=== PATIENT | male | born 1935 | race Caucasian/White ===

== ENCOUNTER 2017-01-11 12:53 | Emergency (ER) | payer MEDICARE, BC ==
[2017-01-11 13:11] VITALS: BP 135/78
--- NOTE | 2017-01-11 13:43 | UC ---
Lower Extremity/Ankle HPI - HPI Summary HPI Summary: acute exacerbation of right foot pain---has an appointment with Dr. Parks on January 25, 2017 hoping to get an injection in foot for pain----has an appointment with Podiatry in 5 days- - History of Current Complaint Chief Complaint: UCLowerExtremity Stated Complaint: RIGHT FOOT PAIN Time Seen by Provider: 01/11/17 13:07 Hx Obtained From: Patient Onset/Duration: Gradual Onset, Lasting Weeks, Worse Since - past few days Severity Initially: Mild Severity Currently: Severe Pain Intensity: 10 Pain Scale Used: 0-10 Numeric Aggravating Factor(s): Standing, Ambulation Alleviating Factor(s): Rest, Elevation Able to Bear Weight: Yes - Allergies/Home Medications Allergies/Adverse Reactions: Allergies Allergy/AdvReac Type Severity Reaction Status Date / Time No Known Allergies Allergy Verified 01/11/17 12:59 PMH/Surg Hx/FS Hx/Imm Hx Previously Healthy: No Neurological History: Other Other Neurological History: Parkinsons - Surgical History Surgical History: Yes Surgery Procedure, Year, and Place: TURP, CYSTOSCOPY, BLADDER BIOPSIES, T&A, 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,BLADDER DISTENSION(STRETCHING-NO IMPLANT) - Family History Known Family History: Negative: Cardiac Disease, Hypertension, Diabetes - Social History Occupation: Retired Lives: With Family Alcohol Use: Occasionally Substance Use Type: None Smoking Status (MU): Former Smoker When Did the Patient Quit Smoking/Using Tobacco: 1966 Review of Systems Constitutional: Negative Skin: Negative Eyes: Negative ENT: Negative Respiratory: Negative Cardiovascular: Negative Gastrointestinal: Negative Genitourinary: Negative Motor: Negative Neurovascular: Negative Musculoskeletal: Arthralgia - 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---has on area near distal 2/3 meta tarsal that is calloused and the bone is painful Neurological: Negative Psychological: Negative Is Patient Immunocompromised?: No All Other Systems Reviewed And Are Negative: Yes Physical Exam Triage Information Reviewed: Yes Appearance: Well-Nourished, Ill-Appearing - chronic, Pain Distress - moderate Vital Signs: Initial Vital Signs Temp 98 F 01/11/17 13:00 Pulse 83 01/11/17 13:00 Resp 18 01/11/17 13:00 BP 135/78 01/11/17 13:00 Pulse Ox 96 01/11/17 13:00 Vital Signs Reviewed: Yes Eye Exam: Normal Eyes: Positive: Conjunctiva Clear ENT Exam: Normal ENT: Positive: Normal ENT inspection, Hearing grossly normal. 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---has on area near distal 2/ 3 meta tarsal that is calloused and the bone is painful Neurological Exam: Normal Neurological: Positive: Alert Psychological Exam: Normal Skin Exam: Normal Lower Extremity Course/Dx - Course Course Of Treatment: patient refused additional pain medication and walker--- encouraged patient to take tylenol, use orthodic follow with speciality care as planned - Differential Dx/Diagnosis Differential Diagnosis/HQI/PQRI: Arthritis, Contusion, Fracture (Closed), Sprain , Strain Provider Diagnoses: Right foot arthritis / pain Discharge - Discharge Plan Condition: Stable Disposition: HOME Patient Education Materials: Osteoarthritis (ED) Referrals: Jose J Pollock MD [Primary Care Provider] - Additional Instructions: Follow with Dr. Parks and podiatry as planned
== END 2017-01-11 13:41 | disposition home or self-care (01) ==
LOC: UCCORT 12:53
DX: M19.071 Primary osteoarthritis, right ankle and foot (principal); M79.671 Pain in right foot; G20 Parkinson's disease; Z87.891 Personal history of nicotine dependence
CPT/HCPCS: 99212; G0463

== ENCOUNTER 2018-05-23 17:44 | Emergency (ER) | payer MEDICARE, BC ==
[2018-05-23 17:53] VITALS: BP 144/63
--- NOTE | 2018-05-23 18:02 | UC ---
Respiratory Complaint HPI - HPI Summary HPI Summary: 83-year-old male comes in with a chief complaint of a cough for approximately 4 days. 4 days ago the cough was mild. He was eating 3 days ago when he coughed and sneezed the same time and he wonders if he aspirated some of the food that he was eating. He does not remember what he was eating. Ever since that time the cough has been worse. Cough is worse when he lays down. He feels a burning in his chest. He does not feel short of breath. He has chronic pedal edema that has not changed. He has no calf pain or history of DVT or pulmonary embolus. He does feel like he is wheezing. 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,BLADDER DISTENSION(STRETCHING-NO IMPLANT) - Family History Known Family History: Negative: Cardiac Disease, Hypertension, Diabetes - Social History Alcohol Use: Occasionally Substance Use Type: None Smoking Status (MU): Former Smoker When Did the Patient Quit Smoking/Using Tobacco: 1966 Review of Systems All Other Systems Reviewed And Are Negative: Yes Constitutional: Positive: Negative Skin: Positive: Negative Eyes: Positive: Negative ENT: Positive: Negative Respiratory: Positive: Cough Cardiovascular: Positive: Other - see hpi Motor: Positive: Negative Neurovascular: Positive: Negative Musculoskeletal: Positive: Edema - chronic Neurological: Positive: Negative Psychological: Positive: Negative Is Patient Immunocompromised?: No Physical Exam Triage Information Reviewed: Yes Appearance: Well-Appearing, No Pain Distress, Well-Nourished Vital Signs: Initial Vital Signs Temp 97.8 F 05/23/18 17:47 Pulse 83 05/23/18 17:47 Resp 24 05/23/18 17:47 BP 144/63 05/23/18 17:47 Pulse Ox 99 05/23/18 17:47 Vital Signs Reviewed: Yes Eye Exam: Normal Eyes: Positive: Conjunctiva Clear ENT: Positive: Pharynx normal Neck exam: Normal Neck: Positive: Supple Respiratory: Positive: Lungs clear, Normal breath sounds, No respiratory distress Cardiovascular: Positive: RRR Musculoskeletal: Positive: Edema @ - b/l, Other: - no calf tenderness Neurological Exam: Normal Neurological: Positive: Alert, Muscle Tone Normal Psychological Exam: Normal Psychological: Positive: Normal Response To Family, Age Appropriate Behavior Skin Exam: Normal UC Diagnostic Evaluation - Laboratory O2 Sat by Pulse Oximetry: 99 Respiratory Course/Dx - Course Course Of Treatment: I discussed the x-ray report with the patient and his . I do not see any obvious infiltrate at this time radiologist reading is pending. Plan is to treat with Augmentin for possible aspiration. Patient was given albuterol here in clinic which did not improve his symptoms at all therefore I don't plan to use a bronchodilator. Plan is to follow-up his primary care doctor and if things are not improving further evaluation and treatment potentially with a follow-up with a animal daycare provider. Patient does have some edema but he says that's chronic and his calves were nontender so at this time I do not believe that CHF or pulmonary embolism as the cause of his symptoms however over I did let the patient and his know that they need close follow-up especially if if he does not improve completely. Also let him know if he worsens with a fever more shortness of breath he's to go to the emergency department. - Differential Dx/Diagnosis Provider Diagnosis: Bronchitis, Cough, Aspiration into airway Discharge - Sign-Out/Discharge Documenting (check all that apply): Patient Departure All imaging exams completed and their final reports reviewed: No - Discharge Plan Condition: Stable Disposition: HOME Prescriptions: Amoxicillin/Clavulanate TAB* [Augmentin TAB 875*] 875 mg PO BID #20 tab Patient Education Materials: Acute Bronchitis (ED), Aspiration Pneumonia (DC), Chronic Cough (ED) Referrals: Jose J Pollock MD [Primary Care Provider] - Mona Nance MD [Medical Doctor] - Additional Instructions: FOLLOW UP WITH YOUR DOCTOR. GO TO THE EMERGENCY DEPARTMENT FOR ANY WORSENING OF YOUR CONDITION; CHEST PAIN, SHORTNESS OF BREATH, YOU FEEL ILL OR QUESTIONS OR CONCERNS. - Billing Disposition and Condition Condition: STABLE Disposition: Home
--- OUTSIDE RECORDS SUMMARY | 2018-05-23 18:52 | XMS REPORT | Continuity of Care Document ---
:1935 External Reference #:[id number] Author Name Janeth Verdin Care Team Providers Name Role Phone Jose J Pollock III, MD Primary Care Physician Unavailable Payers Type Date Identification Numbers Payment Provider Subscriber Policy Number: [id number] Medicare Dutch Chavira PayID: [id number] [address] [place] [address] Policy Number: [id number] [facility] Dutch Chavira Group Number: [id number] [address] PayID: [id number] [place] [address] Advance Directives Type Date Description Status Comment Other Directive 04/04/2007 Health Care Proxy Living Will Current and Verified Problems Date Description Provider Status Onset: 01/12/2011 Benign essential hypertension Jose J Pollock M.D. Active Onset: 01/12/2011 Pure hypercholesterolemia Jose J Pollock M.D. Active Onset: 02/09/2011 Aortic valve disorder Luciano Reno M.D. Active Onset: 02/09/2011 Pre-surgery evaluation Luciano Reno M.D. Active Onset: 02/09/2011 Electrocardiogram abnormal Luciano Reno M.D. Active Onset: 09/22/2011 Dysuria Jose J Pollock M.D. Active Onset: 02/15/2012 Mitral valve disorder Luciano Reno M.D. Active Onset: 02/25/2012 Abnormal gait Jose J Pollock M.D. Active Onset: 04/03/2012 Parkinson's disease Jose J Pollock M.D. 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 Active Onset: 01/03/2013 Chronic interstitial cystitis Jose J Pollock M.D. Active Onset: 10/11/2013 Low blood pressure Luciano Reno M.D. Active Onset: 02/04/2015 Essential hypertension Jose J Pollock M.D. Active Onset: 05/05/2018 Obstructive sleep apnea syndrome Jose J Pollock M.D. Active Family History Date Family Member(s) Problem(s) Comments Father due to Natural Causes () - ? cause; in his 80s Mother due to Bladder Cancer () - in her 80s Social History Type Date Description Comments Sex Unknown Marital Status Lives With Occupation Retired Cigarette Use Quit 40 Years Ago ETOH Use 01/03/2013 Occasionally consumes alcohol Tobacco Use Start: Unknown End: Patient is a former Unknown smoker Recreational Drug Use Denies Drug Use Tobacco Use Start: Unknown Started at 17, quit at 21. Smoked 5 cigs per day. Smoking Status Reviewed: 05/18/18 Started at 17, quit at 21. Smoked 5 cigs per day. Exercise Type/Frequency Exercises regularly some daily exercises, pt started a "boxing for Parkinson's dz" class Allergies, Adverse Reactions, Alerts Description No Known Drug Allergies Medications Medication Date Status Form Strength Qnty SIG Indications Ordering Provider Nitroglycerin 04/13 Active 30gra apply Dutch 0.2% ms sparingly Mecenas, Lidocaine 2% to rectal MD, FACS area as directed Protonix 11/[address] 20mg 90tab Take One Jose J s Tablet By Ramona Pollock M.D. Every Day Rollator 12/01 Active Misc 1unit with 4 s thick jesse Campos M.D. brakes, basket and seat. dx: m48.07 and g20 Sinemet 01/10 Active Tablets 25-100mg 405ta 1 po tid lisa Campos M.D. Miralax Active Packet [id number] 1mon 1/2 dose Unknown /0000 po qday Rapaflo Active Capsules 8mg 30cap 1 by Unknown /0000 s mouth every day Lyrica Active Capsules 100mg 120ca 1 by Unknown /0000 ps mouth daily Zyrtec Allergy Active Tablets 10mg 1 by Unknown /0000 mouth every day Tylenol Active Capsules 325mg 120ca 2 tablets Unknown /0000 ps every 8 hours as needed for pain Amlodipine Active Tablets 10mg 90tab 1 by Jose J Patel Besmiah / s mouth Maris, every day M.D. Advil Active Tablets 200mg 1 tabs 2 Unknown / times a day as needed Hydrocodone-Aceta Active Tablets 10-325mg 1 tab by Unknown minophen / mouth every 6 hours as needed Pyridium Active Tablets 100mg one by Unknown / mouth three times a day for 3 days prn Requip 08/02 Hx Tablets 0.5mg 90tab 1 tabs by s mouth at [facility], - bedtime M.D. 05/03 Tylenol 8 Hour 02/28 Hx Tablets ER 650mg See Unknown Arthritis Pain /2015 Instructi - ons 02/07 Lioresal 02/28 Hx Tablets 10mg Bedtime Unknown Repack /2015 - 05/01 Dawes 02/28 Hx Tablets 10-325mg Q4H - 05/02 Pyridium 02/28 Hx Tablets 100mg Three Times - Daily 05/01 [facility] XR 02/28 Hx Caps ER 20mg 3 tabs 24HR orally - daily 11/23 Requip 10 Hx Tablets 1mg 0.5 by mouth at [facility], - breafeast M.D. 08/02 , 0.5 at 4pm and 1.75 at bedtime- doesnt take breakfast or 4 pm dose,just at hs Requip 09/24 Hx Tablets 1.5mg 1 [facility].. M.[facility]. 03/24 Cialis 12/31 Hx Tablets 20mg 14tab take 1 Jose J Patel /2013 s daily, Maris, - prn M.D. 09/13 Enalapril Maleate 10/17 Hx Tablets 2.5mg 90tab take 1 401.1 Jose J Patel s tab by Juan Jose Pollock at M.D. 11/21 bedtime Requip 08/27 Hx Tablets 0.5mg 810ta Take 3 bs tabs po Andres - tid M.DReginald 09/24 Cialis 01/03 Hx Tablets 10mg 3tabs qd prn Jose J Patel Juan Jose Pollock.DReginald 08/27 Azilect 09/07 Hx Tablets 1mg 90tab take one Carmen s tablet by Andres - mouth M.DReginald 10/23 every Requip 09/01 Hx Tablets 0.5mg 810ta 1 by Carmen bs mouth Juan Jose Campos M.D. 09/01 Enalapril Maleate 08/24 Hx Tablets 10mg 90tab take one Jose J Patel s tablet by Maris - ramona one M.D. 10/17 daily Ropinirole HCL 04/27 Hx Tablets 0.25mg 120ta 1 tab by Silvestre lisa mouth and Emilee, - 2 tabs M.DReginald 09/01 night Hydrocodone 04/03 Hx Tablets 10-300mg 60tab 1 tablet Jose J Patel Bitartrate/Acetflorecita s by preeti Chakraborty - every 4 M.D. 11/07 hours needed Carbidopa/Levodop 02/20 Hx Tablets 25-100mg 90tab one po Ernst /2012 s tid Juan Jose Hebert M.D. 02/20 Ropinirole HCL 02/20 Hx Tablets 0.25mg 120ta 1 tab by Silvestre lisa mouth and Emilee, - 2 tabs M.DReginald 04/27 night Enalapril Maleate 02/14 Hx Tablets 10mg 90tab 1 po qd Jose J Patel Juan Jose Nina M.D. 06/05 Neurontin 12/23 Hx Tablets 600mg 90tab 1 po tid Farooq s Juan Jose Mc M.D.,FACP 12/23 Gabapentin 12/23 Hx Tablets 600mg 180ta take one Jose J Patel bs tablet by Juan Jose Pollock M.D. 12/05 times a day Cymbalta 10/[address] 30mg 90cap 1 po qam Jose J Patel Juan Jose Pool M.D. 02/14 Yaya 09/21 Hx Tablets 5-40mg 30tab one per Jose J Patel s Juan Jose Dhaliwal M.D. 09/02 Cymbalta 09/[address] 60mg 1 po qd Jose J Patel Juan Jose Schmitz M.D. 10/25 Physical Therapy 04/05 Hx pelvice 781.2 Jose J EReginald floor Juan Jose Pollock M.D. 08/24 on interstit ial cystitis Vesicare 12/01 Hx Tablets 5mg 90tab 1 po qd Juan Jose Mcgee M.D. 04/05 Zithromax Z-Ben 08/19 Hx Tablets 250mg 1tabs 2tab 466.0 today and Juan Jose Delcid 1tab Lacie 11/05 daily x 4days Neurontin 11/27 Hx Tablets 600mg 180ta 1 in am, Farooq bs 1tab in Neha Barrera - Lacie,[facility] 12/23 Enalapril Maleate 04/03 Hx Tablets 5mg 90tab 1 po qd Maris s IIIJuan Jose 04/03 Enalapril Maleate 04/03 Hx Tablets 20mg 90tab 1 po qd Jose J Patel Juan Jose Nina M.D. 08/24 Cialis 11/25 Hx Tablets 5mg 30tab 1 PO prn Jose J Patel Juan Jose Nina M.D. 01/03 Astelin 08/22 Hx Solution 137mcg/Sp 1unit 2 bid prn Jose J Patel Juan Jose Patel M.D. 04/02 Metamucil 08/22 Hx Capsules 0.52gm 30cap po qd Jose J Patel s Juan Jose Pollock M.D. 11/25 Protonix 08/[address] 20mg 90tab Take One Jose J Patel s Tablet By Juan Jose Pollock M.D. 11/07 Every Day Cystoprotek 11/21 Hx herbal med taken Physician - 1 bid Practices 04/05 Prelief 11/21 Hx OTC with Jose J Patel meals Juan Jose Pollock- Lacie 11/07 "de-acidi fy the food" Saw Marion 11/21 Hx Capsules 160mg 1 po qd Physician - Practices 02/14 Flonase 11/21 Hx Suspension 50mcg/Act 1Bott 1 Jose J Patel le intranasa Juan Jose Pollock to Lacie 08/22 nostril daily Prevacid Hx Capsules DR 15mg 180ca 1 po bid Jose J Patel Juan Jose Wilkins M.D. 08/22 Paxil Hx Tablets 10mg 90tab 1 tab po Jose J Patel / s Juan Jose Ramirez M.D. 09/21 Multi-Vitamin Hx Tablets 1 PO qd Other Physician - Practices 08/27 Glucosamine Hx Capsules 500-400 qd Other Chondroitin Physician - Practices 09/02 Colace Hx Capsules 100mg 30cap 1 PO bid Other s Physician - Practices 02/14 Fiber Con Hx prn Other Physician - Practices 11/21 Aspirin Hx Tablets 81mg 100ta 1 PO qd Nato, bs MD Danny - 08/24 Votaw-3 Hx Capsules 1000mg 30cap 1 PO qd. Other s Physician - Practices 02/14 Cynthia Hx Tablets 180mg 90tab 1 po qd Jose J E. / s Juan Jose Pollock M.D. 10/10 Azo Standard Hx Tablets 97.5mg prn Unknown Maximum Strength /0000 - 05/01 Flomax Hx Capsules 0.4mg 30cap 1 po qd Unknown /0000 s - 02/24 Valium 00/00 Hx Tablets 5mg 60tab 1/2 tab Jose J E. /0000 s bid prn Maris, - M.D. 09/20 Ibuprofen 00/00 Hx Capsules 200mg prn Unknown / - 08/24 Hydrocodone /00 Hx Tablets 5-500mg 75tab 1 tablet Unknown Bitartrate/Acetam /0000 s by mouth inophen - every 4 12/10 hours needed Azilect Hx Tablets 1mg 1 po Unknown / daily - 10/02 Trospium Chloride Hx Caps ER 60mg Rosas, ER /0000 24HR Juan Jose Brannon MD 01/03 Requip Hx Tablets 0.25mg 180ta 2 po tid Unknown / bs - 09/01 Requip 0000 Hx Tablets 1mg 90tab take one Unknown s tablet by - mouth tid 08/27 Cysto Protek /00 Hx qd / - 01/03 Excedrin Migraine Hx Tablets 250-250-6 qd otc Unknown / 5mg - 08/27 [facility] XR Hx Caps ER 60mg 30cap 1 po qd Unknown / 24HR s - 09/20 Cystoprotek Hx Capsule 2 caps po Unknown / daily - 08/27 Aspirin Low Dose Hx Tablets 81mg 30tab 1 po qd Unknown / s - 09/02 Requip 0000 Hx Tablets 0.25mg 90tab take one Juliana M. /0000 s by mouth Feliz, - every M.D. 09/14 night at /2016 bedtime, together with three 0.5mg tabs Singulair Hx Tablets 10mg 90tab take one Jose J E. /0000 s tablet by Maris, - mouth at M.D. 02/04 bedtime /2014 prn Aloe Vera 00 Hx Capsules 4 PO Unknown / Daily. - 10/10 Aleve 00 Hx Tablets 220mg 1 Tablet Unknown /0000 Daily - 01/22 Myrbetriq Hx Tablets ER 50mg 1 by Unknown /0000 24HR mouth - every day 11/07 Nortriptyline HCL 00/ Hx Capsules 10mg 90cap 1 po Unknown /0000 s qhs.. - 12/24 Baclofen Hx Tablets 10mg 90tab 1/2 tab Unknown /0000 s bid - 09/02 Trospium Chloride Hx Tablets 60mg 60tab 1 tab by Unknown /0000 s mouth - once a /2018 Carbidopa-Levodop Hx Tablets 25-100mg 90tab 1 by Unknown a /0000 s mouth - three 05/24 times day Azo Tabs Hx Tablets 95mg prn Unknown /0000 - 09/22 Tylenol Extra Hx Tablets 500mg 2 by Unknown Strength /0000 mouth as - needed 10/30 Baclofen Hx Tablets 10mg 1 by Unknown /0000 mouth two - times a 11/07 day needed Azelastine HCL Hx Solution 0.1% 2 Unknown (Nasal) /0000 inhalatio - ns in 11/02 nostril twice daily as needed Aleve Hx Tablets 220mg 1 po as Unknown /0000 needed - 11/07 [facility] XR Hx Caps ER 60mg 1 po qday Unknown /0000 24HR - 11/02 Uribel Hx Capsules 118mg 1 tab Unknown /0000 orally - every 4 /16 hrs prn /2017 Citrucel Hx Tablets 500mg 2 tabs Unknown /0000 twice a - day 11/07 Calcium Hx 65mg 1 tab Unknown Glycerophosphate /0000 daily by - mouth 04/10 Seroquel Hx Tablets 25mg 45tab take 1/2 Carmen /0000 s tab by Andres, - mouth at M.D. 05/05 bedtime /2018 Sorbitol Hx Solution 70% 30 Unknown / millilite - rs by 02/01 mouth needed constipat ion Prelief Hx Tablets 340(65-50 take Unknown /0000 )mg - (CA-P) 05/03 Immunizations CPT Code Status Date Vaccine Lot # [id number] Given 02/02/2018 Fluzone High Dose 63013 Given 02/07/2017 Influenza Virus Vaccine, Quadrivalent, Split, Preservative Free 58538 Given 02/26/2016 Fluzone High Dose 50437 Given 02/04/2015 Influenza Virus Vaccine, Quadrivalent, Split, [id number] Preservative Free 22874 Given 09/02/2014 Pneumococcal Conjugate Vaccine 13 Valent For [id number] Intramuscular Use 03205 Given 01/23/2014 Tdap - Tetanus/Diptheria/Acellular Pertussis [id number] 74343 Given 01/23/2014 Influenza Virus Vaccine, Quadrivalent, Split, [id number] Preservative Free Q2038 Given 02/03/2012 Fluzone Vaccine Q2038 Given 01/25/2012 Fluzone Vaccine Q2038 Given 01/04/2011 Fluzone Vaccine [id number] 67923 Given 02/10/2010 Influenza Virus 3Yrs & Over [id number] 49348 Given 02/13/2009 Influenza Virus 3Yrs & Over 63246 Given 11/22/2007 Zoster (Zostavax) [id number] 32179 Given 11/07/2003 Td (History By Patient) 24650 Given 10/20/2000 Pneumovax (History By Patient) Vital Signs Date Vital Result Comment 05/18/2018 10:17am Heart Rate 74 /min Respiratory Rate 18 /min Body Temperature 97.0 F 05/09/2018 1:32pm Height 62.5 inches 5'2.50" Weight 180.00 lb BP Systolic Sitting 108 mmHg BP Diastolic Sitting 66 mmHg Respiratory Rate 16 /min Pain Level 3 BMI (Body Mass Index) 32.4 kg/m2 05/05/2018 9:42am Height 62.5 inches 5'2.50" Weight 183.00 lb Heart Rate 73 /min BP Systolic 100 mmHg BP Diastolic 56 mmHg Body Temperature 97.4 F O2 % BldC Oximetry 97 % BMI (Body Mass Index) 32.9 kg/m2 04/13/2018 9:58am Height 62.5 inches 5'2.50" Weight 184.00 lb Heart Rate 76 /min BP Systolic 146 mmHg BP Diastolic 90 mmHg Respiratory Rate 18 /min Body Temperature 97.7 F BMI (Body Mass Index) 33.1 kg/m2 04/11/2018 12:02pm Height 62.5 inches 5'2.50" Weight 184.00 lb Heart Rate 74 /min BP Systolic 118 mmHg BP Diastolic 72 mmHg BMI (Body Mass Index) 33.1 kg/m2 02/07/2018 11:01am Height 62.5 inches 5'2.50" Weight 175.00 lb BP Systolic Sitting 124 mmHg BP Diastolic Sitting 68 mmHg Respiratory Rate 17 /min Pain Level 5 BMI (Body Mass Index) 31.5 kg/m2 12/01/2017 1:25pm Height 62.5 inches 5'2.50" Weight 176.00 lb Heart Rate 60 /min BP Systolic Sitting 116 mmHg lue rg cuff BP Diastolic Sitting 62 mmHg lue rg cuff BMI (Body Mass Index) 31.7 kg/m2 Ejection Fraction 55-60% echo 12/23/16 11/24/2017 10:22am Height 62.5 inches 5'2.50" Weight 174.00 lb Heart Rate 69 /min BP Systolic Sitting 120 mmHg BP Diastolic Sitting 50 mmHg O2 % BldC Oximetry 96 % BMI (Body Mass Index) 31.3 kg/m2 11/08/2017 11:07am Height 62.5 inches 5'2.50" Weight 172.00 lb Heart Rate 70 /min BP Systolic Sitting 116 mmHg BP Diastolic Sitting 66 mmHg Respiratory Rate 20 /min O2 % BldC Oximetry 93 % BMI (Body Mass Index) 31.0 kg/m2 08/23/2017 3:46pm Height 62.5 inches 5'2.50" Weight 178.00 lb Heart Rate 81 /min BP Systolic Sitting 144 mmHg BP Diastolic Sitting 78 mmHg Respiratory Rate 16 /min Pain Level 2 O2 % BldC Oximetry 96 % Ra BMI (Body Mass Index) 32.0 kg/m2 05/23/2017 2:51pm Weight 185.00 lb Heart Rate 93 /min BP Systolic Sitting 105 mmHg BP Diastolic Sitting 65 mmHg Body Temperature 97.4 F O2 % BldC Oximetry 96 % 05/03/2017 4:22pm Height 62.5 inches 5'2.50" Weight 183.00 lb Heart Rate 90 /min BP Systolic 116 mmHg BP Diastolic 74 mmHg Respiratory Rate 20 /min Pain Level 8 O2 % BldC Oximetry 96 % BMI (Body Mass Index) 32.9 kg/m2 05/02/2017 10:39am Height 62.5 inches 5'2.50" Weight 182.00 lb Heart Rate 88 /min BP Systolic Sitting 150 mmHg Right arm BP Diastolic Sitting 100 mmHg Right arm Body Temperature 97.3 F Pain Level 9 burning/sharp pain rectum O2 % BldC Oximetry 96 % BMI (Body Mass Index) 32.8 kg/m2 02/08/2017 10:35am Height 63 inches 5'3" Weight 175.00 lb Heart Rate 83 /min BP Systolic Sitting 124 mmHg BP Diastolic Sitting 74 mmHg Respiratory Rate 16 /min Pain Level 7 O2 % BldC Oximetry 98 % Ra BMI (Body Mass Index) 31.0 kg/m2 01/11/2017 12:00am Weight 175.00 lb Heart Rate 83 /min BP Systolic 135 mmHg BP Diastolic 78 mmHg Respiratory Rate 18 /min Body Temperature 98.0 F O2 % BldC Oximetry 96 % 12/07/2016 3:08pm Height 63 inches 5'3" Weight 177.00 lb with shoes Heart Rate 94 /min BP Systolic Sitting 110 mmHg LA reg cuff BP Diastolic Sitting 68 mmHg LA reg cuff BMI (Body Mass Index) 31.4 kg/m2 Ejection Fraction 55% - 60% echo 11/28/14 12/01/2016 11:44am Height 63 inches 5'3" Weight 175.00 lb Heart Rate 78 /min BP Systolic Sitting 98 mmHg BP Diastolic Sitting 60 mmHg Respiratory Rate 16 /min BMI (Body Mass Index) 31.0 kg/m2 11/03/2016 9:03am Height 63 inches 5'3" Heart Rate 92 /min BP Systolic 124 mmHg BP Diastolic 80 mmHg Respiratory Rate 20 /min Pain Level 9 10/15/2016 9:44am Height 63 inches 5'3" Weight 179.25 lb Heart Rate 90 /min BP Systolic 120 mmHg BP Diastolic 80 mmHg Body Temperature 98.1 F O2 % BldC Oximetry 95 % BMI (Body Mass Index) 31.7 kg/m2 09/14/2016 10:21am Height 63 inches 5'3" Weight 180.25 lb Heart Rate 90 /min BP Systolic Sitting 118 mmHg BP Diastolic Sitting 68 mmHg Respiratory Rate 17 /min Pain Level 0 BMI (Body Mass Index) 31.9 kg/m2 04/28/2016 9:45am Height 63 inches 5'3" Weight 185.00 lb BP Systolic Sitting 142 mmHg BP Diastolic Sitting 78 mmHg Pain Level 2 BMI (Body Mass Index) 32.8 kg/m2 03/31/2016 1:06pm Height 63 inches 5'3" Weight 185.00 lb BP Systolic 126 mmHg BP Diastolic 70 mmHg Pain Level 2 BMI (Body Mass Index) 32.8 kg/m2 03/24/2016 11:15am Height 63 inches 5'3" Weight 185.00 lb Heart Rate 101 /min BP Systolic Sitting 142 mmHg BP Diastolic Sitting 76 mmHg Body Temperature 97.7 F O2 % BldC Oximetry 97 % BMI (Body Mass Index) 32.8 kg/m2 03/08/2016 11:24am Height 63 inches 5'3" Weight 180.00 lb Heart Rate 72 /min BP Systolic 122 mmHg BP Diastolic 72 mmHg Pain Level 9 BMI (Body Mass Index) 31.9 kg/m2 03/01/2016 11:15am Heart Rate 78 /min BP Systolic Sitting 120 mmHg BP Diastolic Sitting 70 mmHg Pain Level 0 O2 % BldC Oximetry 96 % 12/23/2015 3:21pm Height 65 inches 5'5" Weight 180.00 lb with shoes Heart Rate 80 /min BP Systolic Sitting 112 mmHg LA reg cuff BP Diastolic Sitting 60 mmHg LA reg cuff Respiratory Rate 17 /min BMI (Body Mass Index) 30.0 kg/m2 Ejection Fraction 55-60% date 11/28/14 ECHO 12/23/2015 9:48am Height 65 inches 5'5" Weight 180.00 lb Heart Rate 64 /min BP Systolic Sitting 136 mmHg BP Diastolic Sitting 70 mmHg BMI (Body Mass Index) 30.0 kg/m2 09/23/2015 12:01pm Weight 184.00 lb Heart Rate 77 /min BP Systolic Sitting 112 mmHg BP Diastolic Sitting 69 mmHg Body Temperature 96.5 F 09/02/2015 10:20am Height 63.5 inches 5'3.50" Weight 180.00 lb Heart Rate 84 /min BP Systolic Sitting 108 mmHg BP Diastolic Sitting 66 mmHg BMI (Body Mass Index) 31.4 kg/m2 02/05/2015 9:45am Height 63.5 inches 5'3.50" Weight 180.00 lb Heart Rate 76 /min BP Systolic Sitting 114 mmHg BP Diastolic Sitting 70 mmHg Respiratory Rate 14 /min BMI (Body Mass Index) 31.4 kg/m2 02/04/2015 1:31pm Height 63.5 inches 5'3.50" Weight 182.50 lb Heart Rate 86 /min BP Systolic Sitting 132 mmHg BP Diastolic Sitting 84 mmHg Respiratory Rate 16 /min Body Temperature 97.6 F Pain Level 0 O2 % BldC Oximetry 93 % BMI (Body Mass Index) 31.8 kg/m2 01/21/2015 10:30am Height 65 inches 5'5" Weight 180.00 lb Heart Rate 74 /min BP Systolic Sitting 110 mmHg BP Diastolic Sitting 64 mmHg BMI (Body Mass Index) 30.0 kg/m2 12/25/2014 10:44am Height 65 inches 5'5" Weight 182.50 lb w/ shoes Heart Rate 80 /min BP Systolic Sitting 114 mmHg LA, reg BP Diastolic Sitting 62 mmHg LA, reg BMI (Body Mass Index) 30.4 kg/m2 Ejection Fraction 55-60% 11/28/14 ECHO 12/03/2014 1:34pm Height 65 inches 5'5" Weight 178.00 lb with shoes Heart Rate 88 /min regular BP Systolic 116 mmHg left arm home cuff BP Diastolic 65 mmHg left arm home cuff BP Systolic Sitting 114 mmHg left arm reg cuff BP Diastolic Sitting 66 mmHg left arm reg cuff Respiratory Rate 18 /min BMI (Body Mass Index) 29.6 kg/m2 11/21/2014 3:07pm Height 65 inches 5'5" Weight 178.00 lb w/o shoes Heart Rate 78 /min reg BP Systolic 84 mmHg Rue, reg cuff BP Diastolic 60 mmHg Rue, reg cuff BP Systolic Sitting 84 mmHg Lue, reg cuff BP Diastolic Sitting 52 mmHg Lue, reg cuff Respiratory Rate 18 /min BMI (Body Mass Index) 29.6 kg/m2 Ejection Fraction 60-65% as of 11/06/13 echo 09/24/2014 9:36am Height 65 inches 5'5" Weight 180.00 lb Heart Rate 80 /min BP Systolic Sitting 108 mmHg BP Diastolic Sitting 66 mmHg BMI (Body Mass Index) 30.0 kg/m2 09/19/2014 2:12pm Height 65 inches 5'5" Weight 181.00 lb Heart Rate 89 /min BP Systolic Sitting 100 mmHg BP Diastolic Sitting 60 mmHg Body Temperature 97.8 F O2 % BldC Oximetry 96 % BMI (Body Mass Index) 30.1 kg/m2 09/02/2014 11:33am Weight 182.00 lb Heart Rate 54 /min BP Systolic Sitting 138 mmHg BP Diastolic Sitting 72 mmHg Body Temperature 97.6 F O2 % BldC Oximetry 91 % 04/19/2014 10:23am Height 65 inches 5'5" Weight 183.00 lb with shoes Heart Rate 84 /min BP Systolic Sitting 116 mmHg LA, reg cuff BP Diastolic Sitting 62 mmHg LA, reg cuff BP Systolic Standing 108 mmHg LA BP Diastolic Standing 64 mmHg LA Respiratory Rate 16 /min BMI (Body Mass Index) 30.4 kg/m2 04/09/2014 10:20am Height 65 inches 5'5" Weight 165.00 lb Heart Rate 86 /min BP Systolic Sitting 104 mmHg BP Diastolic Sitting 60 mmHg BMI (Body Mass Index) 27.5 kg/m2 01/23/2014 10:32am Weight 175.75 lb Heart Rate 83 /min BP Systolic Sitting 130 mmHg BP Diastolic Sitting 52 mmHg Body Temperature 97.0 F O2 % BldC Oximetry 92 % 12/25/2013 10:31am Weight 165.00 lb Heart Rate 84 /min BP Systolic Sitting 104 mmHg BP Diastolic Sitting 60 mmHg Respiratory Rate 12 /min 12/05/2013 11:03am Height 65 inches 5'5" Weight 168.00 lb w/clothes and shoes Heart Rate 84 /min BP Systolic Sitting 134 mmHg BP Diastolic Sitting 76 mmHg Respiratory Rate 14 /min BMI (Body Mass Index) 28.0 kg/m2 11/01/2013 12:58pm Height 65 inches 5'5" Weight 168.50 lb Heart Rate 76 /min BP Systolic Sitting 98 mmHg BP Diastolic Sitting 50 mmHg Respiratory Rate 16 /min BMI (Body Mass Index) 28.0 kg/m2 10/17/2013 2:07pm Height 65 inches 5'5" Weight 170.00 lb Heart Rate 80 /min BP Systolic 89 mmHg home unit, left BP Diastolic 48 mmHg home unit, left BP Systolic Sitting 98 mmHg left, reg BP Diastolic Sitting 58 mmHg left, reg BP Systolic Standing 72 mmHg left, stand BP Diastolic Standing 48 mmHg left, stand BMI (Body Mass Index) 28.3 kg/m2 10/11/2013 2:11pm Height 65 inches 5'5" Weight 167.75 lb Heart Rate 80 /min BP Systolic Sitting 92 mmHg BP Diastolic Sitting 46 mmHg Respiratory Rate 14 /min BMI (Body Mass Index) 27.9 kg/m2 09/20/2013 3:29pm Weight 173.25 lb Heart Rate 84 /min BP Systolic Sitting 150 mmHg BP Diastolic Sitting 90 mmHg Body Temperature 98.5 F 08/27/2013 10:43am Weight 171.00 lb Heart Rate 82 /min BP Systolic Sitting 114 mmHg BP Diastolic Sitting 64 mmHg Body Temperature 97.1 F 02/16/2013 1:23pm Height 64 inches 5'4" Weight 167.00 lb Heart Rate 76 /min BP Systolic Sitting 150 mmHg BP Diastolic Sitting 90 mmHg Respiratory Rate 16 /min BMI (Body Mass Index) 28.7 kg/m2 01/03/2013 2:17pm Height 64 inches 5'4" Weight 171.00 lb Heart Rate 92 /min BP Systolic Sitting 120 mmHg BP Diastolic Sitting 68 mmHg BMI (Body Mass Index) 29.3 kg/m2 09/07/2012 1:12pm Heart Rate 80 /min BP Systolic Sitting 114 mmHg BP Diastolic Sitting 60 mmHg Respiratory Rate 12 /min 08/24/2012 11:23am Weight 167.00 lb Heart Rate 76 /min BP Systolic Sitting 118 mmHg BP Diastolic Sitting 80 mmHg 04/03/2012 3:38pm Height 64.25 inches 5'4.25" Weight 168.00 lb Heart Rate 80 /min BP Systolic Sitting 128 mmHg BP Diastolic Sitting 72 mmHg BMI (Body Mass Index) 28.6 kg/m2 02/25/2012 9:57am Height 64.5 inches 5'4.50" Weight 169.00 lb Heart Rate 84 /min BP Systolic Sitting 120 mmHg BP Diastolic Sitting 76 mmHg BMI (Body Mass Index) 28.6 kg/m2 02/15/2012 2:13pm Height 64.5 inches 5'4.50" Weight 169.00 lb Heart Rate 80 /min BP Systolic Sitting 130 mmHg BP Diastolic Sitting 80 mmHg Respiratory Rate 20 /min BMI (Body Mass Index) 28.6 kg/m2 12/01/2011 9:53am Height 64.5 inches 5'4.50" Weight 165.00 lb Heart Rate 80 /min BP Systolic Sitting 144 mmHg BP Diastolic Sitting 76 mmHg BMI (Body Mass Index) 27.9 kg/m2 09/22/2011 1:05pm Height 64.5 inches 5'4.50" Weight 171.00 lb Heart Rate 70 /min BP Systolic Sitting 118 mmHg BP Diastolic Sitting 60 mmHg BMI (Body Mass Index) 28.9 kg/m2 04/05/2011 10:52am Height 64.5 inches 5'4.50" Weight 166.00 lb Heart Rate 88 /min BP Systolic Sitting 154 mmHg BP Diastolic Sitting 84 mmHg BMI (Body Mass Index) 28.1 kg/m2 02/09/2011 2:12pm Weight 166.00 lb Heart Rate 76 /min BP Systolic 144 mmHg BP Diastolic 72 mmHg Respiratory Rate 16 /min 12/01/2010 9:54am Weight 164.00 lb Heart Rate 72 /min BP Systolic Sitting 150 mmHg BP Diastolic Sitting 90 mmHg 08/19/2010 11:07am Weight 164.00 lb Heart Rate 72 /min BP Systolic Sitting 124 mmHg BP Diastolic Sitting 72 mmHg Body Temperature 98.1 F lt ear 04/28/2010 11:04am Weight 166.00 lb Heart Rate 76 /min BP Systolic Sitting 158 mmHg BP Diastolic Sitting 84 mmHg 04/13/2010 9:29am Weight 167.00 lb Heart Rate 80 /min BP Systolic 160 mmHg BP Diastolic 82 mmHg Respiratory Rate 18 /min 02/10/2010 2:05pm Weight 166.00 lb Heart Rate 78 /min BP Systolic Sitting 132 mmHg BP Diastolic Sitting 82 mmHg 01/07/2010 4:13pm Weight 165.00 lb Heart Rate 72 /min BP Systolic Sitting 150 mmHg BP Diastolic Sitting 88 mmHg 11/27/2009 9:05am Weight 166.00 lb Heart Rate 73 /min BP Systolic Sitting 164 mmHg BP Diastolic Sitting 98 mmHg 10/28/2009 9:54am Weight 165.00 lb Heart Rate 78 /min BP Systolic Sitting 160 mmHg BP Diastolic Sitting 84 mmHg 04/29/2009 11:01am Weight 170.00 lb Heart Rate 72 /min BP Systolic Sitting 160 mmHg BP Diastolic Sitting 82 mmHg 04/03/2009 4:10pm Heart Rate 68 /min BP Systolic Sitting 176 mmHg BP Diastolic Sitting 86 mmHg 03/26/2009 11:45am Height 64.5 inches 5'4.50" Weight 175.00 lb Heart Rate 78 /min BP Systolic Sitting 160 mmHg BP Diastolic Sitting 72 mmHg BMI (Body Mass Index) 29.6 kg/m2 11/25/2008 9:11am Height 64.5 inches 5'4.50" Weight 165.00 lb Heart Rate 76 /min BP Systolic Sitting 150 mmHg BP Diastolic Sitting 94 mmHg BMI (Body Mass Index) 27.9 kg/m2 08/22/2008 11:41am Height 64.5 inches 5'4.50" Weight 172.00 lb Heart Rate 80 /min BP Systolic Sitting 144 mmHg BP Diastolic Sitting 80 mmHg BMI (Body Mass Index) 29.1 kg/m2 11/22/2007 9:03am Height 64.5 inches 5'4.50" Weight 164.00 lb down 7# since last year Heart Rate 68 /min BP Systolic Sitting 114 mmHg BP Diastolic Sitting 80 mmHg BMI (Body Mass Index) 27.7 kg/m2 11/08/2006 9:19am Height 64.5 inches 5'4.50" Weight 171.00 lb Heart Rate 68 /min BP Systolic Sitting 134 mmHg BP Diastolic Sitting 88 mmHg BMI (Body Mass Index) 28.9 kg/m2 Results Test Date Facility Test Result H/L Range Note Comp Metabolic Panel 05/01/[address] [facility] Sodium 143 mmol/L N 135-145 [address] [place] [address] [phone] Potassium 4.1 mmol/L N 3.5-5.0 Chloride 109 mmol/L N 101-111 Co2 Carbon Dioxide 27 mmol/L N 22-32 Anion Gap 7 mmol/L N 2-11 Glucose 77 mg/dL N 70-100 Blood Urea Nitrogen 15 mg/dL N 6-24 Creatinine 1.28 mg/dL High 0.67-1.17 BUN/Creatinine Ratio 11.7 N 8-20 Calcium 9.4 mg/dL N 8.6-10.3 Total Protein 6.5 g/dL N 6.4-8.9 Albumin 4.3 g/dL N 3.2-5.2 Globulin 2.2 g/dL N 2-4 Albumin/Globulin Ratio 2.0 N 1-3 Total Bilirubin 0.90 mg/dL N 0.2-1.0 Alkaline Phosphatase 56 U/L N 34-104 Alt 8 U/L N 7-52 Ast 21 U/L N 13-39 Egfr Non- 53.8 >60 Egfr 65.1 >60 1 Lipid Profile 05/01/[address] [facility] Triglycerides 89 mg/dL 2 (Trig/Chol/HDL) [address] [place] [address] [phone] Cholesterol 185 mg/dL 3 HDL Cholesterol 48.0 mg/dL 4 LDL Cholesterol 119 mg/dL 5 Urinalysis Profile 04/20/[address] [facility] Urine Color Yellow [address] [place] [address] [phone] Urine Appearance Clear Urine Specific Cashion 1.012 N 1.010-1.030 Urine pH 6.0 N 5-9 Urine Urobilinogen Negative Negative Urine Ketones Negative Negative Urine Protein Negative Negative Urine Leukocytes 2+ Abnormal Negative Urine Blood Negative Negative Urine Nitrite Negative Negative Urine Bilirubin Negative Negative Urine Glucose Negative Negative Urine White Blood Cell 3+(>20/hpf) Abnormal Absent Urine Red Blood Cell 1+(3-5/hpf) Abnormal Absent Urine Bacteria Absent Absent Urine Squamous Epithelial Cell Present Abnormal Absent Urine Hyaline Casts Present Abnormal Absent Urine Culture And 04/20/[address] [facility] Urine Culture SEE RESULT [address] [place] [address] [phone] Ua Routine 04/20/2018 [facility] Ua Specific <pending > [address] [place] [address] [phone] Ua PH <pending> Ua Color <pending> Ua Appera <pending> Ua WBC <pending> Ua Protein <pending> Ua Glucose <pending> Ua Ketones <pending> Ua Bilirubin <pending> Ua Urobilinogen <pending> Ua Nitrite <pending> Ua Occult Blood <pending> Culture Urine & 04/20/2018 [facility] Culture Urine < pending> Sensitvities [address] [place] [address] [phone] Urinalysis Profile 05/19/[address] [facility] Urine Color Ghazala [address] [place] [address] [phone] Urine Appearance Clear Urine Specific Cashion 1.015 N 1.010-1.030 Urine pH 6.0 N 5-9 Urine Urobilinogen Positive Abnormal Negative Urine Ketones Trace Abnormal Negative Urine Protein 1+(30 mg/dL) Abnormal Negative Urine Leukocytes Negative Negative Urine Blood 2+ Abnormal Negative Urine Nitrite Positive Abnormal Negative Urine Bilirubin Negative Negative Urine Glucose Negative Negative Urine White Blood Cell 3+(>20/hpf) Abnormal Absent Urine Red Blood Cell 3+(>10/hpf) Abnormal Absent Urine Bacteria Absent Absent Urine Squamous Epithelial Cell Present Abnormal Absent Urine Culture And 05/19/[address] [facility] Urine Culture SEE RESULT [address] [place] [address] [phone] Vitamin B12 And 04/27/[address] [facility] Vitamin B12 315 pg/mL N 180-91 8 Folate Serum [address] [place] [address] [phone] Folic Acid (Folate) > 24.20 ng/mL >3.99 9 Laboratory test 04/27/[address] [facility] Magnesium 2.0 mg/dL N 1.9-2.7 10 finding [address] [place] [address] [phone] Lipid Profile 04/27/[address] [facility] Triglycerides 83 mg/dL 11 (Trig/Chol/HDL) [address] [place] [address] [phone] Cholesterol 170 mg/dL 12 HDL Cholesterol 48.1 mg/dL 13 LDL Cholesterol 105 mg/dL 14 Comp Metabolic 04/27/[address] [facility] Potassium 4.6 mmol/L N 3.5-5.0 Panel [address] [place] [address] [phone] Chloride 105 mmol/L N 101-111 Co2 Carbon Dioxide 31 mmol/L N 22-32 Glucose 88 mg/dL N 70-100 Blood Urea Nitrogen 17 mg/dL N 6-24 Creatinine 1.38 mg/dL High 0.67-1.17 BUN/Creatinine Ratio 12.3 N 8-20 Calcium 9.4 mg/dL N 8.6-10.3 Total Protein 6.3 g/dL Low 6.4-8.9 Albumin 4.1 g/dL N 3.2-5.2 Globulin 2.2 g/dL N 2-4 Albumin/Globulin Ratio 1.9 N 1-3 Total Bilirubin 1.00 mg/dL N 0.2-1.0 Alkaline Phosphatase 60 U/L N 34-104 Alt 22 U/L N 7-52 Ast 20 U/L N 13-39 Egfr Non- 49.5 >60 Egfr 63.6 >60 15 Sodium 140 mmol/L N 133-145 Anion Gap 4 mmol/L N 2-11 Laboratory Studies 12/14/2016 N2N/[facility]D Import Urine Specific 1.024 1.010- 1.030 Cashion Urine pH 5.0 5-9 Vitamin B12 And 03/26/[address] [facility] Vitamin B12 256 pg/mL N 180-914 16 Folate Serum [address] [place] [address] [phone] Folic Acid (Folate) 15.99 ng/mL N >3.99 17 Laboratory test 03/26/[address] [facility] Magnesium 2.1 mg/dL N 1.9-2.7 18 finding [address] [place] [address] [phone] Lipid Profile 03/26/[address] [facility] Triglycerides 117 mg/dL N 19 (Trig/Chol/HDL) [address] [place] [address] [phone] Cholesterol 164 mg/dL N 20 HDL Cholesterol 42.6 mg/dL N 21 LDL Cholesterol 98 mg/dL N 22 Comp Metabolic Panel 03/26/[address] [facility] Sodium 139 mmol/L N 133-145 [address] [place] [address] [phone] Potassium 4.1 mmol/L N 3.5-5.0 Chloride 104 mmol/L N 101-111 Co2 Carbon Dioxide 31 mmol/L N 22-32 Anion Gap 4 mmol/L N 2-11 Glucose 88 mg/dL N 70-100 Blood Urea Nitrogen 20 mg/dL N 6-24 Creatinine 1.48 mg/dL High 0.67-1.17 BUN/Creatinine Ratio 13.5 N 8-20 Calcium 9.4 mg/dL N 8.6-10.3 Total Protein 6.8 g/dL N 6.4-8.9 Albumin 4.1 g/dL N 3.2-5.2 Globulin 2.7 g/dL N 2-4 Albumin/Globulin Ratio 1.5 N 1-3 Total Bilirubin 1.30 mg/dL High 0.2-1.0 Alkaline Phosphatase 60 U/L N 34-104 Alt 12 U/L N 7-52 Ast 22 U/L N 13-39 Egfr Non- 45.7 N >60 Egfr 58.8 N >60 23 Lipid Profile 01/21/[address] [facility] Triglycerides 95 mg/dL N 24 (Trig/Chol/HDL) [address] [place] [address] [phone] Cholesterol 169 mg/dL N 25 HDL Cholesterol 36.9 mg/dL N 26 LDL Cholesterol 113 mg/dL N 27 Comp Metabolic Panel 01/21/[address] [facility] Sodium 140 mmol/L N 133-145 [address] [place] [address] [phone] Potassium 4.3 mmol/L N 3.5-5.0 Chloride 106 mmol/L N 101-111 Co2 Carbon Dioxide 29 mmol/L N 22-32 Anion Gap 5 mmol/L N 2-11 Glucose 87 mg/dL N 70-100 Blood Urea Nitrogen 20 mg/dL N 6-24 Creatinine 1.57 mg/dL High 0.67-1.17 BUN/Creatinine Ratio 12.7 N 8-20 Calcium 8.8 mg/dL N 8.6-10.3 Total Protein 6.2 g/dL Low 6.4-8.9 Albumin 3.9 g/dL N 3.2-5.2 Globulin 2.3 g/dL N 2-4 Albumin/Globulin Ratio 1.7 N 1-3 Total Bilirubin 0.90 mg/dL N 0.2-1.0 Alkaline Phosphatase 45 U/L N 34-104 Alt 6 U/L Low 7-52 Ast 28 U/L N 13-39 Egfr Non- 42.8 N >60 Egfr 55.1 N >60 28 Lipid Profile 01/21/[address] [facility] Triglycerides 96 mg/dL N 29 (Trig/Chol/HDL) [address] [place] [address] [phone] Cholesterol 211 mg/dL N 30 HDL Cholesterol 52.3 mg/dL N 31 LDL Cholesterol 140 mg/dL N 32 Comp Metabolic Panel 01/21/[address] [facility] Sodium 140 mmol/L N 133-[address] [place] [address] [phone] Potassium 4.3 mmol/L N 3.7-5.6 Chloride 106 mmol/L N 101-111 Co2 Carbon Dioxide 30 mmol/L N 22-32 Anion Gap 4 mmol/L N 2-11 Blood Urea Nitrogen 21 mg/dL N 6-24 Creatinine 1.64 mg/dL High 0.67-1.17 BUN/Creatinine Ratio 12.8 N 8-20 Calcium 9.3 mg/dL N 8.6-10.3 Total Protein 7.0 g/dL N 6.4-8.9 Albumin 4.5 g/dL N 3.2-5.2 Globulin 2.5 g/dL N 2-4 Albumin/Globulin Ratio 1.8 N 1-3 Total Bilirubin 0.90 mg/dL N 0.2-1.0 Alkaline Phosphatase 46 U/L N 34-104 Alt 11 U/L N 7-52 Ast 31 U/L N 13-39 Egfr Non- 40.8 N >60 Egfr 52.5 N >60 33 Laboratory test 01/21/[address] [facility] Glucose 75 mg/dL N 70- 100 finding [address] [place] [address] [phone] CBC W/Auto Diff 10/11/[address] [facility] White Blood 6.6 10^3/uL N 4.8-10.[address] [place] [address] [phone] Red Blood Count 4.76 10^6/uL N 4.0-5.4 Hemoglobin 14.6 g/dL N 14.0-18.0 Hematocrit 42 % N 42-52 Mean Corpuscular Volume 89 fL N 80-94 Mean Corpuscular Hemoglobin 31 pg N 27-31 Mean Corpuscular HGB Conc 35 g/dL N 31-36 Red Cell Distribution Width 13 % N 10.5-15 Platelet Count 209 10^3/uL N 150-450 Mean Platelet Volume 8 um3 N 7.4-10.4 Abs Neutrophils 4.4 10^3/uL N 1.5-7.7 Abs Lymphocytes 1.5 10^3/uL N 1.0-4.8 Abs Monocytes 0.5 10^3/uL N 0-0.8 Abs Eosinophils 0.1 10^3/uL N 0-0.6 Abs Basophils 0.1 10^3/uL N 0-0.2 Abs Nucleated RBC 0.01 10^3/uL N Granulocyte % 66.9 % N 38-83 Lymphocyte % 23.0 % Low 25-47 Monocyte % 7.0 % N 1-9 Eosinophil % 2.2 % N 0-6 Basophil % 0.9 % N 0-2 Nucleated Red Blood Cells % 0.1 N Culture Urine 10/11/[address] [facility] Urine Culture (SEE NOTE) 34 [address] [place] [address] [phone] Ua Routine 10/11/[address] [facility] Urine Color Yellow N [address] [place] [address] [phone] Urine Appearance Clear N Urine Specific Cashion 1.021 N 1.010-1.030 Urine pH 5.0 N 5-9 Urine Urobilinogen Negative N Negative Urine Ketones Negative N Negative Urine Protein Negative N Negative Urine Leukocytes Trace Abnormal Negative Urine Blood 1+ Abnormal Negative * * Abnormal Negative 35 Urine Nitrite Negative N Negative Urine Bilirubin Negative N Negative Urine Glucose Negative N Negative Urine White Blood Cell 1+(6-10/hpf) Abnormal Absent Urine Red Blood Cell 2+(6-10/hpf) Abnormal Absent Urine Bacteria Absent N Absent Urine Squamous Epithelial Cell Present Abnormal Absent BMP Basic Metabolic 10/11/[address] [facility] Sodium 142 mmol/L N 133-[address] [place] [address] [phone] Potassium 4.6 mmol/L N 3.7-5.6 Chloride 107 mmol/L N 101-111 Co2 Carbon Dioxide 31 mmol/L N 22-32 Anion Gap 4 mmol/L N 2-11 Glucose 91 mg/dL N 70-100 Blood Urea Nitrogen 25 mg/dL High 6-24 Creatinine 1.50 mg/dL High 0.67-1.17 BUN/Creatinine Ratio 16.7 N 8-20 Calcium 9.4 mg/dL N 8.6-10.3 Egfr Non- 45.4 N >60 Egfr 58.4 N >60 36 Laboratory test 09/20/[address] [facility] PSA Diagnostic 0.212 N 0 -4.000 [address] ng/[place] [address] [phone] CBC Auto Diff 09/20/[address] [facility] White Blood 8.1 N 4.8- 10.[address] Count 10^3/[place] [address] [phone] Red Blood Count 4.53 10^6/uL N 4.0-5.4 Hemoglobin 13.7 g/dL Low 14.0-18.0 Hematocrit 40 % Low 42-52 Mean Corpuscular Volume 88 fL N 80-94 Mean Corpuscular Hemoglobin 30 pg N 27-31 Mean Corpuscular HGB Conc 34 g/dL N 31-36 Red Cell Distribution Width 13 % N 10.5-15 Platelet Count 189 10^3/uL N 150-450 Mean Platelet Volume 8 um3 N 7.4-10.4 Abs Neutrophils 5.8 10^3/uL N 1.5-7.7 Abs Lymphocytes 1.5 10^3/uL N 1.0-4.8 Abs Monocytes 0.5 10^3/uL N 0-0.8 Abs Eosinophils 0.2 10^3/uL N 0-0.6 Abs Basophils 0.1 10^3/uL N 0-0.2 Abs Nucleated RBC 0 10^3/uL N Granulocyte % 72.3 % N 38-83 Lymphocyte % 19.2 % Low 25-47 Monocyte % 5.6 % N 1-9 Eosinophil % 2.0 % N 0-6 Basophil % 0.9 % N 0-2 Nucleated Red Blood Cells % 0 N Urinalysis Profile 09/20/[address] [facility] Urine Color Ghazala N [address] [place] [address] [phone] Urine Appearance Clear N Urine Specific Cashion 1.020 N 1.010-1.030 Urine pH 6.0 N 5-9 Urine Urobilinogen Positive Abnormal Negative Urine Ketones Negative N Negative Urine Protein Negative N Negative Urine Leukocytes Negative N Negative Urine Blood Negative N Negative * * Abnormal Negative 38 Urine Nitrite Positive Abnormal Negative Urine Bilirubin Negative N Negative Urine Glucose Negative N Negative Urine White Blood Cell 1+(<3/hpf) Abnormal Absent Urine Red Blood Cell 3+(>10/hpf) Abnormal Absent Urine Bacteria Absent N Absent Urine Culture And 09/20/[address] [facility] Urine Culture (SEE NOTE ) [address] [place] [address] [phone] Comp Metabolic 08/29/[address] [facility] Sodium 140 mmol/L N 133- [address] [place] [address] [phone] Potassium 4.6 mmol/L N 3.7-5.6 Chloride 105 mmol/L N 101-111 Co2 Carbon Dioxide 30 mmol/L N 22-32 Anion Gap 5 mmol/L N 2-11 Glucose 85 mg/dL N 70-100 Blood Urea Nitrogen 25 mg/dL High 6-24 Creatinine 1.44 mg/dL High 0.67-1.17 BUN/Creatinine Ratio 17.4 N 8-20 Calcium 9.1 mg/dL N 8.6-10.3 Total Protein 6.4 g/dL N 6.4-8.9 Albumin 4.1 g/dL N 3.2-5.2 Globulin 2.3 g/dL N 2-4 Albumin/Globulin Ratio 1.8 N 1-3 Total Bilirubin 0.90 mg/dL N 0.2-1.0 Alkaline Phosphatase 39 U/L N 34-104 Alt 4 U/L Low 7-52 Ast 21 U/L N 13-39 Egfr Non- 47.6 N >60 Egfr 61.2 N >60 40 Ua W/Microscopic 01/04/[address] [facility] Urine Color Yellow [address] [place] [address] [phone] Urine Appearance Clear Urine Specific [place]ashion 1.025 1.010-1.030 Urine Esterase Negative Negative Urine Nitrate Negative Negative Urine Urobilinogen Negative E.U./dL Negative Urine Protein Trace mg/dL Negative Urine pH 6.5 5-9 Urine Blood 1+ Abnormal Negative Urine Ketones Negative mg/dL Negative Urine Bilirubin Negative Negative Urine Glucose Negative mg/dL Negative Urine WBC None Seen None Seen Urine RBC 2+ (>3-10 /hpf) None Seen Urine Mucus Present /lpf Absent Urine Epithelial Cells 1+ Squamous /hpf None Seen Bacteria Urine None Seen None Seen Culture Urine 01/04/[address] [facility] Urine Culture (SEE NOTE) [address] [place] [address] [phone] Lipid Profile 01/02/[address] [facility] Triglycerides 319 mg/dL High 40-200 (Trig/Chol/HDL [address] [place] [address] [phone] Cholesterol 188 mg/dL Less than 200 HDL Cholesterol 34 mg/dL Low 40-60 42 Cholesterol/HDL Ratio 5.5 Average High 1-4.44 LDL Cholesterol 90.2 Less Than 100 43 Basic Metabolic Panel 08/24/[address] [facility] Sodium 141 mmol/L 133-[address] [place] [address] [phone] Potassium 5.3 mmol/L High 3.5-5.0 Chloride 107 mmol/L 101-111 Co2 Carbon Dioxide 30.0 mmol/L 22-32 Anion Gap 4.0 mmol/L 2-11 Glucose 85 mg/dL 70-100 Blood Urea Nitrogen 22 mg/dL 6-24 Creatinine 1.50 mg/dL High 0.50-1.40 BUN/Creatinine Ratio 14.7 8-20 Calcium 9.6 mg/dL 8.1-9.9 Egfr Non- 45.5 >60 Egfr 58.5 >60 44 Laboratory test 02/21/[address] [facility] Vitamin B12 619 pg/mL 180-914 finding [address] [place] [address] [phone] TSH (Thyroid Stimulating Horm) 1.77 MIU/ML 0.34-5.60 Urinalysis W/Microscopic 09/22/[address] [facility] Ua Color GHAZALA Yellow [address] [place] [address] [phone] Appearance-Urine CLEAR Clear Specific Cashion-Ur 1.018 1.010-1.030 Esterase-Urine TRACE Abnormal Negative Nitrite NEGATIVE Negative [id number] NEGATIVE Negative Protein-Urine NEGATIVE Negative PH-Urine 5.0 5-9 Blood-Urine NEGATIVE Negative Ketones-Urine NEGATIVE Negative Bilirubin-Ur NEGATIVE Negative Glucose-Urine NEGATIVE Negative WBC-Urine 0-2 0-5 RBC-Urine 0-2 0-2 Epith Cells-Ur FEW None Urine Culture 09/22/[address] [facility] M <SEE 45 & [address]ensit[address] NOTE> [place] [address] [phone] CBC Auto Diff 02/23/[address] [facility] White 6.9 CUMM 4.8-[address] Blood 0.8 [place] [address] Count [phone] Red Cell Count 4.87 CUMM 4.6-6.2 Hemoglobin 15.2 g/dL 14.0-18.0 Hematocrit 44 % 42-52 Mean Corpuscular Volume 90 um3 80-94 Mean Corpuscular Hemoglob 31 pg 27-31 Mean Corpuscular HGB Cone 35 g/dL 32-36 Redcell Distribution WDTH 13 % 10.5-15 Platelet Count 202 CUMM 150-450 Mean Platelet Volume 8.1 um3 7.4-10.4 Gran % 68.7 % 38-83 Lymph % 23.8 % Low 25-47 Mononuclear % 5.4 % 1-9 Eosinophil % 1.6 % 0-6 Basophil % 0.5 % 0-2 Abs Lymphs 1.6 1.0-4.8 Abs Mononuclear 0.4 0-0.8 Absolute Neutrophil Count 4.7 1.5-7.7 Abs Eosinophils 0.1 0-0.6 Abs Basophils 0 0-0.2 Basic Metabolic Panel 02/23/[address] [facility] Sodium 143 mmol/L 135-[address] [place] [address] [phone] Potassium 4.7 mmol/L 3.5-5.0 Chloride 107 mmol/L 101-111 Co2 (Carbon Dioxide) 26.0 mmol/L 22-32 Anion Gap 10.0 mmol/L 2-11 46 Glucose 60 mg/dL Low 70-100 BUN 14 mg/dL 6-24 Creatinine 1.2 mg/dL 0.50-1.40 One Over Creatinine 0.83 BUN/Creatinine Ratio 11.7 8-20 Calcium 9.6 mg/dL 8.1-9.9 eGFR Non- 59.0 > 60 eGFR 75.9 > 60 47 Laboratory test 02/23/[address] [facility] PSA,Diagnostic 0.40 0- 4 [address] NG/[place] [address] [phone] CBC Auto Diff 12/01/[address] [facility] White Blood Count 4.6 CUMM Low 4.8-10. [address] [place] [address] [phone] Red Cell Count 4.61 CUMM 4.6-6.2 Hemoglobin 14.3 g/dL 14.0-18.0 Hematocrit 42 % 42-52 Mean Corpuscular Volume 90 um3 80-94 Mean Corpuscular Hemoglob 31 pg 27-31 Mean Corpuscular HGB Cone 34 g/dL 32-36 Redcell Distribution WDTH 12 % 10.5-15 Platelet Count 183 CUMM 150-450 Mean Platelet Volume 8.2 um3 7.4-10.4 Gran % 67.4 % 38-83 Lymph % 23.6 % Low 25-47 Mononuclear % 7.1 % 1-9 Eosinophil % 1.4 % 0-6 Basophil % 0.5 % 0-2 Abs Lymphs 1.1 1.0-4.8 Abs Mononuclear 0.3 0-0.8 Absolute Neutrophil Count 3.1 1.5-7.7 Abs Eosinophils 0.1 0-0.6 Abs Basophils 0 0-0.2 Comp Metabolic Panel 12/01/[address] [facility] Sodium 143 mmol/L 135-[address] [place] [address] [phone] Potassium 4.9 mmol/L 3.5-5.0 Chloride 108 mmol/L 101-111 Co2 (Carbon Dioxide) 30.0 mmol/L 22-32 Anion Gap 5.0 mmol/L 2-11 50 Glucose 85 mg/dL 70-100 BUN 17 mg/dL 6-24 Creatinine 1.30 mg/dL 0.50-1.40 One Over Creatinine 0.70 BUN/Creatinine Ratio 13.1 8-20 Calcium 9.3 mg/dL 8.1-9.9 Total Protein 6.3 GM/DL 6.2-8.1 Albumin 3.9 GM/DL 3.2-5.2 Globulin 2.4 GM/DL 2-4 Albumin/Globulin Ratio 1.6 1-3 Bilirubin Total 1.1 mg/dL 0.4-1.5 51 Alkaline Phosphatase 24 U/L Low 39-117 Alt (SGPT) 18 U/L 17-63 Ast (Sgot) 21 U/L 12-42 eGFR Non- 54.0 > 60 eGFR 69.4 > 60 52 Laboratory test 12/01/[address] [facility] PTT (Aptt) 30.5 25.15- 38.53 finding [address] [place], [place] [id number] [phone] Protime 12/01/[address] [facility] Inr 1.01 0.82-1.17 53 [address] [place], [place] [address] [phone] Protime 11.9 SEC 10.2-14.8 54 Lipid Profile 12/01/[address] [facility] Triglyceride 188 mg/dL 40 -200 (Trig/Chol/HDL) [address] [place], [place] [address] [phone] Cholesterol 206 mg/dL High Less Than 200 55 High Density Lipoprotein 35 mg/dL Low 40-60 56 Cholesterol/HDL Ratio 5.89 AVERAGE High 1-4.97 Low Density Lipoprotein 133 mg/dL High Less Than 100 57 Lipid Profile 11/27/[address] [facility] Triglyceride 126 mg/dL 40 -200 (Trig/Chol/HDL) [address] [place] [address] [phone] Cholesterol 193 mg/dL Less Than 200 58 High Density Lipoprotein 32 mg/dL Low 40-60 59 Cholesterol/HDL Ratio 6.03 AVERAGE High 1-4.97 Low Density Lipoprotein 136 mg/dL High Less Than 100 60 Laboratory test 11/27/[address] [facility] PSA Screening 0.50 NG/ML 0-4 61 finding [address] [place] [address] [phone] Basic Metabolic 04/29/[address] [facility] Sodium 140 mmol/L 135- [address] [place] [address] [phone] Potassium 4.9 mmol/L 3.5-5.0 Chloride 102 mmol/L 101-111 Co2 (Carbon Dioxide) 31.0 mmol/L 22-32 Anion Gap 7.0 mmol/L 2-11 62 Glucose 81 mg/dL 70-100 63 BUN 13 mg/dL 6-24 Creatinine 1.30 mg/dL 0.50-1.40 One Over Creatinine 0.70 BUN/Creatinine Ratio 10.0 8-20 Calcium 9.8 mg/dL 8.1-9.9 64 eGFR Non- 57.5 > 60 eGFR 69.6 > 60 65 CBC With 11/25/[address] [facility] White Blood 6.1 CUMM 4.8-10.[address] [place] [address] [phone] Red Cell Count 5.06 CUMM 4.6-6.2 Hemoglobin 15.6 g/dL 14.0-18.0 Hematocrit 46 % 42-52 Mean Corpuscular Volume 90 um3 80-94 Mean Corpuscular Hemoglob 31 pg 27-31 Mean Corpuscular HGB Cone 34 g/dL 32-36 Redcell Distribution WDTH 13 % 10.5-15 Platelet Count 202 CUMM 150-450 Mean Platelet Volume 7.6 um3 7.4-10.4 Gran % 72.9 % 38-83 Lymph % 18.8 % Low 25-47 Mononuclear % 6.7 % 1-9 Eosinophil % 1.2 % 0-6 Basophil % 0.4 % 0-2 Abs Lymphs 1.1 1.0-4.8 Abs Mononuclear 0.4 0-0.8 Absolute Neutrophil Count 4.4 1.5-7.7 Abs Eosinophils 0.1 0-0.6 Abs Basophils 0 0-0.2 66 Comp Metabolic Panel 11/25/[address] [facility] Sodium 141 mmol/L 135-[address] [place] [address] [phone] Potassium 5.3 mmol/L High 3.5-5.0 Chloride 105 mmol/L 101-111 Co2 (Carbon Dioxide) 31.0 mmol/L 22-32 Anion Gap 5.0 mmol/L 2-11 67 Glucose 97 mg/dL 70-100 68 BUN 14 mg/dL 6-24 Creatinine 1.30 mg/dL 0.50-1.40 One Over Creatinine 0.70 BUN/Creatinine Ratio 10.8 8-20 Calcium 9.8 mg/dL 8.1-9.9 69 Total Protein 7.0 GM/DL 6.2-8.1 Albumin 4.2 GM/DL 3.2-5.2 Globulin 2.8 GM/DL 2-4 Albumin/Globulin Ratio 1.5 1-3 Bilirubin Total 1.4 mg/dL 0.4-1.5 70 Alkaline Phosphatase 37 U/L Low 39-117 Alt (SGPT) 22 U/L 17-63 Ast (Sgot) 26 U/L 12-42 eGFR Non- 57.7 > 60 eGFR 69.8 > 60 71 Lipid Profile 11/25/[address] [facility] Triglyceride 147 mg/dL 40 -200 (Trig/Chol/HDL) [address] [place] [address] [phone] Cholesterol 206 mg/dL High Less Than 200 72 High Density Lipoprotein 33 mg/dL Low 40-60 73 Cholesterol/HDL Ratio 6.24 AVERAGE High 1-4.97 Low Density Lipoprotein 144 mg/dL High Less Than 100 74 Laboratory test 11/25/[address] [facility] TSH 1.68 MIU/ML 0.34- 5.60 finding [address] [place] [address] [phone] PSA,Diagnostic 0.47 NG/ML 0-4 75 Comp Metabolic Panel 11/22/[address] [facility] Sodium 138 mmol/L 135-145 76 [address] [place] [address] [phone] Potassium 4.6 mmol/L 3.5-5.0 Chloride 108 mmol/L 101-111 Co2 (Carbon Dioxide) 31.0 mmol/L 22-32 Anion Gap -1.0 mmol/L Low 2-11 77 Glucose 83 mg/dL 70-105 BUN 17 mg/dL 6-24 Creatinine 1.4 mg/dL 0.5-1.4 One Over Creatinine 0.71 BUN/Creatinine Ratio 12.1 8-20 Calcium 8.7 mg/dL 8.1-9.9 78 Total Protein 6.8 GM/DL 6.2-8.1 Albumin 4.2 GM/DL 3.2-5.2 Globulin 2.6 GM/DL 2-4 Albumin/Globulin Ratio 1.6 1-3 Bilirubin Total 1.6 mg/dL High 0.4-1.5 Alkaline Phosphatase 46 U/L 39-117 Alt (SGPT) 24 U/L 17-63 Ast (Sgot) 25 U/L 12-42 CBC With 11/22/[address] [facility] White Blood 8.7 CUMM 4.8-10.8 Electronic Diff [address] [place] [address] [phone] Red Cell Count 4.95 CUMM 4.6-6.2 Hemoglobin 15.2 g/dL 14.0-18.0 Hematocrit 43 % 42-52 Mean Corpuscular Volume 88 um3 80-94 Mean Corpuscular Hemoglob 31 pg 27-31 Mean Corpuscular HGB Cone 35 g/dL 32-36 Redcell Distribution WDTH 12 % 10.5-15 Platelet Count 202 CUMM 150-450 Mean Platelet Volume 7.6 um3 7.4-10.4 Gran % 75.6 % 38-83 Lymph % 16.7 % Low 20-45 Mononuclear % 6.1 % 1-9 Eosinophil % 1.2 % 0-6 Basophil % 0.4 % 0-2 Abs Lymphs 1.5 1.0-4.8 Abs Mononuclear 0.5 0-0.8 Absolute Neutrophil Count 6.6 1.5-7.7 Abs Eosinophils 0.1 0-0.6 Abs Basophils 0 0-0.2 79 Lipid Profile 11/22/[address] [facility] Triglyceride 190 mg/dL 40 -200 (Trig/Chol/HDL) [address] [place] [address] [phone] Cholesterol 194 mg/dL Less Than 200 80 High Density Lipoprotein 33 mg/dL Low 40-60 81 Cholesterol/HDL Ratio 5.88 AVERAGE High 1-4.97 Low Density Lipoprotein 123 mg/dL High Less Than 100 82 Laboratory test 11/22/[address] [facility] TSH 1.71 MIU/ML 0.34- 5.[address] [place] [address] [phone] PSA Screening 0.60 NG/ML 0-4 83 CBC W/ Electronic 11/08/[address] [facility] White Blood 6.4 CUMM 4.8-10.8 [address] [place] [address] [phone] Abs Basophils 0 0-0.2 Abs Eosinophils 0.1 0-0.6 Absolute Neutrophil Count 4.2 1.5-7.7 Abs Lymphs 1.4 1.0-4.8 Abs Mononuclear 0.6 0-0.8 Basophil % 0.4 % 0-2 Hematocrit 45 % 42-52 Hemoglobin 15.8 g/dL 14.0-18.0 Eosinophil % 2.2 % 0-6 Gran % 65.8 % 38-83 Lymph % 22.4 % 20-45 Mean Corpuscular HGB Cone 35 g/dL 32-36 Mean Corpuscular Hemoglob 31 pg 27-31 Mean Corpuscular Volume 89 um3 80-94 Mean Platelet Volume 8.2 um3 7.4-10.4 Mononuclear % 9.2 % High 1-9 Platelet Count 235 CUMM 150-450 Red Cell Count 5.11 CUMM 4.6-6.2 Redcell Distribution WDTH 12 % 10.5-15 Comp Metabolic Panel 11/08/[address] [facility] One Over Creatinine 0.[address] [place], [place] [id number] [phone] Anion Gap 6.0 mmol/L 2-11 85 Albumin/Globulin Ratio 1.8 1-3 Albumin 4.2 GM/DL 3.2-5.2 Alkaline Phosphatase 43 U/L 39-117 Alt (SGPT) 22 U/L 17-63 Ast (Sgot) 25 U/L 12-42 BUN 14 mg/dL 6-24 Calcium 9.2 mg/dL 8.7-10.2 Chloride 107 mmol/L 101-111 Co2 (Carbon Dioxide) 31.0 mmol/L 22-32 Globulin 2.3 GM/DL 2-4 Glucose 92 mg/dL 70-105 Potassium 5.1 mmol/L High 3.5-5.0 Sodium 144 mmol/L 135-145 Bilirubin Total 1.0 mg/dL 0.4-1.5 Total Protein 6.5 GM/DL 6.2-8.1 BUN/Creatinine Ratio 10.0 8-20 Creatinine 1.4 mg/dL 0.5-1.4 Lipid Profile 11/08/[address] [facility] Cholesterol/HDL 6.87 High 1-4.97 (Trig/Chol/HDL) [address] [place] [address] [phone] Cholesterol 206 mg/dL High Less Than 200 86 Triglyceride 166 mg/dL 40-200 High Density Lipoprotein 30 mg/dL Low 40-60 87 Low Density Lipoprotein 143 mg/dL High Less Than 100 88 Laboratory test 11/08/[address] [facility] PSA Screening 0.80 NG/ML 0.01-4.0 [address] [place] [address] [phone] TSH 1.23 MIU/ML 0.34-5.60 1 Because ethnic data is not always readily available, this report includes an eGFR for both -Americans and non- Americans. The National Kidney Disease Education Program (NKDEP) does not endorse the use of the MDRD equation for patients that are not between the ages of 18 and 70, are , have extremes of body size, muscle mass, or nutritional status, or are non- or non-. According to the National Kidney Foundation, irrespective of diagnosis, the stage of the disease is based on the level of kidney function: Stage Description GFR(mL/min/1.73 m(2)) 1 Kidney damage with normal or decreased GFR 90 2 Kidney damage with mild decrease in GFR 60-89 3 Moderate decrease in GFR 30-59 4 Severe decrease in GFR 15-29 5 Kidney failure <15 (or dialysis) 2 Desirable: <150 Borderline High: 150-199 High: 200-499 Very High: >500 3 Desirable: <200 Borderline High: 200-239 High: >239 4 Low: <40 Desirable: 40-60 High: >60 5 Desirable: <100 Near Optimal: 100-129 Borderline High: 130-159 High: 160-189 Very High: >189 6 SEE RESULT BELOW Name: DUTCH CHAVIRA : [address]: Daphne Perez MD Acct: [id number] Unit: [id number] AGE: 83 Location: [facility] Re04/20/18 SEX: M Status: REG REF SPEC: [id number] TYRONE: 04/20/18-[address]: Daphne Perez MD REQ: [id number] RECD: 04/20/18 STATUS: COMP _ SOURCE: URINE SPDESC: ORDERED: Urine Culture Urine Source: Clean Catch Procedure Result Reported Site Urine Culture Final 04/21/18- 1612 ML No growth of clinically significant organisms * - [facility] . END OF REPORT DEPARTMENT OF PATHOLOGY, [address] [place] [address] Vernon Patten M.D. Director [place]QUITA # [id number] SEE RESULT BELOW Name: DUTCH CHAVIRA : [address]: Simon Florez MD Acct: [id number] Unit: [id number] AGE: 82 Location: [facility] Re05/19/17 SEX: M Status: REG REF SPEC: [id number] TYRONE: 05/19/17 [facility] DR: Simon Florez MD REQ: [id number] RECD: 05/19/17 STATUS: AILYN KAPLAN DR: Jose J Pollock III, MD _ SOURCE: URINE [facility]: ORDERED: Urine Culture Procedure Result Reported Site Urine Culture Final 05/20/17- 1701 ML No Growth (<1,000 CFU/mL) * ML - MAIN LAB ([facility]) . END OF REPORT * ML=Testing performed at Main Lab DEPARTMENT OF PATHOLOGY, [address] [place] [address] Vernon Patten M.D. Director [facility] # [id number] Normal Range 180 to 914 Indeterminate Range 145 to 180 Deficient Range <145 9 FASTING 10 HOUR 10 FASTING 10 HOUR 11 Desirable: <150 Borderline High: 150-199 High: 200-499 Very High: >500 12 Desirable: <200 Borderline High: 200-239 High: >239 13 Low: <40 Desirable: 40-60 High: >60 14 Desirable: <100 Near Optimal: 100-129 Borderline High: 130-159 High: 160-189 Very High: >189 15 Because ethnic data is not always readily available, this report includes an eGFR for both -Americans and non- Americans. The National Kidney Disease Education Program (NKDEP) does not endorse the use of the MDRD equation for patients that are not between the ages of 18 and 70, are , have extremes of body size, muscle mass, or nutritional status, or are non- or non-. According to the National Kidney Foundation, irrespective of diagnosis, the stage of the disease is based on the level of kidney function: Stage Description GFR(mL/min/1.73 m(2)) 1 Kidney damage with normal or decreased GFR 90 2 Kidney damage with mild decrease in GFR 60-89 3 Moderate decrease in GFR 30-59 4 Severe decrease in GFR 15-29 5 Kidney failure <15 (or dialysis) 16 Normal Range 180 to 914 Indeterminate Range 145 to 180 Deficient Range <145 17 FASTING 18 FASTING 19 Desirable <150 Borderline high 150-199 High 200-499 Very High >500 20 Desirable <200 Borderline high 200-239 High >239 21 Low <40 Desirable: 40-60 High: >60 22 Desirable: <100 mg/dL Near Optimal: 100-129 mg/dL Borderline High: 130-159 mg/dL High: 160-189 mg/dL Very High: >189 mg/dL 23 Because ethnic data is not always readily available, this report includes an eGFR for both -Americans and non- Americans. The National Kidney Disease Education Program (NKDEP) does not endorse the use of the MDRD equation for patients that are not between the ages of 18 and 70, are , have extremes of body size, muscle mass, or nutritional status, or are non- or non-. According to the National Kidney Foundation, irrespective of diagnosis, the stage of the disease is based on the level of kidney function: Stage Description GFR(mL/min/1.73 m(2)) 1 Kidney damage with normal or decreased GFR 90 2 Kidney damage with mild decrease in GFR 60-89 3 Moderate decrease in GFR 30-59 4 Severe decrease in GFR 15-29 5 Kidney failure <15 (or dialysis) 24 Desirable <150 Borderline high 150-199 High 200-499 Very High >500 25 Desirable <200 Borderline high 200-239 High >239 26 Low <40 Desirable: 40-60 High: >60 27 Desirable: <100 mg/dL Near Optimal: 100-129 mg/dL Borderline High: 130-159 mg/dL High: 160-189 mg/dL Very High: >189 mg/dL 28 Because ethnic data is not always readily available, this report includes an eGFR for both -Americans and non- Americans. The National Kidney Disease Education Program (NKDEP) does not endorse the use of the MDRD equation for patients that are not between the ages of 18 and 70, are , have extremes of body size, muscle mass, or nutritional status, or are non- or non-. According to the National Kidney Foundation, irrespective of diagnosis, the stage of the disease is based on the level of kidney function: Stage Description GFR(mL/min/1.73 m(2)) 1 Kidney damage with normal or decreased GFR 90 2 Kidney damage with mild decrease in GFR 60-89 3 Moderate decrease in GFR 30-59 4 Severe decrease in GFR 15-29 5 Kidney failure <15 (or dialysis) 29 Desirable <150 Borderline high 150-199 High 200-499 Very High >500 30 Desirable <200 Borderline high 200-239 High >239 31 Low <40 Desirable: 40-60 High: >60 32 Desirable <100 Near Optimal 100-129 Borderline high 130-159 High 160-189 Very High >189 33 Because ethnic data is not always readily available, this report includes an eGFR for both -Americans and non- Americans. The National Kidney Disease Education Program (NKDEP) does not endorse the use of the MDRD equation for patients that are not between the ages of 18 and 70, are , have extremes of body size, muscle mass, or nutritional status, or are non- or non-. According to the National Kidney Foundation, irrespective of diagnosis, the stage of the disease is based on the level of kidney function: Stage Description GFR(mL/min/1.73 m(2)) 1 Kidney damage with normal or decreased GFR 90 2 Kidney damage with mild decrease in GFR 60-89 3 Moderate decrease in GFR 30-59 4 Severe decrease in GFR 15-29 5 Kidney failure <15 (or dialysis) 34 RUN DATE: 10/13/[address] [facility] LAB LIVE PAGE 1 RUN TIME: [address] [place], [place] [address] Specimen Inquiry Name: DUTCH CHAVIRA : [address]: Carmen Campos MD Acct: [id number] Unit: [id number] AGE: 78 Location: [facility] Re10/11/13 SEX: M Status: REG REF SPEC: [id number] TYRONE: 10/11/13 [facility] DR: Carmen Campos MD REQ: [id number] RECD: 10/11/13 STATUS: AILYN KAPLAN DR: Jose J Pollock III, MD _ SOURCE: URINE SPDESC: ORDERED: Urine Culture QUERIES: Urine Source: Random Procedure Result Verified Site Urine Culture Final 10/13/13- 1124 ML Organism 1 NORMAL BOOM Canadensis Count 1-10,000 (Few) CFU/ML END OF REPORT * ML=Testing performed at Main Lab DEPARTMENT OF PATHOLOGY, [address] [place] [address] Vernon Patten M.D. Director [facility] # [id number] 35 *Ascorbic acid is present which may interfere with detection of blood. 36 Because ethnic data is not always readily available, this report includes an eGFR for both -Americans and non- Americans. The National Kidney Disease Education Program (NKDEP) does not endorse the use of the MDRD equation for patients that are not between the ages of 18 and 70, are , have extremes of body size, muscle mass, or nutritional status, or are non- or non-. According to the National Kidney Foundation, irrespective of diagnosis, the stage of the disease is based on the level of kidney function: Stage Description GFR(mL/min/1.73 m(2)) 1 Kidney damage with normal or decreased GFR 90 2 Kidney damage with mild decrease in GFR 60-89 3 Moderate decrease in GFR 30-59 4 Severe decrease in GFR 15-29 5 Kidney failure <15 (or dialysis) 37 Serum levels of PSA measured using the Denice Gela DXI Hybritech immunoassay should not be interpreted as absolute evidence of the presence or absence of disease. The PSA value should be used in conjunction with other pertinent clinical diagnostic procedures. A PSA value in the range of 0.1 to 0.6 ng/ml is indeterminate if being used as an indicator of recurrent or residual disease. The values obtained with different assay methods or kits cannot be used interchangeably. 38 *Ascorbic acid is present which may interfere with detection of blood. 39 RUN DATE: 09/22/[address] [facility] LAB LIVE PAGE 1 RUN TIME: [address] [place] [address] Specimen Inquiry Name: DUTCH CHAVIRA : [address]: Jose J Pollock III, MD Acct: [id number] Unit: [id number] AGE: 78 Location: [facility] Re09/20/13 SEX: M Status: REG REF SPEC: [id number] TYRONE: 09/20/13-1626 [facility] DR: Jose J Pollock III, MD REQ: [id number] RECD: 09/20/13 STATUS: COMP _ SOURCE: URINE SPDESC: ORDERED: Urine Culture QUERIES: Medent Number [id number] Procedure Result Verified Site Urine Culture Final 09/22/13- 0855 ML No Growth Day 2 (<1,000 CFU/mL) END OF REPORT * ML=Testing performed at Main Lab DEPARTMENT OF PATHOLOGY, [facility] [address] [place], [place] [address] Vernon Patten M.D. Director [facility] # [id number] 40 Because ethnic data is not always readily available, this report includes an eGFR for both -Americans and non- Americans. The National Kidney Disease Education Program (NKDEP) does not endorse the use of the MDRD equation for patients that are not between the ages of 18 and 70, are , have extremes of body size, muscle mass, or nutritional status, or are non- or non-. According to the National Kidney Foundation, irrespective of diagnosis, the stage of the disease is based on the level of kidney function: Stage Description GFR(mL/min/1.73 m(2)) 1 Kidney damage with normal or decreased GFR 90 2 Kidney damage with mild decrease in GFR 60-89 3 Moderate decrease in GFR 30-59 4 Severe decrease in GFR 15-29 5 Kidney failure <15 (or dialysis) 41 RUN DATE: 01/06/[address] [facility] LAB LIVE PAGE 1 RUN TIME: 3359 [facility] [place], [place] [address] Specimen Inquiry Name: DUTCH CHAVIRA : [address]: Jose J Pollock III, MD Acct: [id number] Unit: [id number] AGE: 77 Location: [facility] Re01/04/13 SEX: M Status: REG REF SPEC: [id number] TYRONE: 01/04/[address]: Jose J Pollock III, MD REQ: [id number] RECD: 01/04/13 STATUS: COMP _ SOURCE: URINE SPDESC: ORDERED: Urine Culture QUERIES: Urine Source: Clean Catch Procedure Result Verified Site Urine Culture Final 01/06/13- 1046 ML No Growth Day 2 (<1,000 CFU/mL) END OF REPORT * ML=Testing performed at Main Lab DEPARTMENT OF PATHOLOGY, [address] [place] [address] Vernon Patten M.D. Director [facility] Permit #[id number] 42 HDL Interpretation: Undesirable: High Risk: Less than 40 mg/dL Desirable: Low Risk: Greater than 60 mg/dL 43 LDL Interpretation: Low Risk Optimal Level: LDL Less than 100 mg/dL Near or Above Optimal: LDL 100-129 mg/dL Borderline High Risk: LDL 130-159 mg/dL High Risk: LDL 160-189 mg/dL Very High Risk: LDL Greater than 189 mg/dL 44 Because ethnic data is not always readily available, this report includes an eGFR for both -Americans and non- Americans. The National Kidney Disease Education Program (NKDEP) does not endorse the use of the MDRD equation for patients that are not between the ages of 18 and 70, are , have extremes of body size, muscle mass, or nutritional status, or are non- or non-. According to the National Kidney Foundation, irrespective of diagnosis, the stage of the disease is based on the level of kidney function: Stage Description GFR(mL/min/1.73 m(2)) 1 Kidney damage with normal or decreased GFR 90 2 Kidney damage with mild decrease in GFR 60-89 3 Moderate decrease in GFR 30-59 4 Severe decrease in GFR 15-29 5 Kidney failure <15 (or dialysis) 45 RUN DATE: 09/24/11 [facility] NMI LIVE PAGE 1 RUN TIME: 905 Specimen Inquiry RUN USER: INTERFACE Name: DUTCH CHAVIRA Status: REG REF Re09/22/11 Age/Sex: 76/M Unit#: [id number] Location: [facility] : 37 SPEC #: [id number] TYRONE: 09/22/11-1350 STATUS: COMP REQ #: [id number] RECD: 09/22/11-16[address] [facility] DR[facility] SOURCE: URINE ENTR: 09/22/11-[address]: SPDESDarron: ORDERED: URINE C S QUERIES: MEDENT REQUISITION # [id number] ACT WKST: UR 09/24/11 #1 Procedure Result Verified Site > URINE CULTURE SENSITIVI Final 09/24/11- 0906 ML FINAL: NO GROWTH DAY 2 (<1,000 CFU/mL) ML - [facility] State Permit #[id number] [address] [place] [address] DEPARTMENT OF PATHOLOGY, [address] [place] [address] [facility] Permit #[id number] Vernon Patten M.D. Director Valerie Lackey M.D. Meter Attendant 46 Anion gap measurement may be of limited value in the presence of any alkalosis, especially in a combined acid base disorder. . 47 Because ethnic data is not always readily available, this report includes an eGFR for both -Americans and non- Americans. The National Kidney Disease Education Program (NKDEP) does not endorse the use of the MDRD equation for patients that are not between the ages of 18 and 70, are , have extremes of body size, muscle mass, or nutritional status, or are non- or non-. According to the National Kidney Foundation, irrespective of diagnosis, the stage of the disease is based on the level of kidney function: Stage Description GFR(mL/min/1.73 m(2)) 1 Kidney damage with normal or decreased GFR 90 2 Kidney damage with mild decrease in GFR 60-89 3 Moderate decrease in GFR 30-59 4 Severe decrease in GFR 15-29 5 Kidney failure <15 (or dialysis) 48 * SERUM LEVELS OF PSA MEASURED USING THE DENICE [employer] ACCESS HYBRITECH IMMUNOASSAY SHOULD NOT BE INTERPRETED ABSOLUTE EVIDENCE OF THE PRESENCE OR ABSENCE OF DISEASE. THE PSA VALUE SHOULD BE USED IN CONJUNCTION WITH OTHER PERTINENT CLINICAL DIAGNOSTIC PROCEDURES. A PSA value in the range of 0.1 to 0.6 ng/ml is indeterminate if being used as an indicator of recurrent or residual disease. . 49 PT REQUESTS THAT RESULTS BE MAILED TO HIS HOUSE. 50 Anion gap measurement may be of limited value in the presence of any alkalosis, especially in a combined acid base disorder. . 51 A metabolite of Naproxen, O-desmethylnaproxen, has been shown to interfere with the [place] method for measuring total bilirubin. Samples from patients who have taken Naproxen have shown spurious elevation in total bilirubin levels. 52 Because ethnic data is not always readily available, this report includes an eGFR for both -Americans and non- Americans. The National Kidney Disease Education Program (NKDEP) does not endorse the use of the MDRD equation for patients that are not between the ages of 18 and 70, are , have extremes of body size, muscle mass, or nutritional status, or are non- or non-. According to the National Kidney Foundation, irrespective of diagnosis, the stage of the disease is based on the level of kidney function: Stage Description GFR(mL/min/1.73 m(2)) 1 Kidney damage with normal or decreased GFR 90 2 Kidney damage with mild decrease in GFR 60-89 3 Moderate decrease in GFR 30-59 4 Severe decrease in GFR 15-29 5 Kidney failure <15 (or dialysis) 53 Recommended INR for Patients on Oral Anticoagulants Prophylaxis 2.0 - 3.0 Treatment of thrombosis 2.0 - 3.0 Prevention of embolism 2.0 - 3.0 Prevention of embolism from prosthetic heart valves 2.5 - 3.5 54 DIAGNOSIS,TREATMENT,AND THERAPY MUST BE BASED ON THE INR VALUE ALONE. 55 CHOLESTEROL INTERPRETATION: Desirable: Less than 200 MG/DL Borderline-High Risk: 200-239 MG/DL High-Risk: 240 MG/DL and over 56 HDL INTERPRETATION: Undesirable: High Risk: Less than 40 MG/DL Desirable: Low Risk: Greater than 60 MG/DL 57 LDL INTERPRETATION: Low Risk Optimal Level: LDL Less than 100 MG/DL Near or Above Optimal: LDL 100-129 MG/DL Borderline High Risk: LDL 130-159 MG/DL High Risk: LDL 160-189 MG/DL Very High Risk: LDL Greater than 189 MG/DL 58 CHOLESTEROL INTERPRETATION: Desirable: Less than 200 MG/DL Borderline-High Risk: 200-239 MG/DL High-Risk: 240 MG/DL and over 59 HDL INTERPRETATION: Undesirable: High Risk: Less than 40 MG/DL Desirable: Low Risk: Greater than 60 MG/DL 60 LDL INTERPRETATION: Low Risk Optimal Level: LDL Less than 100 MG/DL Near or Above Optimal: LDL 100-129 MG/DL Borderline High Risk: LDL 130-159 MG/DL High Risk: LDL 160-189 MG/DL Very High Risk: LDL Greater than 189 MG/DL 61 * SERUM LEVELS OF PSA MEASURED USING THE DENICE [employer] ACCESS HYBRITECH IMMUNOASSAY SHOULD NOT BE INTERPRETED ABSOLUTE EVIDENCE OF THE PRESENCE OR ABSENCE OF DISEASE. THE PSA VALUE SHOULD BE USED IN CONJUNCTION WITH OTHER PERTINENT CLINICAL DIAGNOSTIC PROCEDURES. A PSA value in the range of 0.1 to 0.6 ng/ml is indeterminate if being used as an indicator of recurrent or residual disease. . 62 Anion gap measurement may be of limited value in the presence of any alkalosis, especially in a combined acid base disorder. . 63 Note change in reference range as of 12/14/07. The change was based on recommendations from the [place] [employer]. 64 Please note change in reference range effective 07 . 65 Because ethnic data is not always readily available, this report includes an eGFR for both -Americans and non- Americans. The National Kidney Disease Education Program (NKDEP) does not endorse the use of the MDRD equation for patients that are not between the ages of 18 and 70, are , have extremes of body size, muscle mass, or nutritional status, or are non- or non-. According to the National Kidney Foundation, irrespective of diagnosis, the stage of the disease is based on the level of kidney function: Stage Description GFR(mL/min/1.73 m(2)) 1 Kidney damage with normal or decreased GFR 90 2 Kidney damage with mild decrease in GFR 60-89 3 Moderate decrease in GFR 30-59 4 Severe decrease in GFR 15-29 5 Kidney failure <15 (or dialysis) 66 Lymphopenia % 67 Anion gap measurement may be of limited value in the presence of any alkalosis, especially in a combined acid base disorder. . 68 Note change in reference range as of 12/14/07. The change was based on recommendations from the [place] [employer]. 69 Please note change in reference range effective 07 . 70 A metabolite of Naproxen, O-desmethylnaproxen, has been shown to interfere with the [place] method for measuring total bilirubin. Samples from patients who have taken Naproxen have shown spurious elevation in total bilirubin levels. 71 Because ethnic data is not always readily available, this report includes an eGFR for both -Americans and non- Americans. The National Kidney Disease Education Program (NKDEP) does not endorse the use of the MDRD equation for patients that are not between the ages of 18 and 70, are , have extremes of body size, muscle mass, or nutritional status, or are non- or non-. According to the National Kidney Foundation, irrespective of diagnosis, the stage of the disease is based on the level of kidney function: Stage Description GFR(mL/min/1.73 m(2)) 1 Kidney damage with normal or decreased GFR 90 2 Kidney damage with mild decrease in GFR 60-89 3 Moderate decrease in GFR 30-59 4 Severe decrease in GFR 15-29 5 Kidney failure <15 (or dialysis) 72 CHOLESTEROL INTERPRETATION: Desirable: Less than 200 MG/DL Borderline-High Risk: 200-239 MG/DL High-Risk: 240 MG/DL and over 73 HDL INTERPRETATION: Undesirable: High Risk: Less than 40 MG/DL Desirable: Low Risk: Greater than 60 MG/DL 74 LDL INTERPRETATION: Low Risk Optimal Level: LDL Less than 100 MG/DL Near or Above Optimal: LDL 100-129 MG/DL Borderline High Risk: LDL 130-159 MG/DL High Risk: LDL 160-189 MG/DL Very High Risk: LDL Greater than 189 MG/DL 75 * SERUM LEVELS OF PSA MEASURED USING THE [employer]ero ACCESS HYBRITECH IMMUNOASSAY SHOULD NOT BE INTERPRETED ABSOLUTE EVIDENCE OF THE PRESENCE OR ABSENCE OF DISEASE. THE PSA VALUE SHOULD BE USED IN CONJUNCTION WITH OTHER PERTINENT CLINICAL DIAGNOSTIC PROCEDURES. A PSA value in the range of 0.1 to 0.6 ng/ml is indeterminate if being used as an indicator of recurrent or residual disease. . 76 FASTING 77 Anion gap measurement may be of limited value in the presence of any alkalosis, especially in a combined acid base disorder. . 78 Please note change in reference range effective 07 . 79 Lymphopenia % 80 CHOLESTEROL INTERPRETATION: Desirable: Less than 200 MG/DL Borderline-High Risk: 200-239 MG/DL High-Risk: 240 MG/DL and over 81 HDL INTERPRETATION: Undesirable: High Risk: Less than 40 MG/DL Desirable: Low Risk: Greater than 60 MG/DL 82 LDL INTERPRETATION: Low Risk Optimal Level: LDL Less than 100 MG/DL Near or Above Optimal: LDL 100-129 MG/DL Borderline High Risk: LDL 130-159 MG/DL High Risk: LDL 160-189 MG/DL Very High Risk: LDL Greater than 189 MG/DL 83 * SERUM LEVELS OF PSA MEASURED USING THE ActivityHero ACCESS HYBRITECH IMMUNOASSAY SHOULD NOT BE INTERPRETED ABSOLUTE EVIDENCE OF THE PRESENCE OR ABSENCE OF DISEASE. THE PSA VALUE SHOULD BE USED IN CONJUNCTION WITH OTHER PERTINENT CLINICAL DIAGNOSTIC PROCEDURES. A PSA value in the range of 0.1 to 0.6 ng/ml is indeterminate if being used as an indicator of recurrent or residual disease. . 84 PATIENT MAY HAVE RESULTS PER DOCTOR'S AUTHORIZATION. Questions regarding this report should be directed to your doctor. 85 Anion gap measurement may be of limited value in the presence of any alkalosis, especially in a combined acid base disorder. . 86 Classification: Borderline High . 87 Classification: Low . 88 CALCULATED LDL APPROXIMATES THE VALUE OF A DIRECT LDL MEASUREMENT. Classification: Borderline High . 89 * SERUM LEVELS OF PSA MEASURED USING THE ActivityHero ACCESS HYBRITECH IMMUNOASSAY SHOULD NOT BE INTERPRETED ABSOLUTE EVIDENCE OF THE PRESENCE OR ABSENCE OF DISEASE. THE PSA VALUE SHOULD BE USED IN CONJUNCTION WITH OTHER PERTINENT CLINICAL DIAGNOSTIC PROCEDURES. Procedures Date Code Description Status 12/20/2017 54579 ECHO Transthoracic, Real-Time 2D With Doppler And Completed Color Flow 12/20/2017 62756 ECHO Transthoracic, Real-Time 2D With Doppler And Completed Color Flow 12/01/2017 97540 EKG Tracing & Interpretation Completed 12/23/2016 10176 ECHO Transthoracic, Real-Time 2D With Doppler And Completed Color Flow 12/07/2016 11940 EKG Tracing & Interpretation Completed 03/01/2016 68848 FX Metatarsal Care Completed 12/23/2015 07268 EKG Tracing & Interpretation Completed 11/28/2014 60756 ECHO Transthoracic, Real-Time 2D With Doppler And Completed Color Flow 11/27/2014 61460 Holter Monitor Review (24 hr)dr review & interp only Completed 11/21/2014 84307 EKG Tracing & Interpretation Completed 11/05/2014 [id number] Mammogram Completed 09/19/2014 70055 EKG Tracing & Interpretation Completed 03/13/2014 69813 EKG Tracing & Interpretation Completed 11/06/2013 28532 ECHO Transthoracic, Real-Time 2D With Doppler And Completed Color Flow 10/11/2013 37411 EKG Tracing & Interpretation Completed 03/29/2013 [id number] Diabetic Retinal Eye Exam Completed 03/12/2013 [id number] Diabetic Retinal Eye Exam Completed 02/16/2013 40058 EKG Tracing & Interpretation Completed 02/15/2012 23573 EKG Tracing & Interpretation Completed 02/03/2012 92525 ECHO Transthoracic, Real-Time 2D With Doppler And Completed Color Flow 01/20/2012 [id number] Colonoscopy Completed 02/09/2011 97844 EKG Tracing & Interpretation Completed 02/02/2011 80442 ECHO Transthoracic, Real-Time 2D With Doppler And Completed Color Flow 04/03/2010 54893 ECHO Transthoracic, Real-Time 2D With Doppler And Completed Color Flow 02/10/2010 54025 EKG Tracing & Interpretation Completed 02/02/2010 06212 Treadmill Interp/Report Only Completed 02/02/2010 79011 Stress Test Supervsn W/Out I/R Completed 01/07/2010 38006 EKG Tracing & Interpretation Completed 11/25/2008 27226 EKG Tracing & Interpretation Completed 11/08/2006 06040 EKG Tracing & Interpretation Completed 05/14/2002 [id number] Colonoscopy Completed Encounters Type Date Location Provider Dx Diagnosis Office Visit 05/09/2018 [place]/Mateus Campos, G20 Parkinson's 1:30p Neurologic Serv Lina Medellin disease [facility] G31.84 Mild cognitive impairment, so stated Office Visit 04/13/2018 10:15a Surgical Dutch Taveras, K60.2 Anal fissure, [facility] , FACS unspecified Office Visit 04/11/2018 12:00p [place] Carmen Campos, G20 Parkinson's Neurologic Serv TamiDReginald disease Of [facility] G31.84 Mild cognitive impairment, so stated Office Visit 02/07/2018 [place] Carmen R44.1 Visual 11:00a Neurologic Serv Lina Campos M.D. hallucinations [facility] G31.84 Mild cognitive impairment, so stated G20 Parkinson's disease Office Visit 12/01/2017 [place] Luciano Goldstein I35.1 Nonrheumatic aortic 1:40p Cardiology Lacie Reno (valve) insufficiency I10 Essential (primary) hypertension I71.9 Aortic aneurysm of unspecified site, without rupture Office Visit 11/24/2017 [facility] Internal Jose J Patel R03.0 Elevated 10:00a Suyapa Pollock M.D. blood-pressure [place] reading, w/o diagnosis of htn Office Visit 11/08/2017 [place] Carmen G31.84 Mild cognitive 11:00a Neurologic Serv Lacie Campos impairment, so Of [facility] stated G20 Parkinson's disease R44.1 Visual hallucinations Office Visit 08/23/2017 [place] R44.1 Visual 3:30p Neurologic Serv Lina Campos M.D. hallucinations [facility] G31.84 Mild cognitive impairment, so stated G20 Parkinson's disease Office Visit 05/23/2017 2:20p [facility] Internal Jose J Patel N30.10 Interstitial Suyapa Pollock M.D. cystitis (chronic) [facility] without hematuria Office Visit 05/03/2017 4:00p [place] G20 Parkinson's Neurologic Serv Lacie Campos disease Of [facility] R44.1 Visual hallucinations G31.84 Mild cognitive impairment, so stated Office Visit 05/02/2017 10:40a [facility] Internal Jose J Patel Z00.00 Encntr for Suyapa Pollock M.D. general adult [facility] medical exam w/o abnormal findings G20 Parkinson's disease E78.00 Pure hypercholesterolemia, unspecified N30.10 Interstitial cystitis (chronic) without hematuria G47.33 Obstructive sleep apnea (adult) (pediatric) K21.9 Gastro-esophageal reflux disease without esophagitis R60.0 Localized edema Office Visit 02/08/2017 [place] Carmen Campos, G20 Parkinson's 10:30a Neurologic Serv Of MElina disease [facility] [employer] [facility] R44.1 Visual hallucinations G31.84 Mild cognitive impairment, so stated Office Visit 12/07/2016 3:40p [place] [facility] Qutaybeh S. I10 Leonor Reno M.D. (primary) hypertension E78.4 Other hyperlipidemia I35.0 Nonrheumatic aortic (valve) stenosis I35.1 Nonrheumatic aortic (valve) insufficiency R53.83 Other fatigue Office Visit 12/01/2016 11:30a [facility] Linn Tai Parkinson's Services Of Eyad Medellin disease M48.07 Spinal stenosis, lumbosacral region Office Visit 11/03/2016 Orthopedic Silvestre M93.971 Osteochondropathy, 9:00a Services Of Eyad Parks M.D. unspecified, right AT [place] ankle and foot Office Visit 10/15/2016 Eyad Patel I1Elisa Essential (primary) 9:40a Suyapa Pollock M.D. hypertension [facility] G20 Parkinson's disease E78.00 Pure hypercholesterolemia, unspecified N30.10 Interstitial cystitis (chronic) without hematuria M79.673 Pain in unspecified foot Office Visit 09/14/2016 [facility] Cramen Campos, G20 Parkinson's 10:00a Neurologic Serv Of Lacie disease [facility] R41.89 Oth symptoms and signs w cognitive functions and awareness G47.52 REM sleep behavior disorder R53.1 Weakness Office Visit 12/23/2015 3:40p [place] [facility] Qutaybeh S. I10 Essential Lacie Reno (primary) hypertension G47.33 Obstructive sleep apnea (adult) (pediatric) E78.0 Pure hypercholesterolemia I34.0 Nonrheumatic mitral (valve) insufficiency I36.1 Nonrheumatic tricuspid (valve) insufficiency I35.0 Nonrheumatic aortic (valve) stenosis I35.1 Nonrheumatic aortic (valve) insufficiency Office Visit 12/23/2015 [place] Carmen Campos, G20 Parkinson's 9:45a Neurologic Serv Of Lacie disease [facility] M48.06 Spinal stenosis, lumbar region G47.52 REM sleep behavior disorder Office Visit 09/23/2015 11:20a [facility] Internal Jose J Patel I10 Essential ( primary) Medicine Juan Jose Pollock M.D. hypertension [place] G20 Parkinson's disease N30.10 Interstitial cystitis (chronic) without hematuria G47.33 Obstructive sleep apnea (adult) (pediatric) E78.0 Pure hypercholesterolemia Office Visit 09/02/2015 [place] Carmen Campos, M48.06 Spinal 10:15a Neurologic Serv Of Lacie stenosis, [facility] lumbar region G20 Parkinson's disease G47.52 REM sleep behavior disorder R41.89 Oth symptoms and signs w cognitive functions and awareness Office Visit 02/05/2015 9:45a [place] Neurologic Carmen Campos M48.06 Spinal stenosis, [facility] Lacie lumbar region G20 Parkinson's disease Office Visit 01/21/2015 [place]/Mateus Morales G21.9 Secondary 10:30a Neurologic Serv Of Lacie Campos parkinsonism, [facility] unspecified M48.06 Spinal stenosis, lumbar region Office Visit 12/25/2014 11:00a [place] [facility] Keila Renner, 458.9 Hypotension Unspec PA 424.1 Aortic Valve Disorder 595.1 Cystitis Chronic Interstitial 327.23 Obstructive Sleep Apnea Adult & Pediatric Office Visit 12/03/2014 1:15p [place] [facility] Nurse Visit cc 401.1 Hypertension Benign Office Visit 11/21/2014 3:40p [place] [facility] Qutaybeh SReginald 401.1 Hypertension Of [facility] Sharita Reno M.D. 780.4 Dizziness & Giddiness 458.9 Hypotension Unspec 424.1 Aortic Valve Disorder Office Visit 09/24/2014 [place] Carmen 332.1 Parkinsonism 9:30a Neurologic Serv Of Lacie Campos Secondary [facility] 724.03 Spinal Stenosis, Lumbar Region W/ Neurogenic Claudication Office Visit 09/19/2014 2:00p [facility] Internal Jose J Patel V72.81 Examination Medicine - Dominguez Pollock.D. [facility] Cardiovascular 595.1 Cystitis Chronic Interstitial 401.1 Hypertension Benign 332.1 Parkinsonism Secondary 530.81 Esophageal Reflux Office Visit 09/02/2014 11:20a [facility] Internal Jose J Patel 401.1 Hypertension Benign Lacie [place] 530.81 Esophageal Reflux 332.1 Parkinsonism Secondary V03.82 Streptococcus Pneumoniae Vaccination Spec Other Office 04/19/2014 Mateus Wolf S. 794.31 Electrocardiogram Visit 10:40a Cardiology Lacie Reno (ECG) (EKG) Abnormal 401.1 Hypertension Benign 424.1 Aortic Valve Disorder 424.0 Mitral Valve Disorder Office Visit 04/09/2014 [place]/Mateus Morales 332.1 Parkinsonism 10:00a Neurologic Serv Lnia Campos M.D. Secondary [facility] 780.1 Hallucinations 327.42 REM Sleep Behavior Disorder 729.82 Cramp Of Limb Office Visit 12/25/2013 [place]/Mateus Morales 332.1 Parkinsonism 10:00a Neurologic Serv Lina Campos M.D. Secondary [facility] Office Visit 12/05/2013 [place] [facility] Of Keila Renner, 401.1 Hypertension 11:00a [facility] PA Benign 424.1 Aortic Valve Disorder 327.23 Obstructive Sleep Apnea Adult & Pediatric 424.0 Mitral Valve Disorder 595.1 Cystitis Chronic Interstitial Office Visit 11/01/2013 1:00p [facility] Keila Renner, 332.1 Parkinsonism PA Secondary 458.9 Hypotension Unspec 424.0 Mitral Valve Disorder 327.23 Obstructive Sleep Apnea Adult & Pediatric 781.2 Gait Abnormality Office Visit 10/17/2013 2:00p [facility] Keila Renner 401.1 Hypertension Benign PA 424.0 Mitral Valve Disorder 424.1 Aortic Valve Disorder 595.1 Cystitis Chronic Interstitial 332.1 Parkinsonism Secondary Office Visit 10/11/2013 Mateus Wolf S. 401.1 Hypertension 2:20p Krystal Reno M.D. Benign 424.0 Mitral Valve Disorder 424.1 Aortic Valve Disorder 458.9 Hypotension Unspec Office Visit 09/20/2013 3:00p [facility] Internal Jose J Patel 788.1 Dysuria Suyapa Pollock M.D. [place] Office Visit 08/28/2013 10:00a [place]/Mateus Campos, 332.0 Paralysis Neurologic Serv Of Lacie Melendez [facility] 780.1 Hallucinations 327.42 REM Sleep Behavior Disorder Office Visit 08/27/2013 10:40a [facility] Internal Jose J Patel 401.1 Hypertension Lacie Aguirre 595.1 Cystitis Chronic Interstitial 332.0 Paralysis Agitans Office Visit 04/24/2013 [place] Carmen 332.1 Parkinsonism 11:15a Neurologic Serv Of Lacie Campos Secondary [facility] 368.16 Visual Disturbance Psychophysical 327.42 REM Sleep Behavior Disorder Office Visit 03/06/2013 [place] Carmen 332.1 Parkinsonism 9:30a Neurologic Serv Of Lacie Campos Secondary [facility] 368.2 Diplopia Office Visit 02/16/2013 [place] Luciano Goldstein 401.1 Hypertension 1:40p Cardiology Lacie Reon 327.23 Obstructive Sleep Apnea Adult & Pediatric 424.1 Aortic Valve Disorder 424.0 Mitral Valve Disorder Office Visit 01/10/2013 11:30a [facility] Carmen Campos 781.2 Gait Abnormality Services Of Eyad Medellin 327.42 REM Sleep Behavior Disorder 378.9 Eye Movement Disorder Unspec Office Visit 09/07/2012 1:15p [place] Lily [place] 332.0 Paralysis Services Of Lacie Nunes 327.42 REM Sleep Behavior Disorder 327.23 Obstructive Sleep Apnea Adult & Pediatric Office Visit 08/24/2012 11:00a [facility] Chuy Patel 401.1 Hypertension Suyapa Pollock M.D. [facility] Office Visit 04/27/2012 11:15a [place] Lily [place] 332.0 Paralysis Agitans Services Of Eyad Hebert M.D. 327.42 REM Sleep Behavior Disorder Office Visit 04/03/2012 3:20p [facility] Chuy Patel 332.0 Paralysis Lacie Brumfield 788.1 Dysuria Office Visit 03/20/2012 4:00p [place] Lily [place] 332.0 Paralysis Services Of Lacie Nunes 327.42 REM Sleep Behavior Disorder Office Visit 02/25/2012 10:00a [facility] Chuy Patel 781.2 Gait Abnormality Lacie Brumfield 401.1 Hypertension Benign Office Visit 02/21/2012 9:00a [place] Neurologic Silvestre 333.1 Tremor Essential Services Of Eyad Hebert M.D. & Other Forms 781.2 Gait Abnormality 327.23 Obstructive Sleep Apnea Adult & Pediatric 327.42 REM Sleep Behavior Disorder Office Visit 02/15/2012 2:20p [place] [facility] Shivamtaybmonika S. 424.1 Aortic Valve Lacie Reno Disorder 401.1 Hypertension Benign 424.0 Mitral Valve Disorder Office Visit 12/01/2011 10:00a [facility] Internal Medicine Jose J Pollock, 788.1 Dysuria - Yaritza Medellin 569.42 Pain Anal Or Rectal Office Visit 09/22/2011 1:00p [facility] Internal Jose J Patel 401.1 Hypertension [facility] Medicine - Lacie Pollock 272.0 Hypercholesterolemia Pure 788.1 Dysuria Office Visit 04/05/2011 11:00a DO Not Use Director Of Career Services Jose J Patel 401.1 Hypertension Benign AT Edward Pollock M.D. 781.2 Gait Abnormality Office Visit 02/09/2011 2:20p [place] [facility] Shivamtajoana S. 424.1 Aortic Valve Lacie Reno Disorder 401.1 Hypertension Benign V72.84 Examination Preoperative Unspec 794.31 Electrocardiogram (ECG) (EKG) Abnormal Office Visit 12/01/2010 10:00a DO Not Use Director Of Career Services Johny V72.84 Examination AT Edward Delcid M.D. Preoperative Unspec 401.1 Hypertension Benign 424.1 Aortic Valve Disorder 530.81 Esophageal Reflux Office Visit 09/30/2010 1:40p DO Not Use Director Of Career Services Jose J EReginald 401.1 Hypertension Benign AT Edward Pollock M.D. 272.0 Hypercholesterolemia Pure 780.50 Sleep Disturbance Unspec Office Visit 08/19/2010 10:40a DO Not Use Director Of Career Services Johny 466.0 Bronchitis Acute AT Edward Delcid M.D. Office Visit 04/28/2010 10:40a DO Not Use Director Of Career Services Jose J E. 401.1 Hypertension AT Edward Pollock M.D. Benign 530.81 Esophageal Reflux 272.0 Hypercholesterolemia Pure 780.50 Sleep Disturbance Unspec Office Visit 04/13/2010 9:40a [place] [facility] Qutaybeh S. 786.05 Shortness Of Maghaydah, M.D. Breath 401.1 Hypertension Benign 424.1 Aortic Valve Disorder 424.0 Mitral Valve Disorder Office Visit 02/10/2010 2:20p [place] [facility] Qutajoana S. 786.05 Shortness Lina Reno M.D. Breath 401.1 Hypertension Benign 780.50 Sleep Disturbance Unspec Office Visit 01/07/2010 4:00p DO Not Use Director Of Career Services Johny 786.05 Shortness Of AT Edward Delcid M.D. Breath Office Visit 11/27/2009 9:00a DO Not Use Director Of Career Services Jose J E. 401.1 Hypertension AT Edward Pollock M.D. Benign 780.50 Sleep Disturbance Unspec 300.09 Anxiety States Other 272.0 Hypercholesterolemia Pure 530.81 Esophageal Reflux 600.20 Benign Localized Hyperplasia Prostate W/O Urinary Obstruct Office Visit 10/28/2009 10:00a DO Not Use Director Of Career Services Jose J E. 300.09 Anxiety States AT Edward Pollock M.D. Other Office Visit 04/29/2009 11:00a DO Not Use Director Of Career Services Jose J E. 401.1 Hypertension Benign AT Edward Pollock M.D. 780.50 Sleep Disturbance Unspec Office Visit 04/03/2009 3:30p DO Not Use Director Of Career Services Jose J E. 401.1 Hypertension Benign AT Edward Pollock M.D. Office Visit 03/26/2009 11:30a DO Not Use Director Of Career Services Jose J E. 780.50 Sleep Disturbance AT Edward Pollock M.D. Unspec Office Visit 11/25/2008 9:00a [place] Med Jose J EReginald 477.9 Rhinitis Allergic Assoc AT Lacie Pollock Cause Unspec [facility] 796.2 Blood Pressure Reading Elevated W/O Hypertension 530.81 Esophageal Reflux 300.09 Anxiety States Other Office Visit 08/22/2008 11:30a [place] Med Jose J E. 530.81 Esophageal Reflux Assoc AT Lacie Pollock [facility] V58.32 Encounter For Removal Of Sutures Office Visit 11/22/2007 9:00a [place] Med Assoc Jose J EReginald 477.9 Rhinitis AT Rashad Pollock M.D. Allergic Cause [place] Unspec 530.81 Esophageal Reflux 272.0 Hypercholesterolemia Pure 602.9 Prostate Disorder Unspec V05.8 Single Disease Spec Other Vaccination & Inoculation Office Visit 11/08/2006 9:00a [facility] Jose J Patel 272.2 Hyperlipidemia Mixed Assoc AT Lacie Pollock [facility] 530.81 Esophageal Reflux Plan of Treatment Future Appointment(s):06/19/2018 11:15 am - Dutch Taveras MD, FACS at [facility]08/08/2018 11:00 am - Carmen Campos M.D. at [facility] Neurologic Serv Of [facility]05/18/2018 - Dutch Taveras MD, FACSK60.2 Anal fissure, unspecifiedFollow up:4 weeksRecommendations:Use the ointment 3x/daily.
--- OUTSIDE RECORDS SUMMARY | 2018-05-23 18:53 | XMS REPORT | Continuity of Care Document ---
:1935 External Reference #:[id number] Author Name Aleja Rosario Care Team Providers Name Role Phone Jose J Pollock III, MD Primary Care Physician Unavailable Payers Type Date Identification Numbers Payment Provider Subscriber Policy Number: [id number] Medicare Dutch Chavira PayID: [id number] [address] [place] [address] Policy Number: [id number] [facility] Dutch Chavira Group Number: [id number] [address] PayID: [id number] [place] [address] Advance Directives Type Date Description Status Comment [...] Occasionally consumes alcohol Tobacco Use Start: Unknown Patient is a former End: Unknown smoker Recreational Drug Use Denies Drug Use Tobacco Use Start: Unknown Started at 17, quit at 21. Smoked 5 cigs per day. Smoking Status Reviewed: 05/05/18 Started at 17, quit at 21. Smoked 5 cigs per day. Exercise Type/Frequency Exercises regularly PT 2 days a week and daily exercises Allergies, Adverse Reactions, Alerts Description No Known Drug Allergies Medications Medication Date Status Form Strength Qnty SIG Indications Ordering Provider Nitroglycerin 04/13 Active 30gra apply Dutch 0.2% ms sparingly Mecenas, Lidocaine 2% to rectal MD, FACS area as directed Protonix 11/[address] 20mg 90tab Take One Jose J Reginald s Tablet By Ramona Pollock M.D. Every Day Rollator 12/01 Active Misc 1unit with 4 s thick jesse Capmos M.D. brakes, basket and seat. dx: m48.07 and g20 Sinemet 01/10 Active Tablets 25-100mg 405ta 1 po tid lisa Campos M.D. Miralax Active Packet [id number] 1mon 04/26 dose Unknown /0000 po qday Rapaflo Active [...] 10mg 90tab 1 by Jose J Patel Besylate / s mouth Maris, every day M.D. Advil Active Tablets 200mg 1 tabs 2 Unknown / times a day as needed Hydrocodone-Aceta Active Tablets 10-325mg 1 tab by Unknown minophen / mouth every 6 hours as needed Prelief Active Tablets 340(65-50 Unknown / )mg (CA-P) Pyridium Active Tablets 100mg one by Unknown / mouth three times a day for 3 days Requip 08/02 Hx Tablets 0.5mg 90tab 1 tabs by s mouth at [facility], - bedtime M.D. 05/03 Tylenol 8 Hour 02/28 Hx Tablets ER 650mg See Unknown Arthritis Pain /2015 Instructi - ons 02/07 Lioresal 02/28 Hx Tablets 10mg Bedtime Unknown Repack /2015 - 05/01 [place] 02/28 Hx Tablets 10-325mg Q4H - 05/02 Pyridium 02/28 Hx Tablets 100mg Three Times - Daily 05/01 Sanctura XR 02/28 Hx Caps ER 20mg 3 tabs 24HR orally - daily 11/23 Requip 09/01 Hx Tablets 1mg 0.5 by mouth at [facility], - breafeast M.D. 08/02 , 0.5 at 4pm and 1.75 at bedtime- doesnt take breakfast or 4 pm dose,just at hs Requip 09/24 Hx Tablets 1.5mg 1 po bid than 1.75 Andres, - at hs.. M.D. 03/24 Cialis 12/31 Hx Tablets 20mg 14tab take 1 Jose J Patel s daily, Juan Jose Pollockn M.D. 09/13 Enalapril Maleate 10/17 Hx Tablets 2.5mg 90tab take 1 401.1 Jose J Patel s tab by Maris - mouth at M.D. 11/21 bedtime Requip 08/27 Hx Tablets 0.5mg 810ta Take 3 Carmen bs tabs po Andres, - tid M.DReginald 09/24 Cialis 01/03 Hx Tablets 10mg 3tabs qd prn Jose J Patel Juan Jose Pollock.DReginald 08/27 Azilect 09/07 Hx Tablets 1mg 90tab take one Carmen s tablet by Andres - mouth M.D. 10/23 every Requip 09/01 Hx Tablets 0.5mg 810ta 1 by Carmen bs mouth Andres, - M.DReginald 09/01 Enalapril Maleate 08/24 Hx Tablets 10mg 90tab take one Jose J Patel s tablet by Maris, - mouth one M.D. 10/17 daily Ropinirole HCL 04/27 Hx Tablets 0.25mg 120ta 1 tab by Silvestre lisa mouth and Emilee, - 2 tabs M.D. 09/01 night Hydrocodone 04/03 Hx Tablets 10-300mg 60tab 1 tablet Jose J Patel Bitartrate/Acetflorecita s by preeti Chakraborty - every 4 M.D. 11/07 hours needed Carbidopa/Levodop 02/20 Hx Tablets 25-100mg 90tab one po Ernst /2012 s tid Juan Jose Hebert.Neha 02/20 Ropinirole HCL 02/20 Hx Tablets 0.25mg 120ta 1 tab by Silvestre lisa mouth and Emilee, - 2 tabs M.D. 04/27 night Enalapril Maleate 02/14 Hx Tablets 10mg 90tab 1 po qd Jose J Patel Juan Jose Nina M.D. 06/05 Neurontin 12/23 Hx Tablets 600mg 90tab 1 po tid Farooq s Juan Jose Mc M.D.,FACP 12/23 Gabapentin 12/23 Hx Tablets 600mg 180ta take one Jose J Patel bs tablet by Juan Jose Pollock M.D. 12/05 times a day Cymbalta 10/25 Hx Caps 30mg 90cap 1 po qam Jose J Patel Part Juan Jose Nina M.D. 02/14 Yaya 09/21 Hx Tablets 5-40mg 30tab one per Jose J Patel s Juan Jose Dhaliwal M.D. 09/02 Cymbalta 09/[address] 60mg 1 po qd Jose J Patel Juan Jose Schmitz M.D. 10/25 Physical Therapy 04/05 Hx pelvice 781.2 Reginald floor Juan Jose Pollock M.D. 08/24 on interstit ial cystitis Vesicare 12/01 Hx Tablets 5mg 90tab 1 po qd Juan Jose Mcgee M.D. 04/05 Zithromax Z-Ben 08/19 Hx Tablets 250mg 1tabs 2tab 466.0 today and Juan Jose Delcid 1tab Lacie 11/05 daily 4days Neurontin 11/27 Hx Tablets 600mg 180ta 1 in am, Farooq bs 1tab in Neha Barrera - tish [place],[facility] 12/23 Enalapril Maleate 04/03 Hx Tablets 5mg 90tab 1 po qd Maris [place] s Juan Jose KOENIG, 04/03 Enalapril Maleate 04/03 Hx Tablets 20mg 90tab 1 po qd Jose J Patel Juan Jose Nina M.D. 08/24 Cialis 11/25 Hx Tablets 5mg 30tab 1 PO prn Jose J Patel Juan Jose Nina M.D. 01/03 Astelin 08/22 Hx Solution 137mcg/Sp 1unit 2 bid prn Jose J Patel ray Juan Jose Nina M.D. 04/02 Metamucil 08/22 Hx Capsules 0.52gm [...] Lacie 11/07 "de-acidi fy the food" Saw Reynolds 11/21 Hx Capsules 160mg 1 po qd [...] Capsules 100mg 30cap 1 PO bid Other / s Physician - Practices 02/14 Fiber Con Hx prn Other / Physician - Practices 11/21 Aspirin Hx Tablets 81mg 100ta 1 PO qd Nato, / bs MD Danny - 08/24 Hillrose-3 Hx Capsules 1000mg 30cap 1 PO qd. Other s Physician - Practices 02/14 Cynthia Hx Tablets 180mg 90tab 1 po qd Jose J E. / Juan Jose Nina M.D. 10/10 Azo Standard Hx Tablets 97.5mg prn Unknown Maximum Strength /0000 - 05/01 Flomax Hx Capsules 0.4mg 30cap 1 po qd Unknown / s - 02/24 Valium /00 Hx Tablets 5mg 60tab 1/2 tab Jose J E. /0000 s bid prn Maris, - M.D. 09/20 Ibuprofen 00/00 Hx Capsules 200mg prn / - 08/24 Hydrocodone Hx Tablets 5-500mg 75tab 1 tablet Unknown Bitartrate/Acetam /0000 s by mouth inophen - every 4 12/10 hours needed Azilect Hx Tablets 1mg 1 po Unknown daily - 10/02 Trospium Chloride Hx Caps ER 60mg Rosas, ER /0000 24HR Juan Jose Brannon MD 01/03 Requip 00 Hx Tablets 0.25mg 180ta 2 po tid / bs - 09/01 Requip 00 Hx Tablets 1mg 90tab take one s tablet by - mouth tid 08/27 Cysto Protek Hx qd / - 01/03 Excedrin Migraine Hx Tablets 250-250-6 qd otc 5mg - 08/27 [facility] XR Hx Caps ER 60mg 30cap 1 po qd 24HR s - 09/20 Cystoprotek 00 Hx Capsule 2 caps po Unknown daily - 08/27 Aspirin Low Dose Hx Tablets 81mg 30tab 1 po qd / s - 09/02 Requip 00/00 Hx Tablets 0.25mg 90tab take one Juliana M. /0000 s by mouth Feliz, - every M.D. 09/14 night at /2016 bedtime, together with three 0.5mg tabs Singulair 00 Hx Tablets 10mg 90tab take one Jose J E. /0000 s tablet by Maris, - mouth at M.D. 02/04 bedtime /2014 prn Aloe Vera 00 Hx Capsules 4 PO Unknown / Daily. - 10/10 Aleve / Hx Tablets 220mg 1 Tablet Unknown / Daily - 01/22 Myrbetriq Hx Tablets ER 50mg 1 by Unknown /0000 24HR mouth - every day 11/07 Nortriptyline HCL 00/00 Hx Capsules 10mg 90cap 1 po Unknown /0000 s qhs.. - 12/24 Baclofen 00/ Hx Tablets 10mg 90tab 1/2 tab Unknown /0000 s bid - 09/02 Trospium Chloride Hx Tablets 60mg 60tab 1 tab by Unknown /0000 s mouth - once a Carbidopa-Levodop Hx Tablets 25-100mg 90tab 1 by Unknown a /0000 s mouth - three 05/24 times day Azo Tabs 00 Hx Tablets 95mg prn Unknown /0000 - 09/22 Tylenol Extra Hx Tablets 500mg 2 by Unknown Strength /0000 mouth as - needed 10/30 Baclofen Hx Tablets 10mg 1 by Unknown /0000 mouth two - times a 11/07 day needed Azelastine HCL Hx Solution 0.1% 2 Unknown (Nasal) /0000 inhalatio - ns in 11/02 nostril twice daily as needed Aleve 00 Hx Tablets 220mg 1 po as Unknown /0000 needed - 11/07 [facility] XR Hx Caps ER 60mg 1 po qday Unknown /0000 24HR - 11/02 Uribel 00 Hx Capsules 118mg 1 tab Unknown /0000 orally - every 4 / hrs prn /2017 Citrucel Hx Tablets 500mg 2 tabs Unknown /0000 twice a - day 11/07 Calcium Hx 65mg 1 tab Unknown Glycerophosphate /0000 daily by - mouth 04/10 Seroquel Hx Tablets 25mg 45tab take 1/2 Carmen /0000 s tab by Andres, - mouth at M.D. 05/05 bedtime /2019 Sorbitol Hx Solution 70% 30 Unknown / millilite - rs by 02/01 mouth needed constipat ion Immunizations CPT Code Status Date Vaccine Lot # [id number] Given 02/02/2018 Fluzone High Dose 84927 Given 02/07/2017 Influenza Virus Vaccine, Quadrivalent, Split, Preservative Free 61117 Given 02/26/2016 Fluzone High Dose 61853 Given 02/04/2015 Influenza Virus Vaccine, Quadrivalent, Split, [id number] Preservative Free 02971 Given 09/02/2014 Pneumococcal Conjugate Vaccine 13 Valent For [id number] Intramuscular Use 02114 Given 01/23/2014 Tdap - Tetanus/Diptheria/Acellular Pertussis [id number] 36963 Given 01/23/2014 Influenza Virus Vaccine, Quadrivalent, Split, [id number] Preservative Free Q2038 Given 02/03/2012 Fluzone Vaccine Q2038 Given 01/25/2012 Fluzone Vaccine Q2038 Given 01/04/2011 Fluzone Vaccine [id number] 29741 Given 02/10/2010 Influenza Virus 3Yrs & Over [id number] 71685 Given 02/13/2009 Influenza Virus 3Yrs & Over 41462 Given 11/22/2007 Zoster (Zostavax) [id number] 80143 Given 11/07/2003 Td (History By Patient) 02280 Given 10/20/2000 Pneumovax (History By Patient) Vital Signs Date Vital Result Comment 05/05/2018 9:42am Height 62.5 inches 5'2.50" Weight [...] H/L Range Note Comp Metabolic Panel 05/01/2018 [facility] Sodium 143 mmol/L N 135-[address] [place] [address] [phone] Potassium 4.1 mmol/L N 3.5-5.0 Chloride 109 [...] Egfr 65.1 >60 1 Lipid Profile 05/01/2018 [facility] Triglycerides 89 mg/dL 2 (Trig/Chol/HDL) [address] [place] [address] [phone] Cholesterol 185 mg/dL 3 HDL Cholesterol 48.0 mg/dL 4 LDL Cholesterol 119 mg/dL 5 Urinalysis Profile 04/20/2018 [facility] Urine Color Yellow [address] [place] [address] [phone] Urine Appearance Clear Urine Specific [place] 1.012 N 1.010-1.030 Urine pH 6.0 N [...] Present Abnormal Absent Urine Culture And 04/20/2018 [facility] Urine Culture SEE RESULT [address] [place] [address] [phone] Ua Routine 04/20/2018 [facility] Ua Specific <pending > [address] [place] [place] [address] [phone] Ua PH <pending> Ua Color <pending> Ua Appera <pending> Ua WBC <pending> Ua Protein <pending> Ua Glucose <pending> Ua Ketones <pending> Ua Bilirubin <pending> Ua Urobilinogen <pending> Ua Nitrite <pending> Ua Occult Blood <pending> Culture Urine & 04/20/2018 [facility] Culture Urine < pending> Sensitvities [address] [place] [address] [phone] Urinalysis Profile 05/19/2017 [facility] Urine Color Ghazala [address] [place] [address] [phone] Urine Appearance Clear Urine Specific [place] 1.015 N 1.010-1.030 Urine pH 6.0 N [...] Present Abnormal Absent Urine Culture And 05/19/2017 [facility] Urine Culture SEE RESULT [address] [place] [address] [phone] Vitamin B12 And 04/27/2017 [facility] Vitamin B12 315 pg/mL N 180-91 8 Folate Serum [address] [place] [address] [phone] Folic Acid (Folate) > 24.20 ng/mL >3.99 9 Laboratory test 04/27/2017 [facility] Magnesium 2.0 mg/dL N 1.9-2.7 [address] [place] [address] [phone] Lipid Profile 04/27/2017 [facility] Triglycerides 83 mg/dL 11 (Trig/Chol/HDL) [address] [place] [address] [phone] Cholesterol 170 mg/dL 12 HDL Cholesterol 48.1 mg/dL 13 LDL Cholesterol 105 mg/dL 14 Comp Metabolic 04/27/2017 [facility] Potassium 4.6 mmol/L N 3.5-5.0 Panel [address] [place] [address] [phone] Chloride 105 mmol/L N 101-111 Co2 Carbon [...] N2N/CCD Import Urine Specific 1.024 1.010- 1.030 [place] Urine pH 5.0 5-9 Vitamin B12 And 03/26/2016 [facility] Vitamin B12 256 pg/mL N 180-914 16 Folate Serum [address] [place] [address] [phone] Folic Acid (Folate) 15.99 ng/mL N >3.99 17 Laboratory test 03/26/2016 [facility] Magnesium 2.1 mg/dL N 1.9-2.7 18 finding [address] [place] [address] [phone] Lipid Profile 03/26/2016 [facility] Triglycerides 117 mg/dL N 19 (Trig/Chol/HDL) [address] [place] [address] [phone] Cholesterol 164 mg/dL N 20 HDL Cholesterol 42.6 mg/dL N 21 LDL Cholesterol 98 mg/dL N 22 Comp Metabolic Panel 03/26/2016 [facility] Sodium 139 mmol/L N 133-145 [address] [place] [address] [phone] Potassium 4.1 mmol/L N 3.5-5.0 Chloride 104 [...] 58.8 N >60 23 Lipid Profile 01/21/2015 [facility] Triglycerides 95 mg/dL N 24 (Trig/Chol/HDL) [address] [place] [address] [phone] Cholesterol 169 mg/dL N 25 HDL Cholesterol 36.9 mg/dL N 26 LDL Cholesterol 113 mg/dL N 27 Comp Metabolic Panel 01/21/2015 [facility] Sodium 140 mmol/L N 133-145 [address] [place] [address] [phone] Potassium 4.3 mmol/L N 3.5-5.0 Chloride 106 [...] 55.1 N >60 28 Lipid Profile 01/21/2014 [facility] Triglycerides 96 mg/dL N 29 (Trig/Chol/HDL) [address] [place] [address] [phone] Cholesterol 211 mg/dL N 30 HDL Cholesterol 52.3 mg/dL N 31 LDL Cholesterol 140 mg/dL N 32 Comp Metabolic Panel 01/21/2014 [facility] Sodium 140 mmol/L N 133-[address] [place] [address] [phone] Potassium 4.3 mmol/L N 3.7-5.6 Chloride 106 [...] 52.5 N >60 33 Laboratory test 01/21/2014 [facility] Glucose 75 mg/dL N 70- [address] [place] [address] [phone] CBC W/Auto Diff 10/11/2013 [facility] White Blood 6.6 10^3/uL N 4.8-10.[address] [place] [address] [phone] Red Blood Count 4.76 10^6/uL N 4.0-5.4 [...] Cells % 0.1 N Culture Urine 10/11/2013 [facility] Urine Culture (SEE NOTE) 34 [address] [place] [address] [phone] Ua Routine 10/11/2013 [facility] Urine Color Yellow N [address] [place] [address] [phone] Urine Appearance Clear N Urine Specific [place] 1.021 N 1.010-1.030 Urine pH 5.0 N [...] Present Abnormal Absent BMP Basic Metabolic 10/11/2013 [facility] Sodium 142 mmol/L N 133-145 Panel [address] [place] [address] [phone] Potassium 4.6 mmol/L N 3.7-5.6 Chloride 107 mmol/L N 101-111 Co2 Carbon Dioxide 31 mmol/L N 22-32 Anion Gap 4 mmol/L N 2-11 Glucose 91 mg/dL N 70-100 Blood Urea Nitrogen 25 mg/dL High 6-24 Creatinine 1.50 mg/dL High 0.67-1.17 BUN/Creatinine Ratio 16.7 N 8-20 Calcium 9.4 mg/dL N 8.6-10.3 Egfr Non- 45.4 N >60 Egfr 58.4 N >60 36 Laboratory test 09/20/2013 [facility] PSA Diagnostic 0.212 N 0 -4.000 [address] ng/[place] [address] [phone] CBC Auto Diff 09/20/2013 [facility] White Blood 8.1 N 4.8- 10.[address] Count 10^3/[place] [address] [phone] Red Blood Count 4.53 10^6/uL N 4.0-5.4 [...] Cells % 0 N Urinalysis Profile 09/20/2013 [facility] Urine Color Ghazala N [address] [place] [address] [phone] Urine Appearance Clear N Urine Specific [place] 1.020 N 1.010-1.030 Urine pH 6.0 N [...] Absent N Absent Urine Culture And 09/20/2013 [facility] Urine Culture (SEE NOTE ) [address] [place] [address] [phone] Comp Metabolic 08/29/2013 [facility] Sodium 140 mmol/L N 133- [address] [place] [address] [phone] Potassium 4.6 mmol/L N 3.7-5.6 Chloride 105 [...] 61.2 N >60 40 Ua W/Microscopic 01/04/2013 [facility] Urine Color Yellow [address] [place] [address] [phone] Urine Appearance Clear Urine Specific [place] 1.025 1.010-1.030 Urine Esterase Negative Negative Urine [...] None Seen None Seen Culture Urine 01/04/2013 [facility] Urine Culture (SEE NOTE) [address] [place] [address] [phone] Lipid Profile 01/02/2013 [facility] Triglycerides 319 mg/dL High 40-200 (Trig/Chol/HDL [facility] [place] [address] [phone] Cholesterol 188 mg/dL Less than 200 HDL Cholesterol 34 mg/dL Low 40-60 42 Cholesterol/HDL Ratio 5.5 Average High 1-4.44 LDL Cholesterol 90.2 Less Than 100 43 Basic Metabolic Panel 08/24/2012 [facility] Sodium 141 mmol/L 133-145 [place] [address] [phone] Potassium 5.3 mmol/L High 3.5-5.0 Chloride 107 mmol/L 101-111 Co2 Carbon Dioxide 30.0 mmol/L 22-32 Anion Gap 4.0 mmol/L 2-11 Glucose 85 mg/dL 70-100 Blood Urea Nitrogen 22 mg/dL 6-24 Creatinine 1.50 mg/dL High 0.50-1.40 BUN/Creatinine Ratio 14.7 8-20 Calcium 9.6 mg/dL 8.1-9.9 Egfr Non- 45.5 >60 Egfr 58.5 >60 44 Laboratory test 02/21/2012 [facility] Vitamin B12 619 pg/mL 180-914 [place] [address] [phone] TSH (Thyroid Stimulating Horm) 1.77 MIU/ML 0.34-5.60 Urinalysis W/Microscopic 09/22/2011 [facility] Ua [place] [address] [phone] Appearance-Urine CLEAR Clear Specific [place]-Ur 1.018 1.010-1.030 Esterase-Urine TRACE Abnormal Negative Nitrite NEGATIVE Negative [id number] NEGATIVE Negative Protein-Urine NEGATIVE Negative PH-Urine 5.0 5-9 Blood-Urine NEGATIVE Negative Ketones-Urine NEGATIVE Negative Bilirubin-Ur NEGATIVE Negative Glucose-Urine NEGATIVE Negative WBC-Urine 0-2 0-5 RBC-Urine 0-2 0-2 Epith Cells-Ur FEW None Urine Culture 09/22/2011 [facility] M <SEE 45 & Sensit[address] NOTE> [place], [place] [phone] CBC Auto Diff 02/23/2011 [facility] White 6.9 CUMM 4.8-[address] Blood 0.8 [place] [address] Count [phone] Red Cell Count 4.87 CUMM 4.6-6.2 Hemoglobin [...] Basophils 0 0-0.2 Basic Metabolic Panel 02/23/2011 [facility] Sodium 143 mmol/L 135-[address] [place] [address] [phone] Potassium 4.7 mmol/L 3.5-5.0 Chloride 107 mmol/L 101-111 Co2 (Carbon Dioxide) 26.0 mmol/L 22-32 Anion Gap 10.0 mmol/L 2-11 46 Glucose 60 mg/dL Low 70-100 BUN 14 mg/dL 6-24 Creatinine 1.2 mg/dL 0.50-1.40 One Over Creatinine 0.83 BUN/Creatinine Ratio 11.7 8-20 Calcium 9.6 mg/dL 8.1-9.9 eGFR Non- 59.0 > 60 eGFR 75.9 > 60 47 Laboratory test 02/23/2011 [facility] PSA,Diagnostic 0.40 0- 4 [address] NG/[place] [address] [phone] CBC Auto Diff 12/01/2010 [facility] White Blood Count 4.6 CUMM Low 4.8-10. [address] [place] [address] [phone] Red Cell Count 4.61 CUMM 4.6-6.2 Hemoglobin [...] Basophils 0 0-0.2 Comp Metabolic Panel 12/01/2010 [facility] Sodium 143 mmol/L 135-[address] [place] [address] [phone] Potassium 4.9 mmol/L 3.5-5.0 Chloride 108 mmol/L [...] 69.4 > 60 52 Laboratory test 12/01/2010 [facility] PTT (Aptt) 30.5 25.15- 38.53 finding [address] [place] [address] [phone] Protime 12/01/2010 [facility] Inr 1.01 0.82-1.17 53 [address] [place] [address] [phone] Protime 11.9 SEC 10.2-14.8 54 Lipid Profile 12/01/2010 [facility] Triglyceride 188 mg/dL 40 -200 (Trig/Chol/HDL) [address] [place] [address] [phone] Cholesterol 206 mg/dL High Less Than 200 55 High Density Lipoprotein 35 mg/dL Low 40-60 56 Cholesterol/HDL Ratio 5.89 AVERAGE High 1-4.97 Low Density Lipoprotein 133 mg/dL High Less Than 100 57 Lipid Profile 11/27/2009 [facility] Triglyceride 126 mg/dL 40 -200 (Trig/Chol/HDL) [address] [place] [address] [phone] Cholesterol 193 mg/dL Less Than 200 58 High Density Lipoprotein 32 mg/dL Low 40-60 59 Cholesterol/HDL Ratio 6.03 AVERAGE High 1-4.97 Low Density Lipoprotein 136 mg/dL High Less Than 100 60 Laboratory test 11/27/2009 [facility] PSA Screening 0.50 NG/ML 0-4 61 finding [address] [place] [address] [phone] Basic Metabolic 04/29/2009 [facility] Sodium 140 mmol/L 135- 145 Panel [address] [place] [address] [phone] Potassium 4.9 mmol/L 3.5-5.0 Chloride 102 mmol/L 101-111 Co2 (Carbon Dioxide) 31.0 mmol/L 22-32 Anion Gap 7.0 mmol/L 2-11 62 Glucose 81 mg/dL 70-100 63 BUN 13 mg/dL 6-24 Creatinine 1.30 mg/dL 0.50-1.40 One Over Creatinine 0.70 BUN/Creatinine Ratio 10.0 8-20 Calcium 9.8 mg/dL 8.1-9.9 64 eGFR Non- 57.5 > 60 eGFR 69.6 > 60 65 CBC With 11/25/2008 [facility] White Blood 6.1 CUMM 4.8-10.8 Electronic Diff [address] [place] [address] [phone] Red Cell Count 5.06 CUMM 4.6-6.2 Hemoglobin [...] 0 0-0.2 66 Comp Metabolic Panel 11/25/2008 [facility] Sodium 141 mmol/L 135-[address] [place] [address] [phone] Potassium 5.3 mmol/L High 3.5-5.0 Chloride 105 [...] 69.8 > 60 71 Lipid Profile 11/25/2008 [facility] Triglyceride 147 mg/dL 40 -200 (Trig/Chol/HDL) [address] [place] [address] [phone] Cholesterol 206 mg/dL High Less Than 200 72 High Density Lipoprotein 33 mg/dL Low 40-60 73 Cholesterol/HDL Ratio 6.24 AVERAGE High 1-4.97 Low Density Lipoprotein 144 mg/dL High Less Than 100 74 Laboratory test 11/25/2008 [facility] TSH 1.68 MIU/ML 0.34- 5.60 finding [address] [place] [address] [phone] PSA,Diagnostic 0.47 NG/ML 0-4 75 Comp Metabolic Panel 11/22/2007 [facility] Sodium 138 mmol/L 135-145 76 [address] [place] [address] [phone] Potassium 4.6 mmol/L 3.5-5.0 Chloride 108 mmol/L [...] (Sgot) 25 U/L 12-42 CBC With 11/22/2007 [facility] White Blood 8.7 CUMM 4.8-10.8 Electronic Diff [address] [place] [address] [phone] Red Cell Count 4.95 CUMM 4.6-6.2 Hemoglobin [...] Basophils 0 0-0.2 79 Lipid Profile 11/22/2007 [facility] Triglyceride 190 mg/dL 40 -200 (Trig/Chol/HDL) [address] [place] [address] [phone] Cholesterol 194 mg/dL Less Than 200 80 High Density Lipoprotein 33 mg/dL Low 40-60 81 Cholesterol/HDL Ratio 5.88 AVERAGE High 1-4.97 Low Density Lipoprotein 123 mg/dL High Less Than 100 82 Laboratory test 11/22/2007 [facility] TSH 1.71 MIU/ML 0.34- 5.[address] [place] [address] [phone] PSA Screening 0.60 NG/ML 0-4 83 CBC W/ Electronic 11/08/2006 [facility] White Blood 6.4 CUMM 4.8-10.8 [address] [place] [address] [phone] Abs Basophils 0 0-0.2 Abs Eosinophils 0.1 [...] 12 % 10.5-15 Comp Metabolic Panel 11/08/2006 [facility] One Over Creatinine 0.[address] [place], [place] [address] [phone] Anion Gap 6.0 mmol/L 2-11 85 Albumin/Globulin [...] Creatinine 1.4 mg/dL 0.5-1.4 Lipid Profile 11/08/2006 [facility] Cholesterol/HDL 6.87 High 1-4.97 (Trig/Chol/HDL) [address] Ratio AVERAGE [place], [place] [address] [phone] Cholesterol 206 mg/dL High Less Than 200 86 Triglyceride 166 mg/dL 40-200 High Density Lipoprotein 30 mg/dL Low 40-60 87 Low Density Lipoprotein 143 mg/dL High Less Than 100 88 Laboratory test 11/08/2006 [facility] PSA Screening 0.80 NG/ML 0.01-4.0 [address] [place] [address] [phone] TSH 1.23 MIU/ML 0.34-5.60 1 Because ethnic [...] [address]: Daphne Perez MD Acct: [id number] Unit: [id number] AGE: 83 Location: [facility] Re04/20/18 SEX: M Status: REG REF SPEC: [id number] TYRONE: 04/20/18-[address]: Daphne Perez MD REQ: [id number] RECD: 04/20/18 STATUS: COMP _ SOURCE: URINE SPDESC: ORDERED: Urine Culture Urine Source: Clean Catch Procedure Result Reported Site Urine Culture Final 04/21/18- 1612 ML No growth of clinically significant organisms * ML - Main Lab . END OF REPORT DEPARTMENT OF PATHOLOGY, [address] [place] [address] Vernon Patten M.D. Director [facility] # [id number] 7 SEE RESULT BELOW Name: DUTCH CHAVIRA : [address]: Simon Florez MD Acct: [id number] Unit: [id number] AGE: 82 Location: [facility] Re05/19/17 SEX: M Status: REG REF SPEC: [id number] TYRONE: 05/19/[address]: Simon Florez MD REQ: [id number] RECD: 05/19/17 STATUS: AILYN KAPLAN DR: Jose J Pollock III, MD _ SOURCE: URINE SPDESC: ORDERED: Urine Culture Procedure Result Reported Site Urine Culture Final 05/20/17- 1701 ML No Growth (<1,000 CFU/mL) * ML - MAIN LAB ([facility]) . END OF REPORT * ML=Testing performed at Main Lab DEPARTMENT OF PATHOLOGY, [address] [place] [address] Vernon Patten M.D. Director [facility] # [id number] Normal Range 180 to 914 Indeterminate [...] <15 (or dialysis) 34 RUN DATE: 10/13/13 [facility] LAB LIVE PAGE 1 RUN TIME: [address] [place], [place] [address] Specimen Inquiry Name: DUTCH CHAVIRA : [address]: Carmen Campos MD Acct: [id number] Unit: [id number] AGE: 78 Location: [facility] Re10/11/13 SEX: M Status: REG REF SPEC: [id number] TYRONE: 10/11/[address]: Carmen Campos MD REQ: [id number] RECD: 10/11/13 STATUS: AILYN KAPLAN DR: Jose J Pollock III, MD _ SOURCE: URINE SPDESC: ORDERED: Urine Culture QUERIES: Urine Source: Random Procedure Result Verified Site Urine Culture Final 10/13/13- 1124 ML Organism 1 NORMAL BOOM [place] Count 1-10,000 (Few) CFU/ML END OF REPORT * ML=Testing performed at Main Lab DEPARTMENT OF PATHOLOGY, [address] [place] [address] Vernon Patten M.D. Director [facility] # [id number] 35 *Ascorbic acid is present which may [...] detection of blood. 39 RUN DATE: 09/22/13 [facility] LAB LIVE PAGE 1 RUN TIME: [address] [place] [address] Specimen Inquiry Name: DUTCH CHAVIRA : [address]: Jose J Pollock III, MD Acct: [id number] Unit: [id number] AGE: 78 Location: [facility] Re09/20/13 SEX: M Status: REG REF SPEC: [id number] TYRONE: 09/20/13-[address]: Jose J Pollock III, MD REQ: [id number] RECD: 09/20/13 STATUS: COMP _ SOURCE: URINE SPDESC: ORDERED: Urine Culture QUERIES: Medent Number [id number] Procedure Result Verified Site Urine Culture Final 09/22/13- 0855 ML No Growth Day 2 (<1,000 CFU/mL) END OF REPORT * ML=Testing performed at Main Lab DEPARTMENT OF PATHOLOGY, [facility] [place], [place] [address] Vernon Patten M.D. Director [facility] # [id number] 40 Because ethnic data is not always [...] <15 (or dialysis) 41 RUN DATE: 01/06/13 [facility] LAB LIVE PAGE 1 RUN TIME: 1047 [facility] [employer] [place], [place] [address] Specimen Inquiry Name: DUTCH CHAVIRA : [address]: Jose J Pollock III, MD Acct: [id number] Unit: [id number] AGE: 77 Location: [facility] Re01/04/13 SEX: M Status: REG REF SPEC: [id number] YTRONE: 01/04/[address]: Jose J Pollock III, MD REQ: [id number] RECD: 01/04/13 STATUS: COMP _ SOURCE: URINE SPDESC: ORDERED: Urine Culture QUERIES: Urine Source: Clean Catch Procedure Result Verified Site Urine Culture Final 01/06/13- 1046 ML No Growth Day 2 (<1,000 CFU/mL) END OF REPORT * ML=Testing performed at Main Lab DEPARTMENT OF PATHOLOGY, [address] [place] [address] Vernon Patten M.D. Director [facility] Permit #[id number] 42 HDL Interpretation: Undesirable: High Risk: Less [...] <15 (or dialysis) 45 RUN DATE: 09/24/11 [facility] NMI LIVE PAGE 1 RUN TIME: 905 Specimen Inquiry RUN USER: INTERFACE Name: DUTCH CHAVIRA Status: REG REF Re09/22/11 Age/Sex: 76/M Unit#: [id number] Location: [facility] : 37 SPEC #: [id number] TYRONE: 09/22/11 STATUS: COMP REQ #: [id number] RECD: 09/22/11 [facility] [address] SOURCE: URINE ENTR: 09/22/11-[address]: KAMERON: ORDERED: URINE C S QUERIES: MEDENT REQUISITION # [id number] ACT WKST: UR 09/24/11 #1 Procedure Result Verified Site > URINE CULTURE SENSITIVI Final 09/24/11- 0906 ML FINAL: NO GROWTH DAY 2 (<1,000 CFU/mL) - [facility] Permit #[id number] [address] [place] [address] DEPARTMENT OF PATHOLOGY, [address] [place] [address] [facility] Permit #[id number] Vernon Patten M.D. Director Valerie Lackey M.D. [employer] 46 Anion gap measurement may be of [...] LEVELS OF PSA MEASURED USING THE DENICE orderbolt ACCESS HYBRITECH IMMUNOASSAY SHOULD NOT BE INTERPRETED [...] has been shown to interfere with the Jendrassik-Maylin method for measuring total bilirubin. Samples from [...] SERUM LEVELS OF PSA MEASURED USING THE [employer] ACCESS HYBRITECH IMMUNOASSAY SHOULD NOT BE INTERPRETED [...] change was based on recommendations from the [place] [employer]. 64 Please note change in [...] change was based on recommendations from the [place] [employer]. 69 Please note change in reference range effective 07 . 70 A metabolite of Naproxen, O-desmethylnaproxen, has been shown to interfere with the Jendrassik-Maylin method for measuring total bilirubin. Samples from [...] SERUM LEVELS OF PSA MEASURED USING THE [employer] ACCESS HYBRITECH IMMUNOASSAY SHOULD NOT BE INTERPRETED [...] SERUM LEVELS OF PSA MEASURED USING THE [employer] ACCESS HYBRITECH IMMUNOASSAY SHOULD NOT BE INTERPRETED [...] SERUM LEVELS OF PSA MEASURED USING THE [employer] ACCESS HYBRITECH IMMUNOASSAY SHOULD NOT BE INTERPRETED ABSOLUTE EVIDENCE OF THE PRESENCE OR ABSENCE OF DISEASE. THE PSA VALUE SHOULD BE USED IN CONJUNCTION WITH OTHER PERTINENT CLINICAL DIAGNOSTIC PROCEDURES. Procedures Date Code Description Status 12/20/2017 19649 ECHO Transthoracic, Real-Time 2D With Doppler And Completed Color Flow 12/20/2017 78180 ECHO Transthoracic, Real-Time 2D With Doppler And Completed Color Flow 12/01/2017 45224 EKG Tracing & Interpretation Completed 12/23/2016 55427 ECHO Transthoracic, Real-Time 2D With Doppler And Completed Color Flow 12/07/2016 45170 EKG Tracing & Interpretation Completed 03/01/2016 53700 FX Metatarsal Care Completed 12/23/2015 95475 EKG Tracing & Interpretation Completed 11/28/2014 29207 ECHO Transthoracic, Real-Time 2D With Doppler And Completed Color Flow 11/27/2014 87397 Holter Monitor Review (24 hr)dr review & interp only Completed 11/21/2014 82115 EKG Tracing & Interpretation Completed 11/05/2014 70314259 Mammogram Completed 09/19/2014 95905 EKG Tracing & Interpretation Completed 03/13/2014 51040 EKG Tracing & Interpretation Completed 11/06/2013 88982 ECHO Transthoracic, Real-Time 2D With Doppler And Completed Color Flow 10/11/2013 17221 EKG Tracing & Interpretation Completed 03/29/2013 914294655 Diabetic Retinal Eye Exam Completed 03/12/2013 033904211 Diabetic Retinal Eye Exam Completed 02/16/2013 71097 EKG Tracing & Interpretation Completed 02/15/2012 29040 EKG Tracing & Interpretation Completed 02/03/2012 60429 ECHO Transthoracic, Real-Time 2D With Doppler And Completed Color Flow 01/20/2012 97559589 Colonoscopy Completed 02/09/2011 98909 EKG Tracing & Interpretation Completed 02/02/2011 89314 ECHO Transthoracic, Real-Time 2D With Doppler And Completed Color Flow 04/03/2010 98358 ECHO Transthoracic, Real-Time 2D With Doppler And Completed Color Flow 02/10/2010 31231 EKG Tracing & Interpretation Completed 02/02/2010 03109 Treadmill Interp/Report Only Completed 02/02/2010 60314 Stress Test Supervsn W/Out I/R Completed 01/07/2010 03957 EKG Tracing & Interpretation Completed 11/25/2008 27329 EKG Tracing & Interpretation Completed 11/08/2006 95066 EKG Tracing & Interpretation Completed 05/14/2002 53769226 Colonoscopy Completed Encounters Type Date Location Provider Dx Diagnosis Office Visit 04/13/2018 [facility] Dutch Taveras, K60.2 Anal fissure, 10:15a [facility], [facility] unspecified [place] 04[place]11[place]2018 [place]20 Parkinson's disease 12:00p [facility] Castano G31.84 Mild cognitive impairment, so stated Office Visit 02/07/2018 [place] R44.1 Visual 11:00a [facility] Lacie Campos hallucinations [facility] G31.84 Mild cognitive impairment, so stated G20 Parkinson's disease Office Visit 12/01/2017 [place] Luciano S. I35.1 Nonrheumatic aortic 1:40p Cardiology Lacie Reno (valve) insufficiency I10 Essential (primary) hypertension I71.9 Aortic aneurysm of unspecified site, without rupture Office Visit 11/24/2017 [facility] Internal Jose J Patel R03.0 Elevated 10:00a Suyapa Pollock M.D. blood-pressure [place] reading, w/o diagnosis of htn Office Visit 11/08/2017 [place]Mateus Morales G31.84 Mild cognitive 11:00a [facility] Lacie Campos impairment, so Of [facility] stated G20 Parkinson's disease R44.1 Visual hallucinations Office Visit 08/23/2017 [place]Mateus Morales R44.1 Visual 3:30p Neurologic Serv Lina Campos M.D. hallucinations [facility] G31.84 Mild cognitive impairment, so stated G20 Parkinson's disease Office Visit 05/23/2017 2:20p [facility] Internal Jose J Patel N30.10 Interstitial Suyapa Pollock M.D. cystitis (chronic) [place] without hematuria Office Visit 05/03/2017 4:00p [place]Mateus Morales G20 Parkinson's [facility] Lacie Campos disease Of [facility] R44.1 Visual hallucinations G31.84 Mild cognitive impairment, so stated Office Visit 05/02/2017 10:40a [facility] Internal Jose J Patel Z00.00 Encntr for Suyapa Pollock M.D. general adult [facility] medical exam w/o abnormal findings G20 Parkinson's disease E78.00 Pure hypercholesterolemia, unspecified N30.10 Interstitial cystitis (chronic) without hematuria G47.33 Obstructive sleep apnea (adult) (pediatric) K21.9 Gastro-esophageal reflux disease without esophagitis R60.0 Localized edema Office Visit 02/08/2017 [place]/Mateus Campos, G20 Parkinson's 10:30a Neu[facility] Serv Lina Medellin disease [facility] R44.1 Visual hallucinations G31.84 Mild cognitive impairment, so stated Office Visit 12/07/2016 3:40p [place] [facility] Luciano S. I10 Essential Lacie Reno (primary) hypertension E78.4 Other hyperlipidemia I35.0 Nonrheumatic aortic (valve) stenosis I35.1 Nonrheumatic aortic (valve) insufficiency R53.83 Other fatigue Office Visit 12/01/2016 11:30a [place] [facility] Carmen Campos G2Elisa Parkinson's Services Of [facility] Lacie disease M48.07 Spinal stenosis, lumbosacral region Office Visit 11/03/2016 [facility] [place] M93.971 Osteochondropathy, 9:00a [facility]ad Parks M.D. unspecified, right AT [place] ankle and foot Office Visit 10/15/2016 [facility] Internal Jose J Cooley Essential (primary) 9:40a Suyapa Pollock M.D. hypertension [place] G20 Parkinson's disease E78.00 Pure hypercholesterolemia, unspecified N30.10 Interstitial cystitis (chronic) without hematuria M79.673 Pain in unspecified foot Office Visit 09/14/2016 [place] Linn Tai Parkinson's 10:00a Neu[facility] Serv Of M.DReginald disease [facility] R41.89 Oth symptoms and signs w cognitive functions and awareness G47.52 REM sleep behavior disorder R53.1 Weakness Office Visit 12/23/2015 3:40p [place] [facility] Qutaybeh SReginald I10 Essential Lacie Reno (primary) hypertension G47.33 Obstructive sleep apnea (adult) (pediatric) E78.0 Pure hypercholesterolemia I34.0 Nonrheumatic mitral (valve) insufficiency I36.1 Nonrheumatic tricuspid (valve) insufficiency I35.0 Nonrheumatic aortic (valve) stenosis I35.1 Nonrheumatic aortic (valve) insufficiency Office Visit 12/23/2015 [place] Linn Tai Parkinson's 9:45a Neurolog[facility] Serv Of M.DReginald disease [facility] M48.06 Spinal stenosis, lumbar region G47.52 REM sleep behavior disorder Office Visit 09/23/2015 11:20a [facility] Internal Jose J Patel I10 Essential ( primary) Suyapa Pollock M.D. hypertension [place] G20 Parkinson's disease N30.10 Interstitial cystitis (chronic) without hematuria G47.33 Obstructive sleep apnea (adult) (pediatric) E78.0 Pure hypercholesterolemia Office Visit 09/02/2015 [place] Carmen Campos, M48.06 Spinal 10:15a Neu[facility] Serv Of Lacie stenosis, [facility] lumbar region G20 Parkinson's disease G47.52 REM sleep behavior disorder R41.89 Oth symptoms and signs w cognitive functions and awareness Office Visit 02/05/2015 9:45a [place] [facility] Carmen Campos M48.06 Spinal stenosis, [facility] Med[place] lumbar region G20 Parkinson's disease Office Visit 01/21/2015 [place] Morales G21.9 Secondary 10:30a [facility] Of Lacie Campos parkinsonism, [facility] unspecified M48.06 Spinal stenosis, lumbar region Office Visit 12/25/2014 11:00a [place] [facility] Keila Renner, 458.9 Hypotension Unspec PA 424.1 Aortic Valve Disorder 595.1 Cystitis Chronic Interstitial 327.23 Obstructive Sleep Apnea Adult & Pediatric Office Visit 12/03/2014 1:15p [place] [facility] Nurse Visit cc 401.1 Hypertension Benign Office Visit 11/21/2014 3:40p [facility] Qutaybeh S. 401.1 Hypertension Of Sharita Miner M.D. 780.4 Dizziness & Giddiness 458.9 Hypotension Unspec 424.1 Aortic Valve Disorder Office Visit 09/24/2014 [place] Morales 332.1 Parkinsonism 9:30a Neurologic Serv Lina Campos M.D. Secondary Upset Operator 724.03 Spinal Stenosis, Lumbar Region W/ Neurogenic Claudication Office Visit 09/19/2014 2:00p [facility] Internal Jose J Patel V72.81 Examination Medicine Juan Jose Pollock M.D. [facility] 595.1 Cystitis Chronic Interstitial 401.1 Hypertension Benign 332.1 Parkinsonism Secondary 530.81 Esophageal Reflux Office Visit 09/02/2014 11:20a [facility] Chuy Patel 401.1 Hypertension Sharita Pollock M.D. [place] 530.81 Esophageal Reflux 332.1 Parkinsonism Secondary V03.82 Streptococcus Pneumoniae Vaccination Spec Other Office 04/19/2014 [place] Coneh S. 794.31 Electrocardiogram Visit 10:40a Krystal Reno M.D. (ECG) (EKG) Abnormal 401.1 Hypertension Benign 424.1 Aortic Valve Disorder 424.0 Mitral Valve Disorder Office Visit 04/09/2014 [place] Morales 332.1 Parkinsonism 10:00a [facility] Lacie Campos Secondary [facility] 780.1 Hallucinations 327.42 REM Sleep Behavior Disorder 729.82 Cramp Of Limb Office Visit 12/25/2013 [place] Mor[place] 332.1 Parkinsonism 10:00a [facility] Lacie Campos Secondary Upset Operator Office Visit 12/05/2013 [facility] Of Keila Renner, 401.1 Hypertension 11:00a [facility] PA Benign 424.1 Aortic Valve Disorder 327.23 Obstructive Sleep Apnea Adult & Pediatric 424.0 Mitral Valve Disorder 595.1 Cystitis Chronic Interstitial Office Visit 11/01/2013 1:00p [place] [facility] Keila Renner, 332.1 Parkinsonism PA Secondary 458.9 Hypotension Unspec 424.0 Mitral Valve Disorder 327.23 Obstructive Sleep Apnea Adult & Pediatric 781.2 Gait Abnormality Office Visit 10/17/2013 2:00p [facility] Keila Renner, 401.1 Hypertension Benign PA 424.0 Mitral Valve Disorder 424.1 Aortic Valve Disorder 595.1 Cystitis Chronic Interstitial 332.1 Parkinsonism Secondary Office Visit 10/11/2013 [place] Qutajoana S. 401.1 Hypertension 2:20p Cardiology Lacie Reno Benign 424.0 Mitral Valve Disorder 424.1 Aortic Valve Disorder 458.9 Hypotension Unspec Office Visit 09/20/2013 3:00p [facility] Internal Jose J Patel 788.1 Dysuria Medicine Lacie Acuna Office Visit 08/28/2013 10:00a [facility] Carmen Campos, 332.0 Paralysis [facility] 780.1 Hallucinations 327.42 REM Sleep Behavior Disorder Office Visit 08/27/2013 10:40a [facility] Internal Jose J Patel 401.1 Hypertension Benign Medicine Lacie Acuna 595.1 Cystitis Chronic Interstitial 332.0 Paralysis Agitans Office Visit 04/24/2013 [place]/Mateus Morales 332.1 Parkinsonism 11:15a [facility] Of Lacie Campos Secondary Upset Operator 368.16 Visual Disturbance Psychophysical 327.42 REM Sleep Behavior Disorder Office Visit 03/06/2013 [place]/Mateus Morales 332.1 Parkinsonism 9:30a [facility] Of Lacie Campos Secondary [facility] 368.2 Diplopia Office Visit 02/16/2013 [place] Luciano Goldstein 401.1 Hypertension 1:40p Cardiology Lacie Reno Benign 327.23 Obstructive Sleep Apnea Adult & Pediatric 424.1 Aortic Valve Disorder 424.0 Mitral Valve Disorder Office Visit 01/10/2013 11:30a [place] [facility] Carmen Campos, 781.2 Gait Abnormality Services Of [facility] Lacie 327.42 REM Sleep Behavior Disorder 378.9 Eye Movement Disorder Unspec Office Visit 09/07/2012 1:15p [place] [facility] Silvestre 332.0 Paralysis Services Of [facility] Lacie Hebert 327.42 REM Sleep Behavior Disorder 327.23 Obstructive Sleep Apnea Adult & Pediatric Office Visit 08/24/2012 11:00a [facility] Internal Jose J Patel 401.1 Hypertension Suyapa Pollock M.D. Benign Hunt Office Visit 04/27/2012 11:15a [facility] Silvestre 332.0 Paralysis Agitans Services Of Eyad Hebert M.D. 327.42 REM Sleep Behavior Disorder Office Visit 04/03/2012 3:20p [facility] Internal Jose J Patel 332.0 Paralysis Lacie Brumfield 788.1 Dysuria Office Visit 03/20/2012 4:00p [facility] Silvestre 332.0 Paralysis Services Of Lacie Nunes 327.42 REM Sleep Behavior Disorder Office Visit 02/25/2012 10:00a [facility] Chuy Patel 781.2 Gait Abnormality Lacie Brumfield 401.1 Hypertension Benign Office Visit 02/21/2012 9:00a [facility] Silvestre 333.1 Tremor Essential Services Of Eyad Hebert M.D. & Other Forms 781.2 Gait Abnormality 327.23 Obstructive Sleep Apnea Adult & Pediatric 327.42 REM Sleep Behavior Disorder Office Visit 02/15/2012 2:20p [place] [facility] Luciano Goldstein 424.1 Aortic Valve Lacie Reno Disorder 401.1 Hypertension Benign 424.0 Mitral Valve Disorder Office Visit 12/01/2011 10:00a [facility] Internal Medicine Jose J Pollock 788.1 Dysuria - Yaritza Medellin 569.42 Pain Anal Or Rectal Office Visit 09/22/2011 1:00p [facility] Internal Jose J E. 401.[address] [facility] Lacie Pollockwood 272.0 Hypercholesterolemia Pure 788.1 Dysuria Office Visit 04/05/2011 11:00a DO Not Use [employer]pset [employer] Jose J E. 401.1 Hypertension Benign AT Edward Pollock M.D. 781.2 Gait Abnormality Office Visit 02/09/2011 2:20p [place] [facility] Qutaybeh S. 424.1 Aortic Valve Lacie Reno Disorder 401.1 Hypertension Benign V72.84 Examination Preoperative Unspec 794.31 Electrocardiogram (ECG) (EKG) Abnormal Office Visit 12/01/2010 10:00a DO Not Use Upset Operator Johny V72.84 Examination AT Edward Delcid M.D. Preoperative Unspec 401.1 Hypertension Benign 424.1 Aortic Valve Disorder 530.81 Esophageal Reflux Office Visit 09/30/2010 1:40p DO Not Use Upset Operator Jose J E. 401.1 Hypertension Benign AT Edward Pollock M.D. 272.0 Hypercholesterolemia Pure 780.50 Sleep Disturbance Unspec Office Visit 08/19/2010 10:40a DO Not Use Upset Operator Johny 466.0 Bronchitis Acute AT Edward Delcid M.D. Office Visit 04/28/2010 10:40a DO Not Use Upset Operator Jose J E. 401.1 Hypertension AT Edward Pollock M.D. Benign 530.81 Esophageal Reflux 272.0 Hypercholesterolemia Pure 780.50 Sleep Disturbance Unspec Office Visit 04/13/2010 9:40a [place] [facility] Qutaybeh S. 786.05 Shortness Of Lacie Reno Breath 401.1 Hypertension Benign 424.1 Aortic Valve Disorder 424.0 Mitral Valve Disorder Office Visit 02/10/2010 2:20p [place] [facility] Qutaybeh S. 786.05 Shortness Of Lacie Reno Breath 401.1 Hypertension Benign 780.50 Sleep Disturbance Unspec Office Visit 01/07/2010 4:00p DO Not Use Upset Operator Johny 786.05 Shortness Of AT Edward Delcid M.D. Breath Office Visit 11/27/2009 9:00a DO Not Use Upset Operator Jose J E. 401.1 Hypertension AT Edward Pollock M.D. 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 300.09 Anxiety States AT Edward Pollock M.D. Other Office Visit 04/29/2009 11:00a DO Not Use Upset Operator Jose J E. 401.1 Hypertension Benign AT Edward Pollock M.D. 780.50 Sleep Disturbance Unspec Office Visit 04/03/2009 3:30p DO Not Use Upset Operator Jose J E. 401.1 Hypertension Benign AT Edward Pollock M.D. Office Visit 03/26/2009 11:30a DO Not Use Upset Operator Jose J E. 780.50 Sleep Disturbance AT Edward Pollock M.D. Unspec Office Visit 11/25/2008 9:00a [place] [facility] Jose J E. 477.9 Rhinitis Allergic Assoc AT Lacie Pollock Cause Unspec [facility] 796.2 Blood Pressure Reading Elevated W/O Hypertension 530.81 Esophageal Reflux 300.09 Anxiety States Other Office Visit 08/22/2008 11:30a [place] [facility] Jose J E. 530.81 Esophageal Reflux Assoc AT Lacie Pollock [facility] V58.32 Encounter For Removal Of Sutures Office Visit 11/22/2007 9:00a [place] [facility] Jose J E. 477.9 Rhinitis AT Rashad Pollock M.D. Allergic Cause [place] Unspec 530.81 Esophageal Reflux 272.0 Hypercholesterolemia Pure 602.9 Prostate Disorder Unspec V05.8 Single Disease Spec Other Vaccination & Inoculation Office Visit 11/08/2006 9:00a [place] [facility] Jose J E. 272.2 Hyperlipidemia Mixed Assoc AT Lacie Pollock [facility] 530.81 Esophageal Reflux Plan of Treatment Future Appointment(s):05/18/2018 10:15 am - Dutch Taveras MD, FACS at [facility]06/27/2018 11:00 am - Carmen Campos M.D. at [facility]05/09/2018 1:30 pm - Carmen Campos M.D. at [facility]05/05/2018 - Jose J Pollock M.D.Z00.00 Encounter for general adult medical examination without abnoComments:Discussed the new shingles vaccine; other shots current. (+) eye, dental exams.Follow up: yearly or prnI10 Essential (primary) hypertensionComments:BPs good; continue Rx , diet efforts, and home BP [id number] Pure hypercholesterolemia, unspecifiedComments:On RxG47.33 Obstructive sleep apnea (adult) (pediatric) Comments:Pt using a dental appliance again after having trouble with CPAP; follows with Dr NuñezN30.10 Interstitial cystitis (chronic) without hematuriaComments:Chronic pelvic pain/dysuria sx; follows with urology and a pain [id number] Parkinson's diseaseComments:On Rx and following with [id number] Mild cognitive impairment, so statedComments:Memory issues, occ hallucinations, REM sleep disorder with past neuro evals; no acute changes [id number] Gastro-esophageal reflux disease without esophagitisComments:No c/ o with Rx. Nocturnal anti-reflux measures via head of bed elevation discussed for his nocturnal "tickle" cough sxI34.0 Nonrheumatic mitral (valve) insufficiencyComments:Follows with cardiology; echo in November with new mild aortic stenosis, but otherwise stable. Chronic lower leg edema, better overnight. EF ok with echo. Sx better with using compression stockings and regular use advised
[2018-05-23] MEDS ORDERED: Albuterol 2.5 MG/3 ML NEB.SOL* (0.083%) INH ONE (18:54)
--- NOTE | 2018-05-24 09:38 | UC ---
- Progress Note Progress Note: Patient Name: DUTCH CHAVIRA Medical Record#: [id number] Ordering Physician: Miguel Cheung MD Acct.#: [id number] : 1935 Age: 83 Sex: M Location: [facility] Exam Date: 05/23/181758 ADM Status: DEP ER Order Information: CHEST PA & LAT 2 VWS Accession Number: [id number] CPT: 23745 INDICATION: Cough, possible aspiration. COMPARISON: Comparison is made with a prior study from January 27, 2005. TECHNIQUE: Dual-energy PA and lateral views of the chest were obtained. FINDINGS: The heart is within normal limits in size. Mediastinal and hilar contours appear within normal limits. There is a linear density which projects over the right middle lobe suggestive of atelectasis. The lungs are otherwise clear. No pleural effusion is seen. IMPRESSION: RIGHT MIDDLE LOBE SUBSEGMENTAL ATELECTASIS. R2 Preliminary Imaging Read R2 <Electronically signed by Moo Martínez MD in OV> 05/24/18705 Dictated By: Moo Martínez MD Dictated Date/Time: 05/24/18705 Transcribed Date/Time: 05/24/18703 Copy to: CC:Jose J Pollock III, MD; Miguel Cheung MD Imaging - [facility] Imaging [facility] [address] [address] ph ([phone]) ph ([phone]) ph ([phone]) This report is only to be considered final once signed by the Provider(s) as displayed in the "<Electronically Signed by >" field (s). Absence of a signature indicates the report is in a draft status and still needs to be finalized. In the event this document was created by someone other than the signing Provider, the individual initiating the document will be listed in the "Entered by:" or "Dictated by:" wang. 1 of 1 Pt placed on Augmentin - instructed f/u with PCP No change aditya 05/24/18 Course/Dx - Diagnoses Provider Diagnoses: Bronchitis, Cough, Aspiration into airway Discharge - Sign-Out/Discharge Documenting (check all that apply): Post-Discharge Follow Up All imaging exams completed and their final reports reviewed: Yes - Discharge Plan Condition: Stable Disposition: HOME Prescriptions: Amoxicillin/Clavulanate TAB* [Augmentin TAB 875*] 875 mg PO BID #20 tab Patient Education Materials: Acute Bronchitis (ED), Aspiration Pneumonia (DC), Chronic Cough (ED) Referrals: Mona Nance MD [Medical Doctor] - Jose J Pollock MD [Primary Care Provider] - Additional Instructions: FOLLOW UP WITH YOUR DOCTOR. GO TO THE EMERGENCY DEPARTMENT FOR ANY WORSENING OF YOUR CONDITION; CHEST PAIN, SHORTNESS OF BREATH, YOU FEEL ILL OR QUESTIONS OR CONCERNS. - Billing Disposition and Condition Condition: STABLE Disposition: Home
== END 2018-05-23 19:38 | disposition home or self-care (01) ==
LOC: UCCORT 17:44
DX: J40 Bronchitis, not specified as acute or chronic (principal); R05 Cough; T17.920A Food in respiratory tract, part unspecified causing asphyxiation, initial encounter; R60.0 Localized edema; Z87.891 Personal history of nicotine dependence; X58.XXXA Exposure to other specified factors, initial encounter; Y92.9 Unspecified place or not applicable
CPT/HCPCS: 71046; 99212; G0463

== ENCOUNTER 2019-01-26 09:51 | Emergency (ER) | payer MEDICARE, BC ==
--- OUTSIDE RECORDS SUMMARY | 2019-01-26 10:03 | XMS REPORT | Continuity of Care Document ---
:1935 External Reference #:[id number] Author Name Luciano Reno M.D. (transmitted by agent of provider Paige Sotelo) Address [address] [place] [id number] Care Team Providers Name Role Phone Jose J Pollock III, MD - Internal Care Team Information Compliance Reviewer [phone] Medicine Clovis Pillai MD - Urology Care Team Information Compliance Reviewer [phone] Nick Frank MD - Care Team Information Compliance Reviewer [phone] Ophthalmology Problems Active Problems Provider Date Benign essential hypertension Jose J Pollock M.D. Onset: 01/12/2011 Pure hypercholesterolemia Jose J Pollock M.D. Onset: 01/12/2011 Aortic valve disorder Luciano Reno M.D. Onset: 02/09/2011 Pre-surgery evaluation Luciano Reno M.D. Onset: 02/09/2011 Electrocardiogram abnormal Luciano Reno M.D. Onset: 02/09/2011 Dysuria Jose J Pollock M.D. Onset: 09/22/2011 Mitral valve disorder Luciano Reno M.D. Onset: 02/15/2012 Abnormal gait Jose J Pollock M.D. Onset: 02/25/2012 Parkinson's disease Jose J Pollock M.D. 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 Onset: 01/03/2013 Chronic interstitial cystitis Jose J Pollock M.D. Onset: 01/03/2013 Low blood pressure Luciano Reno M.D. Onset: 10/11/2013 Essential hypertension Jose J Pollock M.D. Onset: 02/04/2015 Obstructive sleep apnea syndrome Jose J Pollokc M.D. Onset: 05/05/2018 Social History Type Date Description Comments Sex Unknown Cigarette Use Quit 40 Years Ago ETOH Use 01/03/2013 Occasionally consumes alcohol Tobacco Use Start: Unknown End: Patient is a former Unknown smoker Recreational Drug Use Denies Drug Use Tobacco Use Start: Unknown Started at 17, quit at 21. Smoked 5 cigs per day. Smoking Status Reviewed: 01/16/19 Started at 17, quit at 21. Smoked 5 cigs per day. Exercise Type/Frequency Exercises regularly some daily exercises, pt started a "boxing for Parkinson's dz" class Allergies, Adverse Reactions, Alerts Description No Known Drug Allergies Medications Active Medications SIG Qnty Indications Ordering Date Provider Pantoprazole Sodium Take One Tablet By 90tabs Jose J Patel 06/20/2018 Mouth Every Day Lacie Pollock 20mg Tablets DR Rollator with 4 thick 1units G20 Carmen Campos, 12/01/2016 [facility] shelia molina M.D. basket and seat. dx: m48.07 and g20 Sinemet 1 by mouth three 270tabs Carmen Campos, 01/10/2013 25-100mg times a day M.DReginald Tablets Miralax 1/2 dose po qday 1mon Unknown 3350NF Packet Rapaflo 1 by mouth every 30caps Unknown 8mg Capsules day Lyrica 1 by mouth at 60caps Unknown 50mg Capsules bedtime Tylenol 2 tablets every 8 120caps Unknown 325mg hours as needed for Capsules pain Amlodipine Besylate Take One Tablet By 90tabs Jose J Patel Mouth Every Day Lacie Pollock 10mg Tablets Advil 1 tabs 2 times a Unknown 200mg Tablets day as needed Hydrocodone-Acetamin 1 tab by mouth Unknown ophen every 6 hours as 10-325mg needed Tablets Pyridium one by mouth three Unknown 100mg times a day for 3 Tablets days prn CBD Oil 1/3 of dropper 3 Unknown times daily for pain - slowly increasing to therapeutic level Flonase Allergy 2 puffs each nare Unknown Relief every in the 50mcg/Act morning Suspension Citrucel 6 tabs by mouth Unknown 500mg every day Tablets Immunizations CPT Code Status Date Vaccine Lot # 10258 Given 02/02/2018 Fluzone High Dose 63201 Given 02/07/2017 Influenza Virus Vaccine, Quadrivalent, Split, Preservative Free 60140 Given 02/26/2016 Fluzone High Dose 84707 Given 02/04/2015 Influenza Virus Vaccine, Quadrivalent, Split, [id number] Preservative Free 15380 Given 09/02/2014 Pneumococcal Conjugate Vaccine 13 Valent For [id number] Intramuscular Use 04649 Given 01/23/2014 Tdap - Tetanus/Diptheria/Acellular Pertussis [id number] 51675 Given 01/23/2014 Influenza Virus Vaccine, Quadrivalent, Split, [id number] Preservative Free Q2038 Given 02/03/2012 Fluzone Vaccine Q2038 Given 01/25/2012 Fluzone Vaccine Q2038 Given 01/04/2011 Fluzone Vaccine [id number] 24614 Given 02/10/2010 Influenza Virus 3Yrs & Over [id number] 23499 Given 02/13/2009 Influenza Virus 3Yrs & Over 75113 Given 11/22/2007 Zoster (Zostavax) [id number] 83454 Given 11/07/2003 Td (History By Patient) 23379 Given 10/20/2000 Pneumovax (History By Patient) Vital Signs Date Vital Result Comment 01/16/2019 3:04pm Height 62 inches 5'2" Weight 182.12 lb with shoes Heart Rate 68 /min BP Systolic Sitting 116 mmHg ule reg cuff BP Diastolic Sitting 68 mmHg ule reg cuff BMI (Body Mass Index) 33.3 kg/m2 Ejection Fraction 60-65% Echo 12/20/17 12/11/2018 1:05pm Height 62 inches 5'2" Weight 179.00 lb Heart Rate 74 /min BP Systolic Sitting 108 mmHg BP Diastolic Sitting 54 mmHg Respiratory Rate 14 /min O2 % BldC Oximetry 94 % BMI (Body Mass Index) 32.7 kg/m2 Results Description No Information Available Procedures Date Code Description Status 01/16/2019 42061 EKG Tracing & Interpretation Completed 11/05/2014 29793071 Mammogram Completed 03/29/2013 883976134 Diabetic Retinal Eye Exam Completed 03/12/2013 332684053 Diabetic Retinal Eye Exam Completed 01/20/2012 [id number] Colonoscopy Completed 05/14/2002 84128882 Colonoscopy Completed Medical Devices Description No Information Available Encounters Type Date Location Provider Dx Diagnosis Office Visit 12/11/2018 [place] Carmen Campos, G20 Parkinson's 1:00p Neurologic Serv Of M.D. disease [facility] G31.84 Mild cognitive impairment, so stated G47.33 Obstructive sleep apnea (adult) (pediatric) M54.2 Cervicalgia R53.1 Weakness Office Visit 12/01/2018 11:20a [facility] Internal Jose J E. I10 Essential ( primary) Medicine - Hillary Pollock M.D. hypertension G20 Parkinson's disease G47.33 Obstructive sleep apnea (adult) (pediatric) Office Visit 09/22/2018 9:00a Surgical Abdirizak Nascimento K62.89 Other specified [facility] Eyad Crouch MD diseases of anus AT [place] and rectum Office Visit 08/22/2018 1:00p [place] Carmen Campos, G20 Parkinson's Neurologic Serv M.D. disease Of [facility] G31.84 Mild cognitive impairment, so stated M54.2 Cervicalgia R53.1 Weakness R29.6 Repeated falls Office Visit 08/01/2018 [place] Carmen Campos, G20 Parkinson's 10:30a Neurologic Serv Of M.D. disease [facility] G31.84 Mild cognitive impairment, so stated M54.2 Cervicalgia R53.1 Weakness R29.6 Repeated falls Assessments Date Code Description Provider 01/16/2019 G47.33 Obstructive sleep apnea (adult) Luciano Reno M.D. (pediatric) 01/16/2019 I10 Essential (primary) hypertension Luciano Reno M.D. 01/16/2019 E78.5 Hyperlipidemia, unspecified Luciano Reno M.D. 01/16/2019 I77.819 Aortic ectasia, unspecified site Luciano Reno M.D. 01/16/2019 I35.0 Nonrheumatic aortic (valve) stenosis Luciano Reno M.D. 01/16/2019 E66.9 Obesity, unspecified Luciano Reno M.D. 12/11/2018 G20 Parkinson's disease Carmen Campos M.D. 12/11/2018 G31.84 Mild cognitive impairment, so stated Carmen Campos M.D. 12/11/2018 G47.33 Obstructive sleep apnea (adult) Carmen Campos M.D. (pediatric) 12/11/2018 M54.2 Cervicalgia Carmen Campos M.D. 12/11/2018 R53.1 Weakness Carmen Campos M.D. 12/01/2018 I10 Essential (primary) hypertension Jose J Pollock M.D. 12/01/2018 G20 Parkinson's disease Jose J Pollock M.D. 12/01/2018 G47.33 Obstructive sleep apnea (adult) Jose J Pollock M.D. (pediatric) 09/22/2018 K62.89 Other specified diseases of anus and Abdirizak Crouch MD rectum 08/22/2018 G20 Parkinson's disease Carmen Campos M.D. 08/22/2018 G31.84 Mild cognitive impairment, so stated Carmen Campos M.D. 08/22/2018 M54.2 Cervicalgia Carmen Campos M.D. 08/22/2018 R53.1 Weakness Carmen Campos M.D. 08/22/2018 R29.6 Repeated falls Carmen Campos M.D. 08/01/2018 G20 Parkinson's disease Carmen Campos M.D. 08/01/2018 G31.84 Mild cognitive impairment, so stated Carmen Campos M.D. 08/01/2018 M54.2 Cervicalgia Carmen Campos M.D. 08/01/2018 R53.1 Weakness Carmen Campos M.D. 08/01/2018 R29.6 Repeated falls Carmen Campos M.D. Plan of Treatment Future Appointment(s):01/18/2019 11:00 am - [facility] ECHO Schedule at [facility] [facility]03/13/2019 1:00 pm - Carmen Campos M.D. at [facility] Serv Of [facility]01/16/2019 - Luciano Reno M.D.G47.33 Obstructive sleep apnea (adult) (pediatric)I10 Essential (primary) hypertensionFollow up:one yr ovE78.5 Hyperlipidemia, bunvovgpzfjV54.819 Aortic ectasia, unspecified siteNew Orders:Echocardiogram, Scheduled: 01/18/19I35.0 Nonrheumatic aortic (valve) lbmawhysM22.9 Obesity, unspecified Functional Status Description No Information Available Mental Status Description No Information Available Referrals Description No Information Available
--- OUTSIDE RECORDS SUMMARY | 2019-01-26 10:03 | XMS REPORT | Continuity of Care Document ---
:1935 External Reference #:[id number] Author Name Luciano Reno M.D. (transmitted by agent of provider Paige Sotelo) Address [address] [place] [id number] Care Team Providers Name Role Phone Jose J Pollock III, MD - Internal Care Team Information Air Cargo Specialist Supervisor Medicine Clovis Pillai MD - Urology Care Team Information Air Cargo Specialist Supervisor [phone] Nick Frank MD - Care Team Information Air Cargo Specialist Supervisor [phone] Ophthalmology Problems Active Problems Provider Date Benign [...] 02/04/2015 Obstructive sleep apnea syndrome Jose J Pollock M.D. Onset: 05/05/2018 Social History Type Date [...] 4 thick 1units G20 Carmen Campos, 12/01/2016 [facility] [place] molina M.D. basket and seat. dx: [...] CPT Code Status Date Vaccine Lot # 37779 Given 02/02/2018 Fluzone High Dose 95498 Given 02/07/2017 Influenza Virus Vaccine, Quadrivalent, Split, Preservative Free 29119 Given 02/26/2016 Fluzone High Dose 18508 Given 02/04/2015 Influenza Virus Vaccine, Quadrivalent, Split, [id number] Preservative Free 93607 Given 09/02/2014 Pneumococcal Conjugate Vaccine 13 Valent For [id number] Intramuscular Use 24348 Given 01/23/2014 Tdap - Tetanus/Diptheria/Acellular Pertussis [id number] 73881 Given 01/23/2014 Influenza Virus Vaccine, Quadrivalent, Split, [id number] Preservative Free Q2038 Given 02/03/2012 Fluzone Vaccine Q2038 Given 01/25/2012 Fluzone Vaccine Q2038 Given 01/04/2011 Fluzone Vaccine [id number] 04963 Given 02/10/2010 Influenza Virus 3Yrs & Over [id number] 94269 Given 02/13/2009 Influenza Virus 3Yrs & Over 19954 Given 11/22/2007 Zoster (Zostavax) [id number] 40289 Given 11/07/2003 Td (History By Patient) 16353 Given 10/20/2000 Pneumovax (History By Patient) Vital [...] Available Procedures Date Code Description Status 01/16/2019 36121 EKG Tracing & Interpretation Completed 11/05/2014 [id number] Mammogram Completed 03/29/2013 883518116 Diabetic Retinal Eye Exam Completed 03/12/2013 106581163 Diabetic Retinal Eye Exam Completed 01/20/2012 [id number] Colonoscopy Completed 05/14/2002 [id number] Colonoscopy Completed Medical Devices Description No Information Available Encounters Type Date Location Provider Dx Diagnosis Office Visit 12/11/2018 [place] Carmen Campos, G20 Parkinson's 1:00p Neurologic Serv Of M.D. disease [facility] G31.84 Mild cognitive impairment, so stated G47.33 Obstructive sleep apnea (adult) (pediatric) M54.2 Cervicalgia R53.1 Weakness Office Visit 12/01/2018 11:20a [facility] Internal Jose J E. I10 Essential ( primary) Medicine - Hillary Pollock M.D. hypertension G20 Parkinson's disease G47.33 Obstructive sleep apnea (adult) (pediatric) Office Visit 09/22/2018 9:00a Surgical Abdirizak Nascimento K62.89 Other specified [facility] Eyad Crouch MD diseases of anus AT [place] and rectum Office Visit 08/22/2018 1:00p [place] Carmen Campos, G20 Parkinson's Neurologic Serv M.D. disease Of [facility] G31.84 Mild cognitive impairment, so stated M54.2 Cervicalgia R53.1 Weakness R29.6 Repeated falls Office Visit 08/01/2018 [place] Carmen Campos, G20 Parkinson's 10:30a Neurologic Serv Of M.D. disease [facility] G31.84 Mild cognitive impairment, so stated M54.2 [...] Carmen Campos M.D. Plan of Treatment Future Appointment(s):01/23/2019 1:30 pm - Traveling ECHO 2 at [facility] AT Pkzhqksv49/19/2019 1:00 pm - Carmen Campos M.D. at [place] [facility]01/16/2019 - Luciano Reno M.D.G47.33 Obstructive sleep apnea (adult) (pediatric)I10 Essential (primary) hypertensionFollow up:one yr ovE78.5 Hyperlipidemia, xidxwziqwjqK08.819 Aortic ectasia, unspecified siteNew Orders:Echocardiogram, Scheduled: 01/23/19I35.0 Nonrheumatic aortic (valve) wpeozqibK05.9 Obesity, unspecified Functional Status Description No Information Available Mental Status Description No Information Available Referrals Description No Information Available
--- OUTSIDE RECORDS SUMMARY | 2019-01-26 10:04 | XMS REPORT | Continuity of Care Document ---
:1935 External Reference #:[id number] Author Name Jose J Pollock M.D. (transmitted by agent of provider Aleja Rosario) Address [address] [facility], [address] [place] [id number] Care Team Providers Name Role Phone Jose J Pollock III, MD - Internal Care Team Information Repairer Handtools Medicine Clovis Pillai MD - Urology Care Team Information Repairer Handtools [phone] Nick Frank MD - Care Team Information Repairer Handtools [phone] Ophthalmology Problems Active Problems Provider Date Benign [...] Luciano Reno M.D. Onset: 10/11/2013 Essential hypertension JoseJ Pollock M.D. Onset: 02/04/2015 Obstructive sleep apnea [...] 5 cigs per day. Smoking Status Reviewed: 12/01/18 Started at 17, quit at 21. Smoked [...] seat. dx: m48.07 and g20 Sinemet 1 po tid 405tabs Carmen Campos, 01/10/2013 25-100mg M.DReginald Tablets Miralax 1/2 dose po qday [...] CPT Code Status Date Vaccine Lot # 50581 Given 02/02/2018 Fluzone High Dose 62742 Given 02/07/2017 Influenza Virus Vaccine, Quadrivalent, Split, Preservative Free 24893 Given 02/26/2016 Fluzone High Dose 76507 Given 02/04/2015 Influenza Virus Vaccine, Quadrivalent, Split, [id number] Preservative Free 70817 Given 09/02/2014 Pneumococcal Conjugate Vaccine 13 Valent For [id number] Intramuscular Use 18672 Given 01/23/2014 Tdap - Tetanus/Diptheria/Acellular Pertussis [id number] 08838 Given 01/23/2014 Influenza Virus Vaccine, Quadrivalent, Split, [id number] Preservative Free Q2038 Given 02/03/2012 Fluzone Vaccine Q2038 Given 01/25/2012 Fluzone Vaccine Q2038 Given 01/04/2011 Fluzone Vaccine [id number] 24622 Given 02/10/2010 Influenza Virus 3Yrs & Over [id number] 56493 Given 02/13/2009 Influenza Virus 3Yrs & Over 33153 Given 11/22/2007 Zoster (Zostavax) [id number] 61971 Given 11/07/2003 Td (History By Patient) 59194 Given 10/20/2000 Pneumovax (History By Patient) Vital Signs Date Vital Result Comment 12/01/2018 11:57am Height 62 inches 5'2" Weight 180.38 lb w/ shoes Heart Rate 86 /min BP Systolic Sitting 132 mmHg Rue reg cuff BP Diastolic Sitting 80 mmHg Rue reg cuff BP Systolic Recheck 122 mmHg Rue reg cuff - recheck after 15 min. BP Diastolic Recheck 77 mmHg Rue reg cuff - recheck after 15 min. O2 % BldC Oximetry 96 % BMI (Body Mass Index) 33.0 kg/m2 09/22/2018 9:05am Height 62 inches 5'2" Weight 180.00 lb Heart Rate 78 /min BP Systolic Sitting 114 mmHg BP Diastolic Sitting 58 mmHg Respiratory Rate 12 /min Pain Level 8 BMI (Body Mass Index) 32.9 kg/m2 Results Description No Information Available Procedures Date Code Description Status 11/05/2014 [id number] Mammogram Completed 03/29/2013 [id number] Diabetic Retinal Eye Exam Completed 03/12/2013 456012491 Diabetic Retinal Eye Exam Completed 01/20/2012 [id number] Colonoscopy Completed 05/14/2002 [id number] Colonoscopy Completed Medical Devices Description No Information Available Encounters Type Date Location Provider Dx Diagnosis Office Visit 09/22/2018 [facility] K62.89 Other specified 9:00a Of Bioassayist AT [place] MD Miko diseases of anus and rectum Office Visit 08/22/2018 [facility] Carmen Campos, G20 Parkinson's 1:00p Neurologic Serv Of M.D. disease [facility] G31.84 Mild cognitive impairment, so stated M54.2 Cervicalgia R53.1 Weakness R29.6 Repeated falls Office Visit 08/01/2018 [facility] Carmen Campos, G20 Parkinson's 10:30a Neurologic Serv Of M.D. disease [facility] G31.84 Mild cognitive impairment, so stated M54.2 Cervicalgia R53.1 Weakness R29.6 Repeated falls Office Visit 07/11/2018 11:45a Surgical Abdirizak Wesley60.2 Anal fissure, [facility] Eyad Crouch MD unspecified AT [place] Assessments Date Code Description Provider 12/01/2018 I10 Essential (primary) hypertension Jose J Pollock M.D. 12/01/2018 G20 Parkinson's disease Jose J Pollock M.D. 12/01/2018 G47.33 Obstructive sleep apnea (adult) (pediatric) Jose J Pollock M.D. 09/22/2018 K62.89 Other specified diseases of anus and rectum Abdirizak Crouch MD 08/22/2018 G20 Parkinson's disease Carmen Campos M.D. [...] 08/01/2018 R29.6 Repeated falls Carmen Campos M.D. 07/11/2018 K60.2 Anal fissure, unspecified Abdirizak Crouch MD Plan of Treatment Future Appointment(s):01/09/2019 3:20 pm - Luciano [facility]o M[facility]D. at [facility]12/11/2018 1:00 pm - Carmen Campos M.D. at [facility] Neurologic Serv [facility]12/01/2018 - Jose J Pollock M.D.I10 Essential (primary ) hypertensionComments:Higher home BPs noted transiently last month, but ok lately. BP today good; continue Rx, home BP eewiqsF48 Parkinson's diseaseComments:Pt notes increased gait issues and cognitive problems; following with neurology with a recheck on 12/11G4.33 Obstructive sleep apnea ( adult) (pediatric)Comments:Chronic poor sleep; pt couldn't tolerate CPAP but has been using a dental appliance. He just got a new one. Follows with Dr Nuñez Functional Status Description No Information Available Mental Status Description No Information Available Referrals Description No Information Available
--- OUTSIDE RECORDS SUMMARY | 2019-01-26 10:04 | XMS REPORT | Continuity of Care Document ---
:1935 External Reference #:[id number] Author Name Carmen Campos M.D. (transmitted by agent of provider Christian Knight) Address [address], [place] [address] Care Team Providers Name Role Phone Jose J Pollock III, MD - Internal Care Team Information [employer] Clerk [phone] Medicine Clovis Pillai MD - Urology Care Team Information [employer] Clerk [phone] Nick Frank MD - Care Team Information [employer] Clerk [phone] Ophthalmology Problems Active Problems Provider Date Benign [...] 5 cigs per day. Smoking Status Reviewed: 12/11/18 Started at 17, quit at 21. Smoked [...] 4 thick 1units G20 Carmen Campos, 12/01/2016 [facility] shelia molina M.D. basket and seat. dx: [...] CPT Code Status Date Vaccine Lot # [id number] Given 02/02/2018 Fluzone High Dose 55459 Given 02/07/2017 Influenza Virus Vaccine, Quadrivalent, Split, Preservative Free 70729 Given 02/26/2016 Fluzone High Dose 52303 Given 02/04/2015 Influenza Virus Vaccine, Quadrivalent, Split, [id number] Preservative Free 19113 Given 09/02/2014 Pneumococcal Conjugate Vaccine 13 Valent For [id number] Intramuscular Use 19393 Given 01/23/2014 Tdap - Tetanus/Diptheria/Acellular Pertussis [id number] 42153 Given 01/23/2014 Influenza Virus Vaccine, Quadrivalent, Split, [id number] Preservative Free Q2038 Given 02/03/2012 Fluzone Vaccine [id number] Given 01/25/2012 Fluzone Vaccine Q2038 Given 01/04/2011 Fluzone Vaccine [id number] 55526 Given 02/10/2010 Influenza Virus 3Yrs & Over [id number] 14095 Given 02/13/2009 Influenza Virus 3Yrs & Over 91914 Given 11/22/2007 Zoster (Zostavax) [id number] 54076 Given 11/07/2003 Td (History By Patient) 86489 Given 10/20/2000 Pneumovax (History By Patient) Vital Signs Date Vital Result Comment 12/11/2018 1:05pm Height 62 inches 5'2" Weight 179.00 lb Heart Rate 74 /min BP Systolic Sitting 108 mmHg BP Diastolic Sitting 54 mmHg Respiratory Rate 14 /min O2 % BldC Oximetry 94 % BMI (Body Mass Index) 32.7 kg/m2 12/01/2018 11:57am Height 62 inches 5'2" Weight [...] % BMI (Body Mass Index) 33.0 kg/m2 Results Description No Information Available Procedures Date Code Description Status 11/05/2014 59039652 Mammogram Completed 03/29/2013 120264834 Diabetic Retinal Eye Exam Completed 03/12/2013 191558867 Diabetic Retinal Eye Exam Completed 01/20/2012 [id number] Colonoscopy Completed 05/14/2002 [id number] Colonoscopy Completed Medical Devices Description No Information Available Encounters Type Date Location Provider Dx Diagnosis Office Visit 12/01/2018 [facility] Jose J Pollock, I10 Essential ( primary) 11:20a Medicine - [facility] [place] hypertension G20 Parkinson's disease G47.33 Obstructive sleep apnea (adult) (pediatric) Office Visit 09/22/2018 9:00a Surgical Abdirizak Wesley62.89 Other specified [facility] MD diseases of anus AT [place] and rectum Office Visit 08/22/2018 1:00p [place] Carmen Campos G2Elisa Parkinson's Neurologic Serv M.D. disease Of [facility] G31.84 Mild cognitive impairment, so stated M54.2 Cervicalgia R53.1 Weakness R29.6 Repeated falls Office Visit 08/01/2018 [place] Carmen Campos G2Elisa Parkinson's 10:30a Neurologic Serv Of M.D. disease [facility] G31.84 Mild cognitive impairment, so stated M54.2 Cervicalgia R53.1 Weakness R29.6 Repeated falls Office Visit 07/11/2018 11:45a Surgical Abdirizak Wesley60.2 Anal fissure, [facility] MD unspecified AT [place] Assessments Date Code Description Provider 12/11/2018 G20 Parkinson's disease Carmen Campos M.D. 12/11/2018 G31.84 Mild cognitive impairment, so stated Carmen Campos M.D. 12/11/2018 G47.33 Obstructive sleep apnea (adult) (pediatric) Carmen Campos M.D. 12/11/2018 M54.2 Cervicalhema Campos M.D. 12/11/2018 R53.1 Weakness Carmen Campos [...] Abdirizak Crouch MD Plan of Treatment Future Appointment(s):03/13/2019 1:00 pm - Carmen Campos M.D. at [facility]01/09/2019 3:20 pm - Luciano Reno M.D. at [facility]12/11/2018 - Carmen Campos M.D.G20 Parkinson's diseaseFollow up:3-4 monthsRecommendations:continue with PTG31.84 Mild cognitive impairment, so dbxpksI85.33 Obstructive sleep apnea (adult) (pediatric )M54.2 CervicalgiaRecommendations:continue your exercises for your neckR53.1 Weakness Functional Status Description No Information Available Mental Status Description No Information Available Referrals Description No Information Available
[2019-01-26 11:00] VITALS: BP 128/66
[2019-01-26] MEDS ORDERED: Acetaminophen TAB* 325 MG PO ONE (11:06)
--- NOTE | 2019-01-26 12:24 | UC ---
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 Had onset of swelling soon after the injury limiting his range of motion. . He has difficulty making a fist. No obvious abrasion. He has hx of osteoarthritis and his preferred pain medication is naproxen, which he uses on occasion. Normal renal function. - History Of Current Complaint Chief Complaint: UCUpperExtremity Stated Complaint: SP FALL-RT HAND INJURY Time Seen by Provider: 01/26/19 12:12 Hx Obtained From: Patient Onset/Duration: Sudden Onset, Lasting Hours - about 24 Severity Initially: Mild Severity Currently: Moderate Pain Intensity: 4 Character Of Pain: Aching, Stiffness Aggravating Factor(s): Movement Alleviating Factor(s): Ice Associated Signs And Symptoms: Positive: Swelling Related History: Dominant Hand Right - Risk Factors Compartment Syndrome Risk Factors: Pain - Allergies/Home Medications Allergies/Adverse Reactions: Allergies Allergy/AdvReac Type Severity Reaction Status Date / Time No Known Allergies Allergy Verified 08/04/18 10:23 Home Medications: Home Medications Amlodipine Besylate [Norvasc] 1 tab PO DAILY 01/26/19 [History Confirmed ] PMH/Surg Hx/FS Hx/Imm Hx Cardiovascular History: Hypertension GI/ History: Gastroesophageal Reflux, Other - interstitial cystitis. 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,BLADDER DISTENSION(STRETCHING-NO IMPLANT) ; SEVERAL EPIDURALS IN LOW BACK - Family History Known Family History: Negative: Cardiac Disease, Hypertension, Diabetes - Social History Occupation: Retired Lives: With Family Alcohol Use: Occasionally Substance Use Type: None Smoking Status (MU): Former Smoker When Did the Patient Quit Smoking/Using Tobacco: 1966 Review of Systems All Other Systems Reviewed And Are Negative: Yes Constitutional: Positive: Negative Skin: Positive: Other - swelling right hand Eyes: Positive: Negative ENT: Positive: Negative Respiratory: Positive: Negative Genitourinary: Positive: Frequency Motor: Positive: Decreased ROM Neurovascular: Positive: Negative Musculoskeletal: Positive: Negative Neurological: Positive: Negative Psychological: Positive: Negative Is Patient Immunocompromised?: No Physical Exam Triage Information Reviewed: Yes Appearance: Other: - elderly man, looks chronically unwell Vital Signs: Initial Vital Signs Temp 97.6 F 01/26/19 10:55 Pulse 72 01/26/19 10:55 Resp 16 01/26/19 10:55 BP 128/66 01/26/19 10:55 Pulse Ox 100 01/26/19 10:55 ENT: Positive: Normal ENT inspection Neck: Positive: Supple, Nontender, No Lymphadenopathy Respiratory: Positive: Lungs clear, Normal breath sounds Cardiovascular: Positive: RRR, No Murmur Musculoskeletal Exam: Other - swelling across dorsum of right hand, tender to touch, mildly warm, consistent with contusion/hematoma. No pain with passive rom of digits. Musculoskeletal: Positive: ROM Limited @ - at right wrist, with decreased flexion and extension. Neurological: Positive: Alert Psychological Exam: Normal Skin Exam: Other - skin intact on hand. Diagnostics - Radiology No standard instances Radiology Interpretation Completed By: Radiologist Summary of Radiographic Findings: No fracture seen wrist or hand per Dr. Martínez Hand/Wrist Course/Dx - Course Course Of Treatment: pain control and DASIA wrap. Overall pain is consistent with injury, and I am not suspicious of cellulitis at this time. - Differential Dx/Diagnosis Differential Diagnosis/HQI/PQRI: Cellulitis, Contusion, Fracture Provider Diagnosis: Contusion of right hand Discharge ED - Sign-Out/Discharge Documenting (check all that apply): Patient Departure All imaging exams completed and their final reports reviewed: Yes - Discharge Plan Condition: Stable Disposition: HOME Patient Education Materials: Contusion in Adults (ED) Referrals: Jose J Pollock MD [Primary Care Provider] - Additional Instructions: The swelling in your hand is the result of the trauma, and there is no evidence of fracture. At this time, I do not think that there is an infection in the skin, but if your pain and swelling increase, please come for reassessment. Use DASIA wrap for comfort, and use of acetaminophen and occasional naproxen. - Billing Disposition and Condition Condition: STABLE Disposition: Home
== END 2019-01-26 12:46 | disposition home or self-care (01) ==
LOC: UCCORT 09:51
DX: S60.221A Contusion of right hand, initial encounter (principal); I10 Essential (primary) hypertension; K21.9 Gastro-esophageal reflux disease without esophagitis; G20 Parkinson's disease; Z79.899 Other long term (current) drug therapy; Z87.891 Personal history of nicotine dependence; N30.10 Interstitial cystitis (chronic) without hematuria; W19.XXXA Unspecified fall, initial encounter; Y92.9 Unspecified place or not applicable
CPT/HCPCS: 99212; A9270-GY; G0463

== ENCOUNTER 2019-02-02 11:08 | Emergency (ER) | payer MEDICARE, BC | END 2019-02-02 11:28 | disposition left against medical advice (07) | LOC: UCCORT 11:08 | DX: Z53.21 Procedure and treatment not carried out due to patient leaving prior to being seen by health care provider (principal) ==

== ENCOUNTER 2021-03-11 20:22 | Observation (INO) ==
[2021-03-11] MEDS ORDERED: NS 0.9% 1000 ml BAG 1,000 ML IV ONE (20:56)
[2021-03-11 22:47] LABS: ABS Eosinophils 0.1 10^3/ul (0-0.6); ABS Lymphocytes 1.1 10^3/ul (1.0-4.8); ABS Monocytes 0.6 10^3/ul (0-0.8); Eosinophil % 1.5 %; Hematocrit 45 % (42-52); Hemoglobin 15.3 g/dL (14.0-18.0); Lymphocyte % 16.5 %; Mean Corpuscular HGB Conc 34 g/dL (31-36); Mean Corpuscular Hemoglobin 30 pg (27-31); Mean Corpuscular Volume 87 fL (80-94); Mean Platelet Volume 7.1 fL (7.4-10.4); Platelet Count 188 10^3/uL (150-450); Red Blood Count 5.12 10^6 /uL (4.18-5.48); Red Cell Distribution Width 13 % (10-15); White Blood Count 6.9 10^3/uL (3.5-10.8)
[2021-03-11 22:54] LABS: INR 1.07 (0.86-1.15)
[2021-03-11 22:55] LABS: Urine Appearance Clear; Urine Bilirubin Negative (Negative); Urine Blood Negative (Negative); Urine Color Yellow; Urine Glucose Negative (Negative); Urine Ketones Trace (Negative); Urine Nitrite Negative (Negative); Urine Protein Negative (Negative); Urine Specific Gravity 1.014 (1.002-1.030); Urine Urobilinogen Negative (Negative)
[2021-03-11] MEDS ORDERED: hydrALAZINE 20 mg/ml 1 ML Vial IV IV SLOW PU ONE (23:00)
[2021-03-11 23:04] LABS: Rapid COVID-19 Molecular Undetected (Undetected)
[2021-03-11 23:09] LABS: Albumin 4.1 g/dL (3.2-5.2); Albumin/Globulin Ratio 1.6 (1-3); Calcium 9.1 mg/dL (8.6-10.3); Globulin 2.5 g/dL (2-4); Magnesium 2.1 mg/dL (1.9-2.7); Potassium 3.8 mmol/L (3.5-5.0); Total Bilirubin 1.3 mg/dL (0.2-1.0); Total Protein 6.6 g/dL (6.4-8.9)
[2021-03-11 23:10] LABS: Troponin I 0.01 ng/mL (<0.03)
[2021-03-11] MEDS ORDERED: Lorazepam PYXIS KEY PRN (23:31)
[2021-03-11] MEDS ORDERED: LORazepam 2 mg VIAL 1 ml IV PUSH ONE (23:32)
[2021-03-12 01:49] LABS: Activated Partial Thrombo Time 29.4 seconds (26.0-38.0); INR 1.13 (0.86-1.15)
[2021-03-12 02:00] LABS: Influenza A Molecular Negative (Negative); Influenza B Molecular Negative (Negative)
[2021-03-12 05:54] LABS: ABS Eosinophils 0.1 10^3/ul (0-0.6); ABS Monocytes 0.8 10^3/ul (0-0.8); ABS Neutrophils 6.7 10^3/ul (1.5-7.7); Eosinophil % 0.7 %; Hematocrit 42 % (42-52); Hemoglobin 14.5 g/dL (14.0-18.0); Lymphocyte % 11.7 %; Mean Corpuscular HGB Conc 34 g/dL (31-36); Mean Corpuscular Hemoglobin 30 pg (27-31); Mean Corpuscular Volume 87 fL (80-94); Mean Platelet Volume 7.4 fL (7.4-10.4); Platelet Count 196 10^3/uL (150-450); Red Blood Count 4.84 10^6 /uL (4.18-5.48); Red Cell Distribution Width 13 % (10-15); White Blood Count 8.5 10^3/uL (3.5-10.8)
[2021-03-12] MEDS ORDERED: Heparin 5000 UNITS/ML 1 mL VIAL SUBCUT SCH (06:00)
[2021-03-12 06:17] LABS: Calcium 8.9 mg/dL (8.6-10.3); Potassium 3.4 mmol/L (3.5-5.0)
[2021-03-12 06:51] LABS: INR 1.15 (0.86-1.15)
[2021-03-12] MEDS ORDERED: Silodosin 8 mg CAP (NF) PO SCH (08:30)
[2021-03-12] MEDS ORDERED: Polyethylene Glycol 3350 17 GM PACKET PO SCH (09:00)
[2021-03-12] MEDS ORDERED: Carbidopa/Levodop 25/100 MG TAB PO SCH (09:00)
[2021-03-12 15:08] VITALS: BP 152/82
== END 2021-03-12 15:30 | disposition home or self-care (01) ==
LOC: MEDTELE 20:22 → ED 20:22 → SUATTDRO 03-12 00:24 → MEDTELE 03-12 02:21
PROVIDERS: ADMIT Hospitalist; ATTEND Student in an Organized Health Care Education/Training Program